=== PATIENT | female | born 1940 | race Caucasian/White ===

== ENCOUNTER 2016-06-16 18:04 | Inpatient (IN) | payer MEDICARE, OTHER ==
[~2016-06-16] VITALS: Ht 157.5 cm; Wt 51.1 kg
[~2016-06-16 18:04] MED LIST: AMLO10 PO; CEFT250T8 PO; GABA100C4 PO; ISOS10TA PO; LACTCHW3 CHEW; METO100T PO; POTA10TA2 PO; PRED5TAB PO; SERT-132 PO
[2016-06-16 18:10] VITALS: BP 166/91; PULSE 99; RESP 24; TEMP 99.2; O2SAT 96
--- NOTE | 2016-06-16 18:37 | PD ---
HPI Chief Complaint: Fever Time Seen by Provider: 18:37 Travel History International Travel<30 days: No Contact w/Intl Traveler<30days: No Traveled to known affect area: No History of Present Illness HPI 76-year-old female with history of renal transplant 2004, CAD, previous PR with stent placement, diabetes, hypertension, presents to the emergency department for evaluation of a fever. Patient began having fever this morning. Male who accompanies her tells me that about 2 weeks ago she sustained a laceration to the left lower extremity. She did not get repaired immediately but rather 2 days later. She was placed on oral antibiotics and took this for about 3 days until she developed diarrhea then stopped. He is concerned that this may be the source of her infection. Patient denies any chest pain or tightness. No cough or chest congestion. No nausea, vomiting, diarrhea. Tells me that her voids and bowel movements are normal. States that she feels weak and tired. She has no other symptoms to report. PFSH Past Medical History Arthritis: Yes Cancer: No Cardiovascular Problems: No Diabetes: Yes Diminished Hearing: No Endocrine: Yes GERD: Yes Genitourinary: Yes Hiatal Hernia: Yes ("double hernia") Hypertension: Yes Immune Disorder: No Insomnia: Yes Musculoskeletal: Yes Neurologic: No Psychiatric: No Reproductive: No Respiratory: No Immunizations Current: Yes Myocardial Infarction: Yes Renal Failure: Yes Thyroid Disease: Yes ?: Not Past Surgical History Body Medical Devices: 2 stents, "screws in toes" Cardiac Surgery: Yes (2 stents) Coronary Stent: Yes Eye Surgery: Yes (eyelid reconstruction) Genitourinary Surgery: Yes (KIDNEY TRANSPLANT) Social History Alcohol Use: Yes (WEEKLY) Tobacco Use: No Substance Use: No Allergies-Medications (Allergen,Severity, Reaction): Coded Allergies: Cipro (Verified Allergy, Severe, Itching, 06/16/16) Reported Meds & Prescriptions Reported Meds & Active Scripts Active Lactinex (Lactobacillus Acidophilus) 1 Chew 1 Tab CHEW DAILY Reported Tacrolimus 0.5 Mg Cap 0.5 Mg PO HS Prograf (Tacrolimus) 1 Mg Cap 1 Mg PO HS Tacrolimus 1 Mg Cap 2 Mg PO DAILY IN THE MORNING Mycophenolate (Mycophenolate Mofetil) 500 Mg Tab 500 Mg PO BID K-Tab (Potassium Chloride) 20 Meq Tab 20 Meq PO DAILY Gabapentin 100 Mg Cap 100 Mg PO TID Metoprolol Tartrate 100 Mg Tab 100 Mg PO BID Prednisone 5 Mg Tab 5 Mg PO DAILY Sertraline (Sertraline HCl) 50 Mg Tab 50 Mg PO DAILY Isosorbide Dinitrate 10 Mg Tab 10 Mg PO DAILY Review of Systems Except as stated in HPI: all other systems reviewed are Neg Physical Exam Narrative GENERAL: Ill-appearing elderly female patient, sitting in her chair, in no acute distress SKIN: Warm and dry. Approximated skin tear/wound to the left distal lower extremity of moderate erythema and edema surrounding it extending to the left distal foot. HEAD: Atraumatic. Normocephalic. EYES: Pupils equal and round. No scleral icterus. No injection or drainage. ENT: No nasal bleeding or discharge. Mucous membranes pink and moist. NECK: Trachea midline. No JVD. CARDIOVASCULAR: Elevated rate and rhythm. No murmur appreciated. RESPIRATORY: No accessory muscle use. Diminished to auscultation. Breath sounds equal bilaterally. GASTROINTESTINAL: Abdomen soft, non-tender, nondistended. Hepatic and splenic margins not palpable. MUSCULOSKELETAL: No obvious deformities. No clubbing. No cyanosis. NEUROLOGICAL: Awake and alert. No obvious cranial nerve deficits. Motor grossly within normal limits. Data Data Last Documented VS Vital Signs Date Time Temp Pulse Resp B/P Pulse Ox O2 Delivery O2 Flow Rate FiO2 06/16/16 18:10 99.2 99 24 166/91 96 Room Air Orders Electrocardiogram (06/16/16 18:33) Complete Blood Count With Diff (06/16/16 18:33) Comprehensive Metabolic Panel (06/16/16 18:33) Prothrombin Time / Inr (Pt) (06/16/16 18:33) Act Partial Throm Time (Ptt) (06/16/16 18:33) Lactic Acid Sepsis Protocol (06/16/16 18:33) Magnesium (Mg) (06/16/16 18:33) Lipase (06/16/16 18:33) Ckmb (Isoenzyme) Profile (06/16/16 18:33) Troponin I (06/16/16 18:33) Urinalysis - C+S If Indicated (06/16/16 18:33) Influenzae A/B Antigen (06/16/16 18:33) Blood Culture (06/16/16 18:33) Chest, Single Ap (06/16/16 18:33) Ct Brain W/O Iv Contrast(Rout) (06/16/16 ) Sodium Chlor 0.9% 1000 Ml Inj (Ns 1000 M (06/16/16 20:00) Cefepime Inj (Maxipime Inj) (06/16/16 20:00) Vancomycin Inj (Vancomycin Inj) (06/16/16 20:00) Labs Laboratory Tests Test 06/16/16 06/16/16 19:32 19:34 White Blood Count 11.3 TH/MM3 Red Blood Count 3.27 MIL/MM3 Hemoglobin 9.9 GM/DL Hematocrit 30.9 % Mean Corpuscular Volume 94.4 FL Mean Corpuscular Hemoglobin 30.2 PG Mean Corpuscular Hemoglobin 32.0 % Concent Red Cell Distribution Width 15.4 % Platelet Count 205 TH/MM3 Mean Platelet Volume 8.1 FL Neutrophils (%) (Auto) 85.9 % Lymphocytes (%) (Auto) 6.3 % Monocytes (%) (Auto) 6.7 % Eosinophils (%) (Auto) 0.6 % Basophils (%) (Auto) 0.5 % Neutrophils # (Auto) 9.7 TH/MM3 Lymphocytes # (Auto) 0.7 TH/MM3 Monocytes # (Auto) 0.8 TH/MM3 Eosinophils # (Auto) 0.1 TH/MM3 Basophils # (Auto) 0.1 TH/MM3 CBC Comment AUTO DIFF Prothrombin Time 12.0 SEC Prothromb Time International 1.1 RATIO Ratio Activated Partial 30.5 SEC Thromboplast Time Sodium Level 133 MEQ/L Potassium Level 4.3 MEQ/L Chloride Level 102 MEQ/L Carbon Dioxide Level 22.0 MEQ/L Anion Gap 9 MEQ/L Blood Urea Nitrogen 41 MG/DL Creatinine 3.94 MG/DL Estimat Glomerular Filtration 11 ML/MIN Rate Random Glucose 94 MG/DL Calcium Level 8.7 MG/DL Magnesium Level 1.6 MG/DL Aspartate Amino Transf 16 U/L (AST/SGOT) Albumin 3.4 GM/DL Lipase 199 U/L Lactic Acid Level 0.9 mmol/L [facility] Medical Decision Making Medical Screen Exam Complete: Yes Emergency Medical Condition: Yes Medical Record Reviewed: Yes Differential Diagnosis Sepsis versus pneumonia versus UTI versus influenza versus cellulitis versus infected wound versus renal failure Narrative Course 76-year-old female [facility]. Workup was initiated in triage. Once a medical bed becomes available, patient will be transferred and care assumed by that provider. Condition: Stable Nuvia Hilliard Jun 16, 2016 18:37
--- NOTE | 2016-06-16 19:22 | RADRPT ---
EXAM DATE/TIME: 06/16/2016 18:52 [facility] COMPARISON: CHEST SINGLE AP, March 20, 2016, 23:04. INDICATIONS : Patient has had a fever this morning. MEDICAL HISTORY : Myocardial infarction. Diabetes mellitus type 2. SURGICAL HISTORY : Renal transplant ENCOUNTER: Initial ACUITY: 1 day PAIN SCORE: 0/10 LOCATION: chest FINDINGS: Slight cardiomegaly seen. There are atherosclerotic calcifications of the aorta due to chronic athero sclerotic disease. Lungs are clear. CONCLUSION: No appreciable change. KByron Matos MD on June 16, 2016 at 19:19 Board Certified Radiologist. This report was verified electronically.
--- NOTE | 2016-06-16 19:24 | RADRPT ---
EXAM DATE/TIME: 06/16/2016 19:08 [facility] COMPARISON: CT BRAIN W/O CONTRAST, March 20, 2016, 23:19. INDICATIONS : Cephalgia, weakness, and loss of appetite RADIATION DOSE: 33.43 CTDIvol (mGy) MEDICAL HISTORY : Cardiovascular disease. Hypertension. SURGICAL HISTORY : None. ENCOUNTER: Initial ACUITY: 1 day PAIN SCALE: 5/10 LOCATION: cranial TECHNIQUE: Multiple contiguous axial images were obtained of the head. Using automated exposure control and adj ustment of the mA and/or kV according to patient size, radiation dose was kept as low as reasonably a chievable to obtain optimal diagnostic quality images. FINDINGS: There is no evidence for intracranial hemorrhage, mass effect, mass lesions, edema, or extra-axial fl uid collections. The visualized bony structures appear intact. The ventricles are normal size for t he patient's age. There are no signs of acute infarction for technique. There is slight mucoperioste al thickening within the left eithmoid air cells. CONCLUSION: Unremarkable study except for left eithmoid air cells mucoperiosteal thickening. Mago Matos MD on June 16, 2016 at 19:21 Board Certified Radiologist. This report was verified electronically.
--- NOTE | 2016-06-16 19:54 | PD ---
Physical Exam Date Seen by Provider: Jun 16, 2016 Time Seen by Provider: 19:45 Narrative GENERAL: Well-developed mildly ill appearing female in no acute distress no respiratory distress; gcs 15 SKIN: Warm and dry. HEAD: Normocephalic. EYES: No scleral icterus. No injection or drainage. ENT: Mucous memory is dry; airway is patent. NECK: Supple, trachea midline. No JVD or lymphadenopathy. No meningismus no nuchal rigidity. CARDIOVASCULAR: Regular rate and rhythm without murmurs, gallops, or rubs. RESPIRATORY: Breath sounds equal bilaterally. No accessory muscle use. GASTROINTESTINAL: Abdomen soft, non-tender, nondistended. MUSCULOSKELETAL: No cyanosis, or edema. Left lower extremity distal lateral last back healing skin tear laceration without redness induration fluctuance or drainage. BACK: Nontender without obvious deformity. No CVA tenderness. Data Data Last Documented VS Vital Signs Date Time Temp Pulse Resp B/P Pulse Ox O2 Delivery O2 Flow Rate FiO2 06/16/16 20:15 102.0 06/16/16 18:10 99 24 166/91 96 Room Air Orders Electrocardiogram (06/16/16 18:33) Complete Blood Count With Diff (06/16/16 18:33) Comprehensive Metabolic Panel (06/16/16 18:33) Prothrombin Time / Inr (Pt) (06/16/16 18:33) Act Partial Throm Time (Ptt) (06/16/16 18:33) Lactic Acid Sepsis Protocol (06/16/16 18:33) Magnesium (Mg) (06/16/16 18:33) Lipase (06/16/16 18:33) Ckmb (Isoenzyme) Profile (06/16/16 18:33) Troponin I (06/16/16 18:33) Urinalysis - C+S If Indicated (06/16/16 18:33) Influenzae A/B Antigen (06/16/16 18:33) Blood Culture (06/16/16 18:33) Chest, Single Ap (06/16/16 18:33) Ct Brain W/O Iv Contrast(Rout) (06/16/16 ) Sodium Chlor 0.9% 1000 Ml Inj (Ns 1000 M (06/16/16 20:00) Cefepime Inj (Maxipime Inj) (06/16/16 20:00) Vancomycin Inj (Vancomycin Inj) (06/16/16 20:00) Acetaminophen (Tylenol) (06/16/16 20:45) Cath For Specimen (06/16/16 21:29) Urine Culture (06/16/16 21:45) Labs Laboratory Tests Test 06/16/16 06/16/16 06/16/16 19:32 19:34 21:45 White Blood Count 11.3 TH/MM3 Red Blood Count 3.27 MIL/MM3 Hemoglobin 9.9 GM/DL Hematocrit 30.9 % Mean Corpuscular Volume 94.4 FL Mean Corpuscular Hemoglobin 30.2 PG Mean Corpuscular Hemoglobin 32.0 % Concent Red Cell Distribution Width 15.4 % Platelet Count 205 TH/MM3 Mean Platelet Volume 8.1 FL Neutrophils (%) (Auto) 85.9 % Lymphocytes (%) (Auto) 6.3 % Monocytes (%) (Auto) 6.7 % Eosinophils (%) (Auto) 0.6 % Basophils (%) (Auto) 0.5 % Neutrophils # (Auto) 9.7 TH/MM3 Lymphocytes # (Auto) 0.7 TH/MM3 Monocytes # (Auto) 0.8 TH/MM3 Eosinophils # (Auto) 0.1 TH/MM3 Basophils # (Auto) 0.1 TH/MM3 CBC Comment AUTO DIFF Differential Total Cells 100 Counted Neutrophils % (Manual) 87 % Band Neutrophils % 2 % Lymphocytes % 6 % Monocytes % 4 % Neutrophils # (Manual) 10.2 TH/MM3 Metamyelocytes 1 % Differential Comment FINAL DIFF MANUAL Platelet Estimate NORMAL Platelet Morphology Comment NORMAL Ovalocytes 2+ Prothrombin Time 12.0 SEC Prothromb Time International 1.1 RATIO Ratio Activated Partial 30.5 SEC Thromboplast Time Sodium Level 133 MEQ/L Potassium Level 4.3 MEQ/L Chloride Level 102 MEQ/L Carbon Dioxide Level 22.0 MEQ/L Anion Gap 9 MEQ/L Blood Urea Nitrogen 41 MG/DL Creatinine 3.94 MG/DL Estimat Glomerular Filtration 11 ML/MIN Rate Random Glucose 94 MG/DL Calcium Level 8.7 MG/DL Magnesium Level 1.6 MG/DL Total Bilirubin 0.4 MG/DL Aspartate Amino Transf 16 U/L (AST/SGOT) Alanine Aminotransferase 10 U/L (ALT/SGPT) Alkaline Phosphatase 63 U/L Total Creatine Kinase 58 U/L Troponin I 0.08 NG/ML Total Protein 7.1 GM/DL Albumin 3.4 GM/DL Lipase 199 U/L Lactic Acid Level 0.9 mmol/L Urine Color YELLOW Urine Turbidity CLEAR Urine pH 6.0 Urine Specific [place] 1.009 Urine Protein 100 mg/dL Urine Glucose (UA) NEG mg/dL Urine Ketones NEG mg/dL Urine Occult Blood TRACE Urine Nitrite NEG Urine Bilirubin NEG Urine Urobilinogen LESS THAN 2.0 MG/DL Urine Leukocyte Esterase LARGE Urine RBC 6 /hpf Urine WBC 48 /hpf Urine WBC Clumps OCC Urine Bacteria FEW /hpf Microscopic Urinalysis Comment CATH-CULTURE IND MDM Medical Record Reviewed: Yes Supervised Visit with MICKIE: Yes (patient evaluated and seen by me and concur with MICKIE assessment and plan.) Interpretation(s) EKG: Sinus rhythm rate 99 left bundle branch block; prior EKG from 04/01 shows evidence of left bundle branch block Last Impressions Chest X-Ray 06/16/16 1833 Signed Impressions: Service Date/Time: June 18:52 - CONCLUSION: No appreciable change. Mago Matos MD Head CT 06/16/16 0000 Signed Impressions: Service Date/Time: , June 16, 2016 19:08 - CONCLUSION: Unremarkable study except for left eithmoid air cells mucoperiosteal thickening. Mago Matos MD Differential Diagnosis Generalized weakness, febrile illness, sepsis, UTI, bacteremia, dehydration, electronic disturbance Narrative Course 76-year-old female with extensive past medical history including renal transplant in 2004 on chronic immunosuppressants anemia of chronic disease and secondary to kidney disease directions 10,000 units weekly last injection was Monday of this week hypothyroidism type 2 diabetes as well as history of CAD with stent placement anxiety depression reflux dyslipidemia hypertension and blood transfusions. Patient reportedly today was noted by significant other to have increasing fatigue and generalized weakness and reportedly had a temperature home of 102F. Medications were not administered as antipyretics prior to patient's arrival. Patient recently arrived here from [place] on 6 days ago on Monday. Patient has recently been on a four-day course of antibiotic for management of a wound infection to the left lower extremity however due to developing diarrhea this was discontinued 1 week ago on Monday. Patient was here in March 2016 and admitted for sepsis UTI. Patient was followed up as an outpatient March 29 by her primary here locally and was stable with plan to return to [place] and has done well following up with her neurologist there and was seen by her emergency room clinician prior to arrival leaving [place] on Monday. Patient's had no further diarrhea and has had continued good urine output. In view of patient's immunosuppression patient here will be started on IV antibiotics presumptively in view of reported temperature of 10 2 F lab values are pending urinalysis is pending. At 9:33 PM patient resting comfortably urinalysis pending troponin I is noted to be elevated at 0.08; worsening renal function creatinine 3.94 with GFR of 11 ; lactic acid is not elevated at 0.6 CBC is automated differential total white cell count is 11,300 with manual differential of 87% neutrophils Patient's case discussed with on-call medicine physician for admission for febrile illness, UTI possible sepsis patient's heart rate temperature meet SIRS criteria and urinalysis meets sepsis criteria; patient otherwise remaining hemodialysis stable has received IV antibiotics and per admitting physician patient will initially be admitted as an observation admission. Sepsis Criteria SIRS Criteria (2 or more): Heart rate over 90, WBC > 90752, < 4000 or > 10% bands Sepsis Criteria (SIRS+source): Infect source susp/known (uti) Physician Communication Physician Communication discussed with Dr aBy--will admit as OBS Diagnosis Primary Impression: Febrile illness Additional Impressions: UTI (urinary tract infection) Renal transplant recipient Admitting Information Admitting Physician Requests: Observation Karen José MD Jun 16, 2016 19:54
[2016-06-16 19:58] LABS: AUTOMATED NEUTROPHIL # 9.7 TH/MM3 (1.8-7.7); BASOPHIL # 0.1 TH/MM3 (0-0.2); BASOPHIL % 0.5 % (0.0-2.0); EOSINOPHIL # 0.1 TH/MM3 (0-0.4); EOSINOPHIL % 0.6 % (0.0-4.0); HEMATOCRIT 30.9 % (35.0-46.0); LYMPH % 6.3 % (9.0-44.0); LYMPHOCYTE # 0.7 TH/MM3 (1.0-4.8); MEAN CELL VOLUME 94.4 FL (80.0-100.0); MEAN CORPUSCULAR HEMOGLOBIN 30.2 PG (27.0-34.0); MONO % 6.7 % (0.0-8.0); NEUT % 85.9 % (16.0-70.0); PLATELET COUNT 205 TH/MM3 (150-450); RED BLOOD COUNT 3.27 MIL/MM3 (4.00-5.30); RED CELL DISTRIBUTION WIDTH 15.4 % (11.6-17.2); WHITE BLOOD COUNT 11.3 TH/MM3 (4.0-11.0)
[2016-06-16] MEDS ORDERED: VANCOMYCIN INJ 1,000 MG in SODIUM CHLOR 0.9% 250 ML INJ 250 ML IV ONE (20:00)
[2016-06-16] MEDS ORDERED: CEFEPIME INJ 2,000 MG in SODIUM CHLORIDE 0.9% INJ 100 ML IV ONE (20:00)
[2016-06-16] MEDS ORDERED: SODIUM CHLOR 0.9% 1000 ML INJ 1,000 ML IV ONE (20:00)
[2016-06-16 20:05] LABS: APTT (PATIENT) 30.5 SEC (24.3-30.1); INTERNATIONAL NORMALIZED RATIO 1.1 RATIO
[2016-06-16 20:08] LABS: HEMO FLAGS AUTO DIFF
[2016-06-16 20:15] VITALS: BP 159/79; PULSE 78; RESP 18; TEMP 102; O2SAT 96
[2016-06-16] MEDS ORDERED: POTA1TAB4 PO (20:18)
[2016-06-16] MEDS ORDERED: TACR1CAP PO (20:24)
[2016-06-16] MEDS ORDERED: TACR1 PO (20:24)
[2016-06-16] MEDS ORDERED: MYCO500T PO (20:24)
[2016-06-16 20:26] LABS: ANION GAP 9 MEQ/L (5-15); AST (GOT) 16 U/L (15-37); BLOOD UREA NITROGEN 41 MG/DL (7-18); CHLORIDE 102 MEQ/L (98-107); GLOMERULAR FILTRATION RATE 11 ML/MIN (>89); MAGNESIUM 1.6 MG/DL (1.5-2.5); POTASSIUM 4.3 MEQ/L (3.5-5.1); SODIUM (NA) 133 MEQ/L (136-145)
[2016-06-16] MEDS ORDERED: TACR0.5C PO (20:26)
[2016-06-16 20:32] LABS: ALKALINE PHOSPHATASE 63 U/L (45-117); ALT (GPT) 10 U/L (10-53); CREATINE KINASE 58 U/L (26-192); TOTAL BILIRUBIN ADULT 0.4 MG/DL (0.2-1.0)
[2016-06-16] MEDS ORDERED: ACETAMINOPHEN 325 MG TAB PO ONE (20:45)
[2016-06-16 20:47] LABS: BANDS 2 % (0-6); METAMYELOCYTES 1 % (0-1); NEUTROPHIL # MANUAL DIFF 10.2 TH/MM3 (1.8-7.7); POLYS (SEG NEUTROPHILS) 87 % (16-70); WBC DIFF SAMPLE 100
[2016-06-16 20:48] LABS: OVALOCYTES 2+ (NORMAL); PLATELET ESTIMATE SMEAR NORMAL (NORMAL); PLATELET MORPHOLOGY NORMAL (NORMAL); SCAN/DIFF FINAL DIFF MANUAL
[2016-06-16 22:45] LABS: BACTERIA, URINE FEW /hpf; BLOOD, URINE TRACE (NEG); GLUCOSE,URINE NEG (NEG); KETONE, URINE NEG (NEG); NITRITE,URINE NEG (NEG); URINE COLOR YELLOW (YELLW/STRAW)
[2016-06-16 22:46] LABS: COMMENT (UR) CATH-CULTURE IND; CULTURE IF INDICATED CATH CULTURE IND
[2016-06-16] MEDS ORDERED: SODIUM CHLORIDE 0.9% FLUSH 5 ML FLUSH IVF PRN (23:15)
[2016-06-17] VITALS (9 sets, daily range): BP systolic 120–185; BP diastolic 66–90; PULSE 72–103; RESP 17–19; TEMP 97.3–102.1; O2SAT 94–99
[2016-06-17] MEDS ORDERED: NALOXONE HCL 0.4 MG/ML AMP IV PRN (00:30)
[2016-06-17] MEDS ORDERED: SODIUM CHLORIDE 0.9% FLUSH 5 ML FLUSH FLUSH PRN (00:30)
[2016-06-17] MEDS ORDERED: GLUCAGON 1 MG/ML VIAL OTHER PRN (00:30)
[2016-06-17] MEDS ORDERED: DEXTROSE 50% IN WATER 50 ML VIAL(D50) IV PUSH PRN (00:30)
--- NOTE | 2016-06-17 04:35 | HHI.HP ---
[facility] Service [facility] Primary Care Physician Non-Staff Admission Diagnosis febrile illness; UTI Diagnoses: Chief Complaint: headaches, chills, fatigue Travel History International Travel<30 Days: No Contact w/Intl Traveler <30 Da: No Traveled to Known Affected Are: No Sepsis Criteria SIRS Criteria (2 or more): Temp > 100.9 or < 96.8, Heart rate over 90, WBC > 86374, < 4000 or > 10% bands Sepsis Criteria (SIRS+source): Infect source susp/known History of Present Illness History taken from patient and ED physician. 76 y/o female with history of DM, HTN, osteoarthritis and renal transplant was brought in by her with complaints of headaches, chills, and fatigue. Patient states she has been fatigued with headaches for about a week. Upon assessment patient is found to be very chilly, and requiring many blankets. Currently afebrile. She denies any cough, sob or chest pain. She was seen in March for UTI/Sepsis and was treated with IV Cefepime, urine culture grew klebsiella. Bottom Precipitator Operator is Dr. Lima in [place], last admission she was seen in 03/[address] Diana Hemotologist is Dr Eduard Lima Review of Systems Constitutional: COMPLAINS OF: Fatigue, Fever, Chills Respiratory: DENIES: Cough, Sputum production, Shortness of breath Cardiovascular: DENIES: Chest pain, Palpitations Gastrointestinal: DENIES: Constipation, Diarrhea, Nausea, Vomiting Genitourinary: DENIES: Hematuria, Dysuria Musculoskeletal: DENIES: Back pain, Neck pain Integumentary: DENIES: Rash Hematologic/lymphatic: DENIES: Lymphadenopathy Immunologic/allergic: DENIES: Urticaria Neurologic: COMPLAINS OF: Headache Past Family Social History Past Medical History HTN, CKD Stage V and h/o Renal Transplant on Immunosuppressant Therapy Past Surgical History Renal Transplant Reported Medications Reported Meds & Active Scripts Active Lactinex (Lactobacillus Acidophilus) 1 Chew 1 Tab CHEW DAILY Reported Tacrolimus 0.5 Mg Cap 0.5 Mg PO HS Prograf (Tacrolimus) 1 Mg Cap 1 Mg PO HS Tacrolimus 1 Mg Cap 2 Mg PO DAILY IN THE MORNING Mycophenolate (Mycophenolate Mofetil) 500 Mg Tab 500 Mg PO BID K-Tab (Potassium Chloride) 20 Meq Tab 20 Meq PO DAILY Gabapentin 100 Mg Cap 100 Mg PO TID Metoprolol Tartrate 100 Mg Tab 100 Mg PO BID Prednisone 5 Mg Tab 5 Mg PO DAILY Sertraline (Sertraline HCl) 50 Mg Tab 50 Mg PO DAILY Isosorbide Dinitrate 10 Mg Tab 10 Mg PO DAILY Allergies: Coded Allergies: Cipro (Verified Allergy, Severe, Itching, 06/16/16) Active Ordered Medications Current Medications Medications (Trade) Dose Ordered Sig/Paige Route Start Time Stop Time Status Last Admin (NS Flush) 2 ml UNSCH PRN FLUSH 06/17/16 00:30 (NS Flush) 2 ml BID FLUSH 06/17/16 09:00 (Narcan Inj) 0.4 mg UNSCH PRN IV 06/17/16 00:30 (D50w (Vial) Inj) 25 ml UNSCH PRN IV PUSH 06/17/16 00:30 (Glucagon Inj) 1 mg UNSCH PRN OTHER 06/17/16 00:30 (Neurontin) 100 mg TID PO 06/17/16 09:00 (Isordil) 10 mg DAILY PO 06/17/16 09:00 (Lopressor) 100 mg BID PO 06/17/16 09:00 (KCl) 20 meq DAILY PO 06/17/16 09:00 (Deltasone) 5 mg DAILY PO 06/17/16 09:00 (Zoloft) 50 mg DAILY PO 06/17/16 09:00 (Prograf) 0.5 mg HS PO 06/17/16 21:00 (Prograf) 2 mg DAILY PO 06/17/16 09:00 (Prograf) 1 mg HS PO 06/17/16 21:00 Lactobacillus Acidophilus 1 tab 1 tab DAILY PO 06/17/16 09:00 (Maxipime Inj/NS Inj) 100 ml @ 200 mls/hr Q24H IV 06/17/16 20:00 (Cellcept) 500 mg Q12H PO 06/17/16 06:00 Family History No h/o DM or CAD Social History Tobacco use: Quit 2009 Alcohol use: one beer a month Patient lives with her and does not drive Physical Exam Vital Signs Vital Signs Date Time Temp Pulse Resp B/P Pulse Ox O2 Delivery O2 Flow Rate FiO2 06/17/16 02:10 98.4 82 19 185/90 99 06/17/16 00:00 98.6 84 18 161/82 95 Room Air 06/16/16 20:15 102.0 78 18 159/79 96 Room Air 06/16/16 18:10 99.2 99 24 166/91 96 Room Air Physical Exam GENERAL: This is a well-nourished, well-developed patient, in no apparent distress. SKIN: No rashes, ecchymoses or lesions. Warm and dry. HEAD: Atraumatic. Normocephalic. EYES: Pupils equal round and reactive. ENT: Nose without bleeding, purulent drainage or septal hematoma. Airway patent. NECK: Trachea midline. No JVD CARDIOVASCULAR: Regular rate and rhythm without murmurs, gallops, or rubs. RESPIRATORY: Clear to auscultation. Breath sounds equal bilaterally; bilateral expiratory wheezing GASTROINTESTINAL: Abdomen soft, non-tender, nondistended. MUSCULOSKELETAL: Extremities without clubbing, cyanosis, or edema.No calf tenderness. NEUROLOGICAL: Awake and alert. Motor and sensory grossly within normal limits. Normal speech. Laboratory Laboratory Tests Test 06/16/16 06/16/16 06/16/16 19:32 19:34 21:45 White Blood Count 11.3 Red Blood Count 3.27 Hemoglobin 9.9 Hematocrit 30.9 Mean Corpuscular Volume 94.4 Mean Corpuscular Hemoglobin 30.2 Mean Corpuscular Hemoglobin 32.0 Concent Red Cell Distribution Width 15.4 Platelet Count 205 Mean Platelet Volume 8.1 Neutrophils (%) (Auto) 85.9 Lymphocytes (%) (Auto) 6.3 Monocytes (%) (Auto) 6.7 Eosinophils (%) (Auto) 0.6 Basophils (%) (Auto) 0.5 Neutrophils # (Auto) 9.7 Lymphocytes # (Auto) 0.7 Monocytes # (Auto) 0.8 Eosinophils # (Auto) 0.1 Basophils # (Auto) 0.1 CBC Comment AUTO DIFF Differential Total Cells 100 Counted Neutrophils % (Manual) 87 Band Neutrophils % 2 Lymphocytes % 6 Monocytes % 4 Neutrophils # (Manual) 10.2 Metamyelocytes 1 Differential Comment FINAL DIFF MANUAL Platelet Estimate NORMAL Platelet Morphology Comment NORMAL Ovalocytes 2+ Prothrombin Time 12.0 Prothromb Time International 1.1 Ratio Activated Partial 30.5 Thromboplast Time Sodium Level 133 Potassium Level 4.3 Chloride Level 102 Carbon Dioxide Level 22.0 Anion Gap 9 Blood Urea Nitrogen 41 Creatinine 3.94 Estimat Glomerular Filtration 11 Rate Random Glucose 94 Calcium Level 8.7 Magnesium Level 1.6 Total Bilirubin 0.4 Aspartate Amino Transf 16 (AST/SGOT) Alanine Aminotransferase 10 (ALT/SGPT) Alkaline Phosphatase 63 Total Creatine Kinase 58 Troponin I 0.08 Total Protein 7.1 Albumin 3.4 Lipase 199 Lactic Acid Level 0.9 Urine Color YELLOW Urine Turbidity CLEAR Urine pH 6.0 Urine Specific [place] 1.009 Urine Protein 100 Urine Glucose (UA) NEG Urine Ketones NEG Urine Occult Blood TRACE Urine Nitrite NEG Urine Bilirubin NEG Urine Urobilinogen LESS THAN 2.0 Urine Leukocyte Esterase LARGE Urine RBC 6 Urine WBC 48 Urine WBC Clumps OCC Urine Bacteria FEW Microscopic Urinalysis Comment CATH-CULTURE IND Date/Time Procedure Status Source Growth 06/16/16 23:00 Aerobic Blood Culture Received Blood Peripheral Pending 06/16/16 23:00 Anaerobic Blood Culture Received Blood Peripheral Pending 06/16/16 21:45 Urine Culture Received Urine Catheterized Urine Pending 06/16/16 21:45 Influenza Types A,B Antigen (SHARON) - Final Complete Nasal Washing NEGATIVE FOR FLU A AND B ANTIGEN.... Result Diagram: 06/16/16 1932 06/16/16 193 Imaging Last Impressions Chest X-Ray 06/16/16 1833 Signed Impressions: Service Date/Time: June 18:52 - CONCLUSION: No appreciable change. Mago Matos MD Head CT 06/16/16 0000 Signed Impressions: Service Date/Time: June 19:08 - CONCLUSION: Unremarkable study except for left eithmoid air cells mucoperiosteal thickening. Mago Matos MD Assessment and Plan Problem List: (1) UTI (urinary tract infection) ICD Code: N39.0 Status: Acute (2) Sepsis ICD Code: A41.9 Status: Acute (3) CKD (chronic kidney disease) stage 5, GFR less than 15 ml/min ICD Code: N18.5 Status: Chronic (4) DM (diabetes mellitus) ICD Code: E11.9 Status: Chronic Assessment and Plan 76-year-old female with a history of diabetes, osteoarthritis, hypertension, dyslipidemia, and kidney transplant on immunosuppressant therapies presented with: UTI/sepsis Labs: WBC 11.3, vitals fever 102, heart rate 99 UA positive -Urine culture pending -Cefepime IV -Trend CBC Acute on Chronic kidney disease stage 5/history of renal transplant Labs: Creatinine 3.9 baseline 2.8 -1 L bolus given in the ED -Consult nephrology -Renal diet -Reorder home medications Prograf Diabetes, chronic -Accu-Cheks AC/hS with SSI DVT prophylaxis: SCDs Written by Tammi BENITEZ, acting as scribe for Dr. Bay on 06/17/16 at 0530. The documentation accurately reflects the work performed [id number] and decisions made by me and the physician Dr Bay on 06/17/16. The documentation accurately reflects the work performed [id number] by me on at 0530 Discussed Condition With Patient and ED physician Tammi Rueda Jun 17, 2016 04:35 Sulaiman Bay MD Jun 17, 2016 09:01
[2016-06-17] MEDS: INSULIN ASPART SUPPLEMENTAL SCALE SQ SCH ×4 (06:04→21:00)
[2016-06-17] MEDS: MYCOPHENOLATE MOFETIL 500 MG TAB PO SCH ×2 (06:10→09:33)
[2016-06-17] MEDS ORDERED: MYCOPHENOLATE MOFETIL 500 MG TAB PO SCH (09:00)
[2016-06-17] MEDS ORDERED: SODIUM CHLORIDE 0.9% FLUSH 5 ML FLUSH IVF SCH (09:00)
[2016-06-17] MEDS: TACROLIMUS 1 MG CAP PO SCH ×2 (09:33→22:10)
[2016-06-17] MEDS: SERTRALINE HCL 50 MG TAB PO SCH (09:33)
[2016-06-17] MEDS: SODIUM CHLORIDE 0.9% FLUSH 5 ML FLUSH FLUSH SCH ×2 (09:33→21:00)
[2016-06-17] MEDS: METOPROLOL TARTRATE 100 MG TAB PO SCH ×2 (09:34→22:10)
[2016-06-17] MEDS: predniSONE 5 MG TAB PO SCH (09:34)
[2016-06-17] MEDS: ISOSORBIDE DINITRATE 10 MG TAB PO SCH (09:34)
[2016-06-17] MEDS: LACTOBACILLUS ACIDOPHILUS TAB PO SCH (09:34)
[2016-06-17] MEDS: POTASSIUM CHLORIDE 20 MEQ CONTROLLED RELEASE TAB PO SCH (09:34)
[2016-06-17] MEDS: GABAPENTIN 100 MG CAP PO SCH ×3 (09:34→17:55)
[2016-06-17] MEDS: ACETAMINOPHEN 325 MG TAB PO PRN (09:34)
[2016-06-17] MEDS ORDERED: SODIUM CHLORID 0.9% 500 ML INJ 500 ML IV SCH (09:45)
--- NOTE | 2016-06-17 09:48 | HHI.PR ---
Subjective Remarks Follow-up for sepsis with UTI. The patient reports feeling a little better this morning. Still febrile, Tmax 102.1 this morning. She reports sweats, chills, and mild headache. She still feels fatigued. She denies dysuria or suprapubic pain but does report increased urinary frequency recently. Denies any chest pain, shortness of breath, nausea or vomiting. Objective Vitals Vital Signs Date Time Temp Pulse Resp B/P Pulse Ox O2 Delivery O2 Flow Rate FiO2 06/17/16 08:41 102.1 99 17 182/87 96 06/17/16 05:36 95 06/17/16 02:10 98.4 82 19 185/90 99 06/17/16 00:00 98.6 84 18 161/82 95 Room Air 06/16/16 20:15 102.0 78 18 159/79 96 Room Air 06/16/16 18:10 99.2 99 24 166/91 96 Room Air Result Diagram: 06/16/16 [id number]/[id number]/161931 Imaging Last Impressions Chest X-Ray 06/16/16 1833 Signed Impressions: Service Date/Time: June 18:52 - CONCLUSION: No appreciable change. Mago Matos MD Head CT 06/16/16 0000 Signed Impressions: Service Date/Time: June 19:08 - CONCLUSION: Unremarkable study except for left eithmoid air cells mucoperiosteal thickening. Mago Matos MD Objective Remarks GENERAL: Well-nourished, well-developed pleasant elderly female patient in [facility]. SKIN: Warm and dry. No rash. HEENT: Normocephalic. Atraumatic. Pupils equal and round. No scleral icterus. No injection or drainage. Mucous membranes pink and moist. NECK: Supple. Trachea midline. CARDIOVASCULAR: Tachycardic, Regular rhythm. S1, S2 noted. No murmur appreciated. RESPIRATORY: No accessory muscle use. Clear to auscultation. Breath sounds equal bilaterally. GASTROINTESTINAL: Abdomen soft, non-tender, nondistended. Normoactive bowel sounds x4. MUSCULOSKELETAL: No obvious deformities. Extremities without clubbing, cyanosis , or edema. NEUROLOGICAL: Awake and alert. No obvious cranial nerve deficits. Motor grossly within normal limits. Moves all extremities spontaneously. Normal speech. PSYCHIATRIC: Appropriate mood and affect; insight and judgment normal. Medications and IVs Current Medications Medications (Trade) Dose Ordered Sig/Paige Route Start Time Stop Time Status Last Admin (NS Flush) 2 ml UNSCH PRN FLUSH 06/17/16 00:30 (NS Flush) 2 ml BID FLUSH 06/17/16 09:00 (Narcan Inj) 0.4 mg UNSCH PRN IV 06/17/16 00:30 (D50w (Vial) Inj) 25 ml UNSCH PRN IV PUSH 06/17/16 00:30 (Glucagon Inj) 1 mg UNSCH PRN OTHER 06/17/16 00:30 (Neurontin) 100 mg TID PO 06/17/16 09:00 (Isordil) 10 mg DAILY PO 06/17/16 09:00 (Lopressor) 100 mg BID PO 06/17/16 09:00 (KCl) 20 meq DAILY PO 06/17/16 09:00 (Deltasone) 5 mg DAILY PO 06/17/16 09:00 (Zoloft) 50 mg DAILY PO 06/17/16 09:00 (Prograf) 0.5 mg HS PO 06/17/16 21:00 (Prograf) 2 mg DAILY PO 06/17/16 09:00 (Prograf) 1 mg HS PO 06/17/16 21:00 Lactobacillus Acidophilus 1 tab 1 tab DAILY PO 06/17/16 09:00 (Maxipime Inj/NS Inj) 100 ml @ 200 mls/hr Q24H IV 06/17/16 20:00 (Cellcept) 500 mg Q12H PO 06/17/16 06:00 06/17/16 06:10 (Tylenol) 650 mg Q6H PRN PO 06/17/16 09:30 Urinary Catheter: No Vascular Central Line Catheter: No A/P Problem List: (1) UTI (urinary tract infection) ICD Code: N39.0 Status: Acute (2) Sepsis ICD Code: A41.9 Status: Acute (3) CKD (chronic kidney disease) stage 5, GFR less than 15 ml/min ICD Code: N18.5 Status: Chronic (4) DM (diabetes mellitus) ICD Code: E11.9 Status: Chronic Assessment and Plan 76-year-old female with a history of diabetes, osteoarthritis, hypertension, dyslipidemia, and kidney transplant on immunosuppressant therapies presented with: Sepsis with Complicated UTI, Failed Outpatient: on immunosuppression. WBC 11.3 , febrile 102.1, HR 99. Lactic acid 0.9. Urinalysis evidence of UTI. Urine culture pending. Continue IV Cefepime. Monitor CBC. Give gentle IVF. Monitor for improvement. Acute on Chronic kidney disease, stage 5, history of renal transplant: Upon arrival, Creatinine 3.9, baseline ~2.8. S/p 1 L IVF bolus given in the ED, give additional 500cc at 50ml/hr. Check renal U/S. Consult nephrology. Continue patient's home meds, Prograf. Avoid further nephrotoxins. Diabetes, chronic: Monitor Accu-Cheks AC/hS and cover with SSI. All other medical conditions stable, continue home meds as appropriate. DVT prophylaxis: SCDs Discussed with Dr. South. Discharge Planning Admit to inpatient with complicated UTI, ALEXIA, Sepsis, Failed Outpatient. Vicky Brown PA-C Jun 17, 2016 9:48 am
[2016-06-17 10:16] LABS: AUTOMATED NEUTROPHIL # 10.8 TH/MM3 (1.8-7.7); BASOPHIL # 0.1 TH/MM3 (0-0.2); BASOPHIL % 0.4 % (0.0-2.0); EOSINOPHIL # 0.1 TH/MM3 (0-0.4); EOSINOPHIL % 0.5 % (0.0-4.0); HEMATOCRIT 26.9 % (35.0-46.0); HEMO FLAGS DIFF FINAL; LYMPH % 5.7 % (9.0-44.0); LYMPHOCYTE # 0.7 TH/MM3 (1.0-4.8); MEAN CELL VOLUME 94.7 FL (80.0-100.0); MEAN CORPUSCULAR HEMOGLOBIN 30.4 PG (27.0-34.0); MEAN CORPUSCULAR HGB CONC 32.1 % (32.0-36.0); MONO % 6.4 % (0.0-8.0); PLATELET COUNT 171 TH/MM3 (150-450); RED BLOOD COUNT 2.84 MIL/MM3 (4.00-5.30); RED CELL DISTRIBUTION WIDTH 15.5 % (11.6-17.2); WHITE BLOOD COUNT 12.5 TH/MM3 (4.0-11.0)
[2016-06-17 10:43] LABS: BICARBONATE 20.9 MEQ/L (21.0-32.0); POTASSIUM 4.2 MEQ/L (3.5-5.1)
--- NOTE | 2016-06-17 12:26 | RADRPT ---
EXAM DATE/TIME: 06/17/2016 09:29 [facility] COMPARISON: US KIDNEY / TRANSPLANT, March 13, 2013, 19:45. INDICATIONS : Increased labs. MEDICAL HISTORY : Hypertension. Myocardial infarction. Hernia. CAD. Diabetic. Renal failure. SURGICAL HISTORY : Renal transplant. Coronary stent. Cardiac stent. ENCOUNTER: Initial ACUITY: 1 day PAIN SCORE: 0/10 LOCATION: Kidneys. MEASUREMENTS: TRANSPLANT KIDNEY: 11.3 x 5.7 x 6.4 cm LOCATION: Right lower quadrant. ARCUATE ARTERIES RESISTIVE INDEX: Upper - 0.73 Mid - 0.72 Lower - 0.77 MAIN RENAL ARTERY VELOCITY: (cm/sec): 30.3 cm/sec MAIN RENAL VEIN: Patent EXTERNAL ILIAC ARTERY VELOCITY (cm/sec): 110 cm/sec * NORMAL DOPPLER FINDINGS Arcuate arteries - RI = 0.6 - 0.8 Renal artery = under 200 cm/sec Renal vein = May be monophasic with continuous flow or demonstrate some pulsatility with cardiac cycl e FINDINGS: TRANSPLANT KIDNEY: The kidney is somewhat echogenic. There is no cortical thinning. Significant hydronephrosis is seen. Small simple cysts are observed. The largest measures 16 mm. URINARY BLADDER: Within normal limits given the degree of distension. CONCLUSION: 1. Hydronephrosis. This is a new finding from the prior study of 2012. 2. Mild increase in echogenicity of the kidney which is a nonspecific finding. Dexter Jane Jr., MD on June 17, 2016 at 12:18 Board Certified Radiologist. This report was verified electronically.
--- NOTE | 2016-06-17 12:29 | PD.CONS ---
HPI Service Nephrology Consult Requested By Reason for Consult ALEXIA on CKD, hx of renal transplant Primary Care Physician Non-Staff History of Present Illness This is a 76 y/o pt known to our service. She is a seasonal [place], stays through [place] each year. 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 Other PMH of HTN , unknown etiology of renal dysfunction. She was on HD for 8 months prior to transplant. She came in for lethargy, fever, and headache, diagnosed with UTI for which she has been admitted for in the past. Urine cx in Mar grew Klebsiella. She was not on Abx prior to this hospitalization. Also hx of anemia for which she is treated in [place] with Aranesp. On exam she is awake, alert and in no distressed. We were consulted for renal management. In looking through her records, it her creatinine was 2.4 at discharge in March, GFR 19. on admission her Cr measured 3.9 which improved to 3.6 with fluids. She is a full code. 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, Immunosuppressant Therapy Creatinine from March 2016 2.4, GFR 19 HTN Anemia Past Surgical History Renal transplant Reported Medications Prograf (Tacrolimus) 1 Mg Cap 1.5 Mg PO HS Tacrolimus 1 Mg Cap 2 Mg PO DAILY IN THE MORNING Mycophenolate (Mycophenolate Mofetil) 500 Mg Tab 500 Mg PO BID K-Tab (Potassium Chloride) 20 Meq Tab 20 Meq PO DAILY Gabapentin 100 Mg Cap 100 Mg PO TID Metoprolol Tartrate 100 Mg Tab 100 Mg PO BID Prednisone 5 Mg Tab 5 Mg PO DAILY Sertraline (Sertraline HCl) 50 Mg Tab 50 Mg PO DAILY Isosorbide Dinitrate 10 Mg Tab 10 Mg PO DAILY Active Ordered Medications Current Medications Medications (Trade) Dose Ordered Sig/Paige Route Start Time Stop Time Status Last Admin (NS Flush) 2 ml UNSCH PRN FLUSH 06/17/16 00:30 (NS Flush) 2 ml BID FLUSH 06/17/16 09:00 06/17/16 09:33 (Narcan Inj) 0.4 mg UNSCH PRN IV 06/17/16 00:30 (D50w (Vial) Inj) 25 ml UNSCH PRN IV PUSH 06/17/16 00:30 (Glucagon Inj) 1 mg UNSCH PRN OTHER 06/17/16 00:30 (Neurontin) 100 mg TID PO 06/17/16 09:00 06/17/16 09:34 (Isordil) 10 mg DAILY PO 06/17/16 09:00 06/17/16 09:34 (Lopressor) 100 mg BID PO 06/17/16 09:00 06/17/16 09:34 (KCl) 20 meq DAILY PO 06/17/16 09:00 06/17/16 09:34 (Deltasone) 5 mg DAILY PO 06/17/16 09:00 06/17/16 09:34 (Zoloft) 50 mg DAILY PO 06/17/16 09:00 06/17/16 09:33 (Prograf) 0.5 mg HS PO 06/17/16 21:00 (Prograf) 2 mg DAILY PO 06/17/16 09:00 06/17/16 09:33 (Prograf) 1 mg HS PO 06/17/16 21:00 Lactobacillus Acidophilus 1 tab 1 tab DAILY PO 06/17/16 09:00 06/17/16 09:34 (Maxipime Inj/NS Inj) 100 ml @ 200 mls/hr Q24H IV 06/17/16 20:00 (Cellcept) 500 mg Q12H PO 06/17/16 06:00 06/17/16 09:33 Acetaminophen 650 mg 650 mg Q6H PRN PO 06/17/16 09:30 06/17/16 09:34 (NS 500 ml Inj) 500 ml @ 50 mls/hr Q10H IV 06/17/16 09:45 06/17/16 19:44 06/17/16 10:25 Family History No hx of renal disorders Social History She and her are from [place], live here seasonally through august former smoker ETOH very rare retired ambulatory full code (Noa Vazquez) Physical Exam Vital Signs Vital Signs Date Time Temp Pulse Resp B/P Pulse Ox O2 Delivery O2 Flow Rate FiO2 06/17/16 08:41 102.1 99 17 182/87 96 06/17/16 07:40 103 06/17/16 05:36 95 06/17/16 02:10 98.4 82 19 185/90 99 06/17/16 00:00 98.6 84 18 161/82 95 Room Air 06/16/16 20:15 102.0 78 18 159/79 96 Room Air 06/16/16 18:10 99.2 99 24 166/91 96 Room Air Physical Exam Elderly female, lying supine, awake/alert Neuro: follows commands CV: S1/S2, Regular no murmurs Lungs: Clear in upper andres, decreased in bases Abd: soft, non tender Ext: no edema, pedal pulses normal Laboratory Laboratory Tests Test 06/16/16 06/16/16 06/16/16 06/17/16 19:32 19:34 21:45 09:58 White Blood Count 11.3 12.5 Red Blood Count 3.27 2.84 Hemoglobin 9.9 8.6 Hematocrit 30.9 26.9 Mean Corpuscular Volume 94.4 94.7 Mean Corpuscular Hemoglobin 30.2 30.4 Mean Corpuscular Hemoglobin 32.0 32.1 Concent Red Cell Distribution Width 15.4 15.5 Platelet Count 205 171 Mean Platelet Volume 8.1 7.8 Neutrophils (%) (Auto) 85.9 87.0 Lymphocytes (%) (Auto) 6.3 5.7 Monocytes (%) (Auto) 6.7 6.4 Eosinophils (%) (Auto) 0.6 0.5 Basophils (%) (Auto) 0.5 0.4 Neutrophils # (Auto) 9.7 10.8 Lymphocytes # (Auto) 0.7 0.7 Monocytes # (Auto) 0.8 0.8 Eosinophils # (Auto) 0.1 0.1 Basophils # (Auto) 0.1 0.1 CBC Comment AUTO DIFF DIFF FINAL Differential Total Cells 100 Counted Neutrophils % (Manual) 87 Band Neutrophils % 2 Lymphocytes % 6 Monocytes % 4 Neutrophils # (Manual) 10.2 Metamyelocytes 1 Differential Comment FINAL DIFF MANUAL Platelet Estimate NORMAL Platelet Morphology Comment NORMAL Ovalocytes 2+ Prothrombin Time 12.0 Prothromb Time International 1.1 Ratio Activated Partial 30.5 Thromboplast Time Sodium Level 133 137 Potassium Level 4.3 4.2 Chloride Level 102 105 Carbon Dioxide Level 22.0 20.9 Anion Gap 9 11 Blood Urea Nitrogen 41 41 Creatinine 3.94 3.64 Estimat Glomerular Filtration 11 12 Rate Random Glucose 94 103 Calcium Level 8.7 8.4 Magnesium Level 1.6 Total Bilirubin 0.4 Aspartate Amino Transf 16 (AST/SGOT) Alanine Aminotransferase 10 (ALT/SGPT) Alkaline Phosphatase 63 Total Creatine Kinase 58 60 Troponin I 0.08 0.11 Total Protein 7.1 Albumin 3.4 Lipase 199 Lactic Acid Level 0.9 Urine Color YELLOW Urine Turbidity CLEAR Urine pH 6.0 Urine Specific [place] 1.009 Urine Protein 100 Urine Glucose (UA) NEG Urine Ketones NEG Urine Occult Blood TRACE Urine Nitrite NEG Urine Bilirubin NEG Urine Urobilinogen LESS THAN 2.0 Urine Leukocyte Esterase LARGE Urine RBC 6 Urine WBC 48 Urine WBC Clumps OCC Urine Bacteria FEW Microscopic Urinalysis Comment CATH-CULTURE IND Date/Time Procedure Status Source Growth 06/16/16 23:00 Aerobic Blood Culture - Preliminary Resulted Blood Peripheral NO GROWTH IN 1 DAY 06/16/16 23:00 Anaerobic Blood Culture - Preliminary Resulted Blood Peripheral NO GROWTH IN 1 DAY 06/16/16 21:45 Urine Culture Received Urine Catheterized Urine Pending 06/16/16 21:45 Influenza Types A,B Antigen (SHARON) - Final Complete Nasal Washing NEGATIVE FOR FLU A AND B ANTIGEN.... (Noa Vazquez) Result Diagram: 06/17/16 0958 06/17/16 0958 Imaging Last 48 hours Impressions Chest X-Ray 06/16/16 1833 Signed Impressions: Service Date/Time: June 18:52 - CONCLUSION: No appreciable change. Mago Matos MD Head CT 06/16/16 0000 Signed Impressions: Service Date/Time: June 19:08 - CONCLUSION: Unremarkable study except for left eithmoid air cells mucoperiosteal thickening. Mago Matos MD (Noa Vazquez) Assessment and Plan Problem List: (1) UTI (urinary tract infection) Plan: WBC elevated, she was placed on cefepime; await culture report blood cx negative to date (2) Acute on chronic kidney failure Plan: She has underlying CKD 4, in March creatinine measured 2.4 at discharge, GFR was 19 creatinine 3.9 on arrival, improving with current treatment on IVF, continue for now, taper off as clinically improved electrolytes are unremarkable; C02 slightly low; monitor for now she is making a good amount of urine quantify proteinuria, had over one gram in March. continue immunosuppression as below, avoid nephrotoxins renal replacement not indicated at this time; she is very adamant that she does not wish to have dialysis if it becomes necessary; will discuss again if it becomes medically necessary (3) Renal transplant recipient Plan: check tacrolimus level resume rejection medications: tacrolimus, 2 mg in am; 1.5 qhs prednisone 5 mg daily cellcept 500 mg BID monitor renal function (4) Anemia in CKD (chronic kidney disease) Plan: check iron profile as she was deficient last hospitalization will give a dose of Epogen (5) HTN (hypertension) Plan: continue medications as ordered (Noa Vazquez) Assessment and Plan patient was seen and examined. Agree with above assessment and plan. Monitor renal function. Cautious IVF. Continue immunosuppressive medications. (Jett Diana MD) Noa Vazquez Jun 17, 2016 12:29 Jett Diana MD Jun 17, 2016 16:29
[2016-06-17] MEDS: SODIUM CHLOR 0.45% 1000 ML INJ 1,000 ML IV SCH (13:10)
[2016-06-17] MEDS ORDERED: EPOETIN ALFA 20,000 UNITS/ML VIAL SQ ONE (13:45)
[2016-06-17] MEDS: CEFEPIME INJ 2,000 MG in SODIUM CHLORIDE 0.9% INJ 100 ML IV SCH (22:09)
[2016-06-17] MEDS: TACROLIMUS 0.5 MG CAP PO SCH (22:09)
--- NOTE | 2016-06-17 23:20 | EKG ---
Date Performed: 06/16/2016 Time Performed: 18:44:35 PTAGE: 76 years EKG: Sinus rhythm LEFT BUNDLE BRANCH BLOCK ABNORMAL ECG INTERPRETATION BASED ON A DEFAULT AGE OF 40 YEARS PREVIOUS TRACING : 03/20/2016 22.54 DOCTOR: Jc Arroyo Interpretating Date/Time 06/17/2016 23:16:30
[2016-06-18] VITALS (7 sets, daily range): BP systolic 133–172; BP diastolic 70–88; PULSE 74–81; RESP 16–19; TEMP 97.5–98.2; O2SAT 96–99
[2016-06-18] MEDS: MYCOPHENOLATE MOFETIL 500 MG TAB PO SCH ×2 (05:52→17:25)
[2016-06-18] MEDS: INSULIN ASPART SUPPLEMENTAL SCALE SQ SCH ×4 (06:31→20:39)
[2016-06-18 07:22] LABS: AUTOMATED NEUTROPHIL # 6.7 TH/MM3 (1.8-7.7); BASOPHIL # 0.1 TH/MM3 (0-0.2); BASOPHIL % 0.6 % (0.0-2.0); EOSINOPHIL # 0.3 TH/MM3 (0-0.4); EOSINOPHIL % 3.7 % (0.0-4.0); HEMATOCRIT 25.9 % (35.0-46.0); HEMO FLAGS DIFF FINAL; LYMPH % 11.6 % (9.0-44.0); MEAN CELL VOLUME 95.2 FL (80.0-100.0); MEAN CORPUSCULAR HEMOGLOBIN 30.9 PG (27.0-34.0); MEAN CORPUSCULAR HGB CONC 32.4 % (32.0-36.0); MONO % 8.6 % (0.0-8.0); NEUT % 75.5 % (16.0-70.0); PLATELET COUNT 169 TH/MM3 (150-450); RED BLOOD COUNT 2.72 MIL/MM3 (4.00-5.30); RED CELL DISTRIBUTION WIDTH 15.8 % (11.6-17.2); WHITE BLOOD COUNT 8.9 TH/MM3 (4.0-11.0)
[2016-06-18 07:31] LABS: ANION GAP 9 MEQ/L (5-15); BICARBONATE 18.9 MEQ/L (21.0-32.0); BLOOD UREA NITROGEN 37 MG/DL (7-18); CHLORIDE 107 MEQ/L (98-107); GLOMERULAR FILTRATION RATE 12 ML/MIN (>89); POTASSIUM 4.1 MEQ/L (3.5-5.1); SODIUM (NA) 135 MEQ/L (136-145); TRANSFERRIN IRON PROFILE 104 MG/DL (200-360)
--- NOTE | 2016-06-18 08:39 | HHI.PR ---
Subjective Remarks Follow up for sepsis with UTI, hydronephrosis. The patient is seen up ambulating at bedside today. She states she feels "pretty good" today. Denies fevers/chills. Denies dysuria, abdominal pain, or increased urinary frequency/ urgency. She is tolerating oral intake. She has no medical complaints. Objective Vitals Vital Signs Date Time Temp Pulse Resp B/P Pulse Ox O2 Delivery O2 Flow Rate FiO2 06/18/16 07:29 97.9 77 18 148/70 96 06/18/16 04:37 98.2 81 16 133/72 97 06/18/16 00:52 97.5 79 18 133/76 96 06/17/16 20:00 78 06/17/16 16:46 97.6 72 18 138/68 97 06/17/16 12:57 97.3 73 18 120/66 94 06/17/16 12:26 99.7 06/17/16 08:41 102.1 99 17 182/87 96 I/O 06/17/16 06/17/16 06/17/16 06/18/16 06/18/16 06/18/16 07:00 15:00 23:00 07:00 15:00 23:00 Intake Total 240 ml 790 ml Balance 240 ml 790 ml Intake Oral 240 ml 240 ml IV Total 550 ml # Voids 1 1 2 1 # Bowel Movements 1 Result Diagram: 06/18/16 0612 06/18/16 0612 Imaging Last Impressions Renal Ultrasound 06/17/16 0000 Signed Impressions: Service Date/Time: Friday, June 17, 2016 09:29 - CONCLUSION: 1. Hydronephrosis. This is a new finding from the prior study of 2012. 2. Mild increase in echogenicity of the kidney which is a nonspecific finding. Dexter Jane Jr., MD Chest X-Ray 06/16/16 1833 Signed Impressions: Service Date/Time: June 18:52 - CONCLUSION: No appreciable change. Mago Matos MD Head CT 06/16/16 0000 Signed Impressions: Service Date/Time: June 19:08 - CONCLUSION: Unremarkable study except for left eithmoid air cells mucoperiosteal thickening. Mago Matos MD Objective Remarks GENERAL: Well-nourished, well-developed pleasant elderly female patient in [place]. SKIN: Warm and dry. No rash. HEENT: Normocephalic. Atraumatic. Pupils equal and round. No scleral icterus. No injection or drainage. Mucous membranes pink and moist. NECK: Supple. Trachea midline. CARDIOVASCULAR: Regular rate and rhythm. S1, S2 noted. No murmur appreciated. RESPIRATORY: No accessory muscle use. Clear to auscultation. Breath sounds equal bilaterally. GASTROINTESTINAL: Abdomen soft, non-tender, nondistended. Normoactive bowel sounds x4. MUSCULOSKELETAL: No obvious deformities. Extremities without clubbing, cyanosis , or edema. No CVA tenderness bilaterally. NEUROLOGICAL: Awake and alert. No obvious cranial nerve deficits. Motor grossly within normal limits. Moves all extremities spontaneously. Normal speech. PSYCHIATRIC: Appropriate mood and affect; insight and judgment normal. Medications and IVs Current Medications Medications (Trade) Dose Ordered Sig/Paige Route Start Time Stop Time Status Last Admin (NS Flush) 2 ml UNSCH PRN FLUSH 06/17/16 00:30 (NS Flush) 2 ml BID FLUSH 06/17/16 09:00 06/17/16 09:33 (Narcan Inj) 0.4 mg UNSCH PRN IV 06/17/16 00:30 (D50w (Vial) Inj) 25 ml UNSCH PRN IV PUSH 06/17/16 00:30 (Glucagon Inj) 1 mg UNSCH PRN OTHER 06/17/16 00:30 (Neurontin) 100 mg TID PO 06/17/16 09:00 06/17/16 17:55 (Isordil) 10 mg DAILY PO 06/17/16 09:00 06/17/16 09:34 (Lopressor) 100 mg BID PO 06/17/16 09:00 06/17/16 22:10 (KCl) 20 meq DAILY PO 06/17/16 09:00 06/17/16 09:34 (Deltasone) 5 mg DAILY PO 06/17/16 09:00 06/17/16 09:34 (Zoloft) 50 mg DAILY PO 06/17/16 09:00 06/17/16 09:33 (Prograf) 0.5 mg HS PO 06/17/16 21:00 06/17/16 22:09 (Prograf) 2 mg DAILY PO 06/17/16 09:00 06/17/16 09:33 (Prograf) 1 mg HS PO 06/17/16 21:00 06/17/16 22:10 Lactobacillus Acidophilus 1 tab 1 tab DAILY PO 06/17/16 09:00 06/17/16 09:34 (Maxipime Inj/NS Inj) 100 ml @ 200 mls/hr Q24H IV 06/17/16 20:00 06/17/16 22:09 (Cellcept) 500 mg Q12H PO 06/17/16 06:00 06/18/16 05:52 Acetaminophen 650 mg 650 mg Q6H PRN PO 06/17/16 09:30 06/17/16 09:34 (1/2 NS 1000 ml Inj) 1,000 ml @ 50 mls/hr Q20H IV 06/17/16 13:00 06/17/16 13:10 Urinary Catheter: No Vascular Central Line Catheter: No A/P Problem List: (1) UTI (urinary tract infection) ICD Code: N39.0 Status: Acute (2) Sepsis ICD Code: A41.9 Status: Acute (3) CKD (chronic kidney disease) stage 5, GFR less than 15 ml/min ICD Code: N18.5 Status: Chronic (4) DM (diabetes mellitus) ICD Code: E11.9 Status: Chronic Assessment and Plan 76-year-old female with a history of diabetes, osteoarthritis, hypertension, dyslipidemia, and kidney transplant on immunosuppressant therapies presented with: Sepsis with Complicated UTI, Failed Outpatient: on immunosuppression with hx of renal transplant. WBC 11.3, febrile 102.1, HR 99. Lactic acid 0.9. Influenza negative. Blood cultures with NGTD. Urinalysis evidence of UTI. Urine culture pending. Continue IV Cefepime. Leukocytosis resolved. Giving gentle IVF. Monitor for improvement. Acute on Chronic kidney disease, stage 5, history of renal transplant: Upon arrival, Creatinine 3.9, baseline ~2.8. S/p 1 L IVF bolus given in the ED, giving additional gentle IVF per nephrology. Renal U/S as below. Consult nephrology, appreciate recommendations. Continue patient's home meds, Prograf. Avoid further nephrotoxins. Hydronephrosis: Renal U/S shows significant hydronephrosis, new finding compared to 2013 U/S. Consult urology. Normocytic Anemia: likely ACD secondary to CKD. Given Epogen by nephrology. Iron studies consistent with chronic anemia. Monitor CBC. Diabetes, chronic: Monitor Accu-Cheks AC/hS and cover with SSI. All other medical conditions stable, continue home meds as appropriate. DVT prophylaxis: SCDs Discussed with Dr. South. Vicky Brown PA-C Jun 18, 2016 8:39 am Vicky Brown PA-C Jun 18, 2016 8:39 am
[2016-06-18] MEDS: SODIUM CHLOR 0.45% 1000 ML INJ 1,000 ML IV SCH (09:00)
[2016-06-18] MEDS: GABAPENTIN 100 MG CAP PO SCH ×3 (09:04→17:25)
[2016-06-18] MEDS: SODIUM CHLORIDE 0.9% FLUSH 5 ML FLUSH FLUSH SCH ×2 (09:04→20:39)
[2016-06-18] MEDS: predniSONE 5 MG TAB PO SCH (09:04)
[2016-06-18] MEDS: METOPROLOL TARTRATE 100 MG TAB PO SCH ×2 (09:04→20:39)
[2016-06-18] MEDS: ISOSORBIDE DINITRATE 10 MG TAB PO SCH (09:04)
[2016-06-18] MEDS: POTASSIUM CHLORIDE 20 MEQ CONTROLLED RELEASE TAB PO SCH (09:04)
[2016-06-18] MEDS: LACTOBACILLUS ACIDOPHILUS TAB PO SCH (09:04)
[2016-06-18] MEDS: SERTRALINE HCL 50 MG TAB PO SCH (09:04)
[2016-06-18] MEDS: TACROLIMUS 1 MG CAP PO SCH ×2 (11:45→20:39)
--- NOTE | 2016-06-18 12:18 | PD.CONS ---
HPI Service Urology Consult Requested By Reason for Consult Hydronephrosis of transplant kidney Primary Care Physician Non-Staff Diagnosis: (1) UTI (urinary tract infection) ICD Code: N39.0 (2) Sepsis ICD Code: A41.9 (3) CKD (chronic kidney disease) stage 5, GFR less than 15 ml/min ICD Code: N18.5 (4) DM (diabetes mellitus) ICD Code: E11.9 History of Present Illness 76-year-old female with history chronic kidney disease who is status post a kidney transplant back in 2004. Patient recently admitted with symptoms of fatigue, headaches and chills. Patient was recently admitted back in March 2016 for UTI/sepsis with Klebsiella growing out in the urine. During present admission a renal ultrasound was ordered that demonstrated hydronephrosis as well as cystic lesions to the transplant kidney does prompting a urology consult. Upon further questioning the patient reports that she has been making excellent urine and has not noted any recent change change in her urine volume production. Serum creatinine levels have remained relatively stable in the 2-3 range. Patient denies hematuria or dysuria. I reviewed the actual ultrasound images and agree with the radiologist that there is some dilation of the collecting system in addition to cystic lesions. Review of Systems Constitutional: COMPLAINS OF: Fatigue, Chills, DENIES: Fever Gastrointestinal: DENIES: Abdominal pain Genitourinary: DENIES: Hematuria, Dysuria Musculoskeletal: DENIES: Back pain Neurologic: COMPLAINS OF: Headache Except as stated in HPI: all other systems reviewed are Neg Past Family Social History Past Medical History Diabetes mellitus Chronic kidney disease Hypertension Osteoarthritis Past Surgical History Renal transplant 2004 Reported Medications Refer to EMR Allergies: Coded Allergies: Cipro (Verified Allergy, Severe, Itching, 06/16/16) Active Ordered Medications Refer to EMR Family History Reviewed and noncontributory Social History Former smoker who quit in 2009 Occasional alcohol use Physical Exam Vital Signs Vital Signs Date Time Temp Pulse Resp B/P Pulse Ox O2 Delivery O2 Flow Rate FiO2 06/18/16 11:56 77 138/74 06/18/16 07:29 97.9 77 18 148/70 96 06/18/16 04:37 98.2 81 16 133/72 97 06/18/16 00:52 97.5 79 18 133/76 96 06/17/16 20:00 78 06/17/16 16:46 97.6 72 18 138/68 97 06/17/16 12:57 97.3 73 18 120/66 94 06/17/16 12:26 99.7 Physical Exam GENERAL: This is a well-nourished, well-developed patient, in no apparent distress. SKIN: No rashes, ecchymoses or lesions. Cool and dry. HEAD: Atraumatic. Normocephalic. No temporal or scalp tenderness. EYES: Pupils equal round and reactive. Extraocular motions intact. No scleral icterus. No injection or drainage. ENT: Nose without bleeding, purulent drainage or septal hematoma. Throat without erythema, tonsillar hypertrophy or exudate. Uvula midline. Airway patent. NECK: Trachea midline. No JVD or lymphadenopathy. Supple, nontender, no meningeal signs. GASTROINTESTINAL: Abdomen soft, non-tender, nondistended. No hepato-splenomegaly , or palpable masses. No guarding. GENITOURINARY: Bladder not distended MUSCULOSKELETAL: Extremities without clubbing, cyanosis, or edema. No joint tenderness, effusion, or edema noted. No calf tenderness. Negative Homans sign bilaterally. NEUROLOGICAL: Awake and alert. Cranial nerves II through XII intact. Motor and sensory grossly within normal limits. Five out of 5 muscle strength in all muscle groups. Normal speech. Laboratory Laboratory Tests Test 06/17/16 06/18/16 13:27 06:12 Tacrolimus (Prograf) Level 5.0 White Blood Count 8.9 Red Blood Count 2.72 Hemoglobin 8.4 Hematocrit 25.9 Mean Corpuscular Volume 95.2 Mean Corpuscular Hemoglobin 30.9 Mean Corpuscular Hemoglobin 32.4 Concent Red Cell Distribution Width 15.8 Platelet Count 169 Mean Platelet Volume 8.5 Neutrophils (%) (Auto) 75.5 Lymphocytes (%) (Auto) 11.6 Monocytes (%) (Auto) 8.6 Eosinophils (%) (Auto) 3.7 Basophils (%) (Auto) 0.6 Neutrophils # (Auto) 6.7 Lymphocytes # (Auto) 1.0 Monocytes # (Auto) 0.8 Eosinophils # (Auto) 0.3 Basophils # (Auto) 0.1 CBC Comment DIFF FINAL Differential Comment Sodium Level 135 Potassium Level 4.1 Chloride Level 107 Carbon Dioxide Level 18.9 Anion Gap 9 Blood Urea Nitrogen 37 Creatinine 3.65 Estimat Glomerular Filtration 12 Rate Random Glucose 85 Calcium Level 8.0 Iron Level 22 Total Iron Binding Capacity 146 Percent Iron Saturation 15.1 Date/Time Procedure Status Source Growth 06/16/16 23:00 Aerobic Blood Culture - Preliminary Resulted Blood Peripheral NO GROWTH IN 2 DAYS 06/16/16 23:00 Anaerobic Blood Culture - Preliminary Resulted Blood Peripheral NO GROWTH IN 2 DAYS 06/16/16 21:45 Urine Culture - Preliminary Resulted Urine Catheterized Urine RESULTS PENDING 06/16/16 21:45 Influenza Types A,B Antigen (SHARON) - Final Complete Nasal Washing NEGATIVE FOR FLU A AND B ANTIGEN.... Result Diagram: 06/18/1661106/18/16611 Imaging Renal ultrasound with findings as outlined above Assessment and Plan Assessment and Plan Urologic impression: Dilation of the renal transplant collecting system which may be physiologic in nature Recommendation: #1 renal scan with Lasix washout #2 may be performed as an outpatient if patient discharged home over the weekend #3 if there is no evidence of obstruction on the renal scan then no further urologic workup is indicated Alhaji Kilpatrick MD Jun 18, 2016 12:18
[2016-06-18] MEDS: ACETAMINOPHEN 325 MG TAB PO PRN (15:25)
--- NOTE | 2016-06-18 18:47 | HHI.NPPN ---
Subjective History of Present Illness 76 Year old female with Kidney Transplant 2005 with CKD/UTI Review of Systems General Constitutional: Fatigue Objective Data Data 06/17/16 06/18/16 19:00 07:00 Intake Total 1030 ml Balance 1030 ml Intake Oral 480 ml IV Total 550 ml # Voids 2 2 Vital Signs Date Time Temp Pulse Resp B/P Pulse Ox O2 Delivery O2 Flow Rate FiO2 06/18/16 17:42 18 06/18/16 15:39 74 170/79 06/18/16 11:56 77 138/74 06/18/16 07:29 97.9 77 18 148/70 96 06/18/16 04:37 98.2 81 16 133/72 97 06/18/16 00:52 97.5 79 18 133/76 96 06/17/16 20:00 78 -: 06/18/16 0612 06/18/16 0612 Physical Exam General Appearance: Well Developed, Well Nourished Neck Neck Exam: Neck Supple Pulmonary Resp Exam: Clear Bilaterally Cardiology CV Exam: Regular, Normal Sinus Rhythm Gastrointestinal/Abdomen GI Exam: Soft, Non-Tender Integumentary Skin Exam: Clear Neurologic Neuro Exam: Alert Assessment/Plan Problem List: (1) Acute on chronic kidney failure Plan: She has underlying CKD 4, in March creatinine measured 2.4 at discharge, GFR was 19 creatinine 3.9 on arrival, improved and stayed at 3.65 US showed possible hydronephrosis, Urology following Renal scan with Lasix (2) UTI (urinary tract infection) Plan: treated with Cefepime blood cx negative to date (3) Renal transplant recipient Plan: check tacrolimus level resume rejection medications: tacrolimus, 2 mg in am; 1.5 qhs prednisone 5 mg daily cellcept 500 mg BID monitor renal function (4) Anemia in CKD (chronic kidney disease) Plan: check iron profile as she was deficient last hospitalization will give a dose of Epogen (5) HTN (hypertension) Plan: continue medications as ordered Kayode Moreira MD Jun 18, 2016 18:47
[2016-06-18] MEDS: CEFEPIME INJ 2,000 MG in SODIUM CHLORIDE 0.9% INJ 100 ML IV SCH (20:37)
[2016-06-18] MEDS: TACROLIMUS 0.5 MG CAP PO SCH (20:39)
[2016-06-19] VITALS: BP 173/85; PULSE 69; RESP 18; TEMP 98.1; O2SAT 97
[2016-06-19 03:32] VITALS: BP 158/77; PULSE 67; RESP 18; TEMP 97.9; O2SAT 96
[2016-06-19 04:43] LABS: AUTOMATED NEUTROPHIL # 5.1 TH/MM3 (1.8-7.7); BASOPHIL % 0.5 % (0.0-2.0); EOSINOPHIL # 0.3 TH/MM3 (0-0.4); EOSINOPHIL % 3.5 % (0.0-4.0); HEMO FLAGS DIFF FINAL; LYMPHOCYTE # 1.5 TH/MM3 (1.0-4.8); MEAN CELL VOLUME 95.7 FL (80.0-100.0); MEAN CORPUSCULAR HEMOGLOBIN 31.1 PG (27.0-34.0); MEAN CORPUSCULAR HGB CONC 32.5 % (32.0-36.0); MONO % 9.9 % (0.0-8.0); NEUT % 67.1 % (16.0-70.0); PLATELET COUNT 175 TH/MM3 (150-450); RED BLOOD COUNT 2.82 MIL/MM3 (4.00-5.30); RED CELL DISTRIBUTION WIDTH 15.7 % (11.6-17.2); WHITE BLOOD COUNT 7.6 TH/MM3 (4.0-11.0)
[2016-06-19 05:11] LABS: BICARBONATE 18.4 MEQ/L (21.0-32.0); POTASSIUM 4.2 MEQ/L (3.5-5.1)
[2016-06-19] MEDS: MYCOPHENOLATE MOFETIL 500 MG TAB PO SCH ×2 (06:29→17:35)
[2016-06-19] MEDS: INSULIN ASPART SUPPLEMENTAL SCALE SQ SCH ×4 (06:30→21:00)
[2016-06-19] MEDS: SODIUM CHLOR 0.45% 1000 ML INJ 1,000 ML IV SCH (06:30)
[2016-06-19 08:00] VITALS: BP 178/100; PULSE 72; RESP 18; TEMP 97.2; O2SAT 98
[2016-06-19] MEDS: SERTRALINE HCL 50 MG TAB PO SCH (08:40)
[2016-06-19] MEDS: METOPROLOL TARTRATE 100 MG TAB PO SCH ×2 (08:40→21:26)
[2016-06-19] MEDS: POTASSIUM CHLORIDE 20 MEQ CONTROLLED RELEASE TAB PO SCH (08:40)
[2016-06-19] MEDS: LACTOBACILLUS ACIDOPHILUS TAB PO SCH (08:40)
[2016-06-19] MEDS: predniSONE 5 MG TAB PO SCH (08:40)
[2016-06-19] MEDS: GABAPENTIN 100 MG CAP PO SCH ×3 (08:40→17:35)
[2016-06-19] MEDS: SODIUM CHLORIDE 0.9% FLUSH 5 ML FLUSH FLUSH SCH ×2 (08:40→21:00)
[2016-06-19] MEDS: ISOSORBIDE DINITRATE 10 MG TAB PO SCH (08:49)
[2016-06-19] MEDS: TACROLIMUS 1 MG CAP PO SCH ×2 (08:49→21:26)
[2016-06-19 12:00] VITALS: BP 165/83; PULSE 72; RESP 18; TEMP 97.4; O2SAT 99
[2016-06-19] MEDS ORDERED: TEMAZEPAM 7.5 MG CAP PO PRN (13:30)
--- NOTE | 2016-06-19 13:33 | HHI.PR ---
Subjective Remarks Follow-up for urosepsis, insomnia. SO at bedside. The patient has no acute complaints today. She denies any abdomen, suprapubic, back pain. She denies any dysuria or burning with urination. She reports normal urine output. She denies any fevers. She didn't sleep well last night, has taken Ambien home for sleep in the past. Objective Vitals Vital Signs Date Time Temp Pulse Resp B/P Pulse Ox O2 Delivery O2 Flow Rate FiO2 06/19/16 08:00 97.2 72 18 178/100 98 06/19/16 03:32 97.9 67 18 158/77 96 06/19/16 00:00 98.1 69 18 173/85 97 06/18/16 20:00 75 06/18/16 19:29 98.1 76 19 172/88 99 06/18/16 17:42 18 06/18/16 15:39 74 170/79 I/O 06/18/16 06/18/16 06/18/16 06/19/16 06/19/16 06/19/16 07:00 15:00 23:00 07:00 15:00 23:00 Intake Total 790 ml 770 ml Balance 790 ml 770 ml Intake Oral 240 ml 240 ml IV Total 550 ml 530 ml # Voids 1 Result Diagram: 06/19/16 0432 06/19/16 0432 Imaging Last Impressions Renal Ultrasound 06/17/16 0000 Signed Impressions: Service Date/Time: Friday, June 17, 2016 09:29 - CONCLUSION: 1. Hydronephrosis. This is a new finding from the prior study of 2012. 2. Mild increase in echogenicity of the kidney which is a nonspecific finding. Dexter Jane Jr., MD Chest X-Ray 06/16/16 1833 Signed Impressions: Service Date/Time: June 18:52 - CONCLUSION: No appreciable change. Mago Matos MD Head CT 06/16/16 0000 Signed Impressions: Service Date/Time: June 19:08 - CONCLUSION: Unremarkable study except for left eithmoid air cells mucoperiosteal thickening. Mago Matos MD Objective Remarks GENERAL: Well-developed well-nourished. In no acute distress. SKIN: Warm and dry. No lesions noted. HEENT: Normocephalic. Pupils equal and round. Mucous membranes pink and moist. CARDIOVASCULAR: Regular rate and rhythm. No murmur appreciated. RESPIRATORY: No accessory muscle use. Clear to auscultation. Breath sounds equal bilaterally. GASTROINTESTINAL: Abdomen soft, non-tender, nondistended. Bowel sounds x4. MUSCULOSKELETAL: No obvious deformities. No clubbing or cyanosis. No edema. NEUROLOGICAL: Awake and alert. No focal neurological deficits. Moves upper and lower extremities spontaneously. Normal speech. PSYCHIATRIC: Appropriate mood and affect; insight and judgment normal. A/P Problem List: (1) UTI (urinary tract infection) ICD Code: N39.0 Status: Acute (2) Sepsis ICD Code: A41.9 Status: Acute (3) CKD (chronic kidney disease) stage 5, GFR less than 15 ml/min ICD Code: N18.5 Status: Chronic (4) DM (diabetes mellitus) ICD Code: E11.9 Status: Chronic Assessment and Plan 76-year-old female with a history of diabetes, osteoarthritis, hypertension, dyslipidemia, and kidney transplant on immunosuppressant therapies presented with: Sepsis with Complicated UTI, Failed Outpatient: on immunosuppression with hx of renal transplant. WBC 11.3, febrile 102.1, HR 99. Lactic acid 0.9. Influenza negative. Blood cultures with NGTD. Urinalysis evidence of UTI. Urine culture is growing gram-negative rods. Continue IV Cefepime. Leukocytosis resolved. Giving gentle IVF. Consult ID. Acute on Chronic kidney disease, stage 5, history of renal transplant: Upon arrival, Creatinine 3.9, baseline ~2.8. Giving gentle IVF per nephrology. Renal U/S as below. Consulted nephrology, appreciate recommendations. Continue patient 's home meds, Prograf. Avoid further nephrotoxins. Creatinine is slowly improving. Hydronephrosis: Renal U/S shows significant hydronephrosis, new finding compared to 2013 U/S. Consulted urology, ordered renogram with Lasix. Normocytic Anemia: likely ACD secondary to CKD. Given Epogen by nephrology. Iron studies consistent with iron deficiency, start on supplementation. Monitor CBC. Diabetes, chronic: Monitor Accu-Cheks AC/hS and cover with SSI. Insomnia: Restoril as needed. All other medical conditions stable, continue home meds as appropriate. DVT prophylaxis: SCDs Written by Jeffy Cruz, acting as scribe for Dr. South on 06/19/16 at 13:30. Jeffy Cruz Jun 19, 2016 13:33
[2016-06-19] MEDS: ACETAMINOPHEN 325 MG TAB PO PRN (15:29)
[2016-06-19 16:00] VITALS: BP 169/94; PULSE 71; RESP 18; TEMP 97.7; O2SAT 99
--- NOTE | 2016-06-19 17:00 | HHI.NPPN ---
Subjective History of Present Illness 76 Year old female with Kidney Transplant 2005 with CKD/UTI Review of Systems General Constitutional: Fatigue Objective Data Data 06/18/16 06/19/16 19:00 07:00 Intake Total 770 ml Balance 770 ml Intake Oral 240 ml IV Total 530 ml Vital Signs Date Time Temp Pulse Resp B/P Pulse Ox O2 Delivery O2 Flow Rate FiO2 06/19/16 16:00 97.7 71 18 169/94 99 06/19/16 12:00 97.4 72 18 165/83 99 06/19/16 08:00 97.2 72 18 178/100 98 06/19/16 03:32 97.9 67 18 158/77 96 06/19/16 00:00 98.1 69 18 173/85 97 06/18/16 20:00 75 06/18/16 19:29 98.1 76 19 172/88 99 06/18/16 17:42 18 -: 06/19/16 0432 06/19/16 0432 Physical Exam General Appearance: Well Developed, Well Nourished Neck Neck Exam: Neck Supple Pulmonary Resp Exam: Clear Bilaterally Cardiology CV Exam: Regular, Normal Sinus Rhythm Gastrointestinal/Abdomen GI Exam: Soft, Non-Tender Integumentary Skin Exam: Clear Neurologic Neuro Exam: Alert Assessment/Plan Problem List: (1) Acute on chronic kidney failure Plan: She has underlying CKD 4, in March creatinine measured 2.4 at discharge, GFR was 19 creatinine 3.9 on arrival, improved at 3.3 US showed possible hydronephrosis, Urology following Renal scan with Ashleigh Diana to follow (2) UTI (urinary tract infection) Plan: treated with Cefepime blood cx negative to date (3) Renal transplant recipient Plan: check tacrolimus level resume rejection medications: tacrolimus, 2 mg in am; 1.5 qhs prednisone 5 mg daily cellcept 500 mg BID monitor renal function (4) Anemia in CKD (chronic kidney disease) Plan: check iron profile as she was deficient last hospitalization will give a dose of Epogen (5) HTN (hypertension) Plan: continue medications as ordered Kayode Moreira MD Jun 19, 2016 17:00
[2016-06-19 20:00] VITALS: BP 182/97; PULSE 73; PULSE 75; RESP 16; TEMP 97.4; O2SAT 99
[2016-06-19] MEDS: CEFEPIME INJ 2,000 MG in SODIUM CHLORIDE 0.9% INJ 100 ML IV SCH (21:35)
[2016-06-19] MEDS: TACROLIMUS 0.5 MG CAP PO SCH (22:04)
--- NOTE | 2016-06-19 23:14 | PD.ID.CON ---
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) presented with fever, chills , ARF/CKD Afebrile, borderline leukocytosis on presentation Deneis any abdominal pain or disuria Pt has abnormal UA and her urine clx are positive for a GNB and staph spp She is started on cefepime Renal ultrasound showed new hydronephrosis in her allograft She was seen by urologist who suggested that dilation of the renal transplant collecting system which may be physiologic in nature and recommended renal scan with Lasix washout; incase it shows no evidence of obstruction then no further urologic workup is indicated Review of Systems Except as stated in HPI: all other systems reviewed are Neg Past Family Social History Allergies: Coded Allergies: Cipro (Verified Allergy, Severe, Itching, 06/16/16) Past Medical History HTN, CKD Stage V and h/o Renal Transplant on Immunosuppressant Therapy Past Surgical History Renal Transplant Active Ordered Medications Medications where reviewed in EMR Antibiotics Include: cefepime Family History Non-Contributory. Social History No Tobacco. No ETOH. No Illicit Drugs. Physical Exam Vital Signs Vital Signs Date Time Temp Pulse Resp B/P Pulse Ox O2 Delivery O2 Flow Rate FiO2 06/19/16 20:00 97.4 75 16 182/97 99 06/19/16 16:00 97.7 71 18 169/94 99 06/19/16 12:00 97.4 72 18 165/83 99 06/19/16 08:00 97.2 72 18 178/100 98 06/19/16 03:32 97.9 67 18 158/77 96 06/19/16 00:00 98.1 69 18 173/85 97 Physical Exam CONSTITUTIONAL/GENERAL: This is an adequately nourished patient, in no apparent distress. TUBES/LINES/DRAINS: SKIN: No jaundice, rashes, or lesions. Ecchymoses on upper extremities. No wounds seen anteriorly. Skin temperature appropriate. Not diaphoretic. HEAD: Atraumatic. Normocephalic. EYES: Pupils equal and round and reactive. Extraocular motions intact. No scleral icterus. No injection or drainage. Fundi not examined. ENT: Hearing grossly normal. Nose without bleeding or purulent drainage. Throat without visible erythema, exudates, masses, or lesions. NECK: Trachea midline. Supple, nontender. CARDIOVASCULAR: Regular rate and rhythm without murmurs, gallops, or rubs. No JVD. Peripheral pulses symmetric. RESPIRATORY/CHEST: Symmetric, unlabored respirations. Clear to auscultation. Breath sounds equal bilaterally. No wheezes, rales, or rhonchi. GASTROINTESTINAL: Abdomen soft, non-tender, nondistended. No hepato-splenomegaly , or palpable masses. No guarding. Bowel sounds present. GENITOURINARY: Without palpable bladder distension. Urine allograft in R iliac fossa, not tender palpation MUSCULOSKELETAL: Extremities without clubbing, cyanosis, or edema. No joint tenderness or effusion noted. No calf tenderness. No mottling or clubbing. LYMPHATICS: No palpable cervical or supraclavicular adenopathy. NEUROLOGICAL: Awake and alert. Motor and sensory grossly within normal limits. Follows commands. Normal speech Moves all extremities. PSYCHIATRIC: No obvious anxiety/depression. no apparent hallucinations or other psychotic thought process. Laboratory Laboratory Tests Test 06/19/16 04:32 White Blood Count 7.6 Red Blood Count 2.82 Hemoglobin 8.8 Hematocrit 27.0 Mean Corpuscular Volume 95.7 Mean Corpuscular Hemoglobin 31.1 Mean Corpuscular Hemoglobin 32.5 Concent Red Cell Distribution Width 15.7 Platelet Count 175 Mean Platelet Volume 8.3 Neutrophils (%) (Auto) 67.1 Lymphocytes (%) (Auto) 19.0 Monocytes (%) (Auto) 9.9 Eosinophils (%) (Auto) 3.5 Basophils (%) (Auto) 0.5 Neutrophils # (Auto) 5.1 Lymphocytes # (Auto) 1.5 Monocytes # (Auto) 0.8 Eosinophils # (Auto) 0.3 Basophils # (Auto) 0.0 CBC Comment DIFF FINAL Differential Comment Sodium Level 135 Potassium Level 4.2 Chloride Level 103 Carbon Dioxide Level 18.4 Anion Gap 14 Blood Urea Nitrogen 35 Creatinine 3.36 Estimat Glomerular Filtration 13 Rate Random Glucose 94 Calcium Level 8.5 Date/Time Procedure Status Source Growth 06/16/16 23:00 Aerobic Blood Culture - Preliminary Resulted Blood Peripheral NO GROWTH IN 3 DAYS 06/16/16 23:00 Anaerobic Blood Culture - Preliminary Resulted Blood Peripheral NO GROWTH IN 3 DAYS 06/16/16 21:45 Urine Culture - Preliminary Resulted Urine Catheterized Urine Gram Negative Tad Staphylococcus Species 06/16/16 21:45 Influenza Types A,B Antigen (SHARON) - Final Complete Nasal Washing NEGATIVE FOR FLU A AND B ANTIGEN.... Result Diagram: 06/19/16 0432 06/19/16 0432 Course Last Impressions Renal Ultrasound 06/17/16 0000 Signed Impressions: Service Date/Time: Friday, June 17, 2016 09:29 - CONCLUSION: 1. Hydronephrosis. This is a new finding from the prior study of 2012. 2. Mild increase in echogenicity of the kidney which is a nonspecific finding. Dexter Jane Jr., MD Chest X-Ray 06/16/16 1833 Signed Impressions: Service Date/Time: June 18:52 - CONCLUSION: No appreciable change. Mago Matos MD Head CT 06/16/16 0000 Signed Impressions: Service Date/Time: June 19:08 - CONCLUSION: Unremarkable study except for left eithmoid air cells mucoperiosteal thickening. Mago Matos MD Assessment and Plan Assessment and Plan UTI in transplanted kidney - GNB staph ? skin contaminannts Immunosuppresed - cont cefepime - repeat UA, C+S Esthela Ramirez MD Jun 19, 2016 23:14
[2016-06-20] VITALS (9 sets, daily range): BP systolic 133–178; BP diastolic 76–98; PULSE 66–100; RESP 16–20; TEMP 96.2–98; O2SAT 94–99
[2016-06-20] MEDS: SODIUM CHLOR 0.45% 1000 ML INJ 1,000 ML IV SCH (01:00)
[2016-06-20 02:35] LABS: BLOOD, URINE NEG (NEG); COMMENT (UR) CULT NOT INDICATED; CULTURE IF INDICATED CULT NOT INDICATED; GLUCOSE,URINE NEG (NEG); KETONE, URINE NEG (NEG); MUCUS URINE FEW /lpf (OCC); NITRITE,URINE NEG (NEG); PH, URINE 5.5 (5.0-8.5); SQUAMOUS EPITHELIAL CELL URINE <1 /hpf (0-5); URINE COLOR LIGHT-YELLOW (YELLW/STRAW)
[2016-06-20] MEDS: MYCOPHENOLATE MOFETIL 500 MG TAB PO SCH ×2 (06:02→17:31)
[2016-06-20] MEDS: INSULIN ASPART SUPPLEMENTAL SCALE SQ SCH ×4 (06:13→21:00)
[2016-06-20] MEDS: SODIUM CHLORIDE 0.9% FLUSH 5 ML FLUSH FLUSH SCH ×2 (09:00→21:50)
[2016-06-20] MEDS: FERROUS SULFATE 325 MG (65 MG ELEMENTAL IRON) TAB PO SCH (09:00)
[2016-06-20] MEDS: SERTRALINE HCL 50 MG TAB PO SCH (09:00)
[2016-06-20] MEDS: POTASSIUM CHLORIDE 20 MEQ CONTROLLED RELEASE TAB PO SCH (09:01)
[2016-06-20] MEDS: LACTOBACILLUS ACIDOPHILUS TAB PO SCH (09:01)
[2016-06-20] MEDS: ISOSORBIDE DINITRATE 10 MG TAB PO SCH (09:01)
[2016-06-20] MEDS: GABAPENTIN 100 MG CAP PO SCH ×3 (09:01→17:31)
[2016-06-20] MEDS: METOPROLOL TARTRATE 100 MG TAB PO SCH ×2 (09:01→21:52)
[2016-06-20] MEDS: predniSONE 5 MG TAB PO SCH (09:02)
[2016-06-20] MEDS: TACROLIMUS 1 MG CAP PO SCH ×2 (09:02→21:51)
[2016-06-20] MEDS ORDERED: SODIUM BICARBONATE 8.4% INJ 50 MEQ in SODIUM CHLOR 0.45% 1000 ML INJ 1,000 ML IV SCH (10:00)
[2016-06-20] MEDS ORDERED: FUROSEMIDE 40 MG/4 ML VIAL ONE (11:43)
--- NOTE | 2016-06-20 12:15 | HHI.NPPN ---
Subjective History of Present Illness 76 Year old female with Kidney Transplant 2005 with CKD/UTI Interval History Sitting up, looks better. Eating well. (Noa Vazquez) Review of Systems General Constitutional: Fatigue (Noa Vazquez) Objective Data Data 06/19/16 06/20/16 19:00 07:00 Intake Total 1170 ml 540 ml Balance 1170 ml 540 ml Intake Oral 1170 ml 540 ml # Voids 4 3 # Bowel Movements 2 1 Vital Signs Date Time Temp Pulse Resp B/P Pulse Ox O2 Delivery O2 Flow Rate FiO2 06/20/16 09:41 66 06/20/16 08:00 97.3 68 16 171/88 97 06/20/16 04:00 97.8 70 20 172/90 99 06/20/16 00:00 97.5 71 20 175/92 94 06/19/16 20:00 97.4 75 16 182/97 99 06/19/16 20:00 73 06/19/16 16:00 97.7 71 18 169/94 99 (Noa Vazquez) -: 06/19/16 0432 06/19/16 0432 Physical Exam General Appearance: Well Developed, Well Nourished, No Acute Distress, Comfortable ( Noa Vazquez) Neck Neck Exam: Neck Supple (Noa Vazquez) Pulmonary Resp Exam: Clear Bilaterally, Breath Sounds Equal (Noa Vazquez) Cardiology CV Exam: Regular, Normal Sinus Rhythm (Noa Vazquez) Gastrointestinal/Abdomen GI Exam: Soft, Non-Tender, Bowel Sounds Present (Noa Vazquez) Musculoskeletal MS Exam: Joints Intact, Normal Tone (Noa Vazquez) Integumentary Skin Exam: Clear, Warm, Dry (Noa Vazquez) Extremeties Extremities Exam: Pedal Pulses Palpable (Noa Vazquez) Neurologic Neuro Exam: Alert (Noa Vazquez) Assessment/Plan Problem List: (1) Acute on chronic kidney failure Plan: She has underlying CKD 4, in March creatinine measured 2.4 at discharge, GFR was 19 renal function improved slightly since admission repeat labs ordered US showed possible hydronephrosis, Urology had planned on Renal scan with Lasix ; it may be done outpatient she may have progressively worsening renal function, her transplant is nearly 15 years old. dialysis is not needed at this time, although she does not wish to start dialysis at any point follows with nephrology in [place] renal panel in am stop IVF, give oral bicarb labs in am if still admitted she can be discharged if all consultants are in agreement (2) UTI (urinary tract infection) Plan: treated with Cefepime blood cx negative to date (3) Renal transplant recipient Plan: tacrolimus level acceptable resume rejection medications: tacrolimus, 2 mg in am; 1.5 qhs prednisone 5 mg daily cellcept 500 mg BID monitor renal function (4) Anemia in CKD (chronic kidney disease) Plan: given epogen on oral iron (5) HTN (hypertension) Plan: continue medications as ordered (Noa Vazquez) Plan patient was seen and examined. Agree with above assessment and plan. (Jett Diana MD) Noa Vazquez Jun 20, 2016 12:15 Jett Diana MD Jun 20, 2016 16:10
--- NOTE | 2016-06-20 13:09 | HHI.PR ---
Subjective Remarks Follow-up for UTI, ALEXIA, leg laceration. The patient is doing well today. No fever or chills. She has a left lower extremity laceration that was repaired with sutures in ED 2 weeks ago, and are due to be removed. She also says that she is due for her weekly labs at the infusion center tomorrow. She is asking about going home. Objective Vitals Vital Signs Date Time Temp Pulse Resp B/P Pulse Ox O2 Delivery O2 Flow Rate FiO2 06/20/16 12:00 96.2 74 16 150/76 99 06/20/16 09:41 66 06/20/16 08:00 97.3 68 16 171/88 97 06/20/16 04:00 97.8 70 20 172/90 99 06/20/16 00:00 97.5 71 20 175/92 94 06/19/16 20:00 97.4 75 16 182/97 99 06/19/16 20:00 73 06/19/16 16:00 97.7 71 18 169/94 99 I/O 06/19/16 06/19/16 06/19/16 06/20/16 06/20/16 06/20/16 07:00 15:00 23:00 07:00 15:00 23:00 Intake Total 770 ml 1170 ml 480 ml 60 ml Balance 770 ml 1170 ml 480 ml 60 ml Intake Oral 240 ml 1170 ml 480 ml 60 ml IV Total 530 ml # Voids 4 2 1 # Bowel Movements 2 0 1 Result Diagram: 06/19/16 0432 06/19/16 0432 Objective Remarks GENERAL: Well-developed well-nourished. In no acute distress. SKIN: Warm and dry. Left arias with ~4cm healing laceration with scabbing; sutures and Steri-Strips in place. HEENT: Normocephalic. Pupils equal and round. Mucous membranes pink and moist. CARDIOVASCULAR: Regular rate and rhythm. No murmur appreciated. RESPIRATORY: No accessory muscle use. Clear to auscultation. Breath sounds equal bilaterally. GASTROINTESTINAL: Abdomen soft, non-tender, nondistended. Bowel sounds x4. MUSCULOSKELETAL: No obvious deformities. No clubbing or cyanosis. No edema. NEUROLOGICAL: Awake and alert. No focal neurological deficits. Moves upper and lower extremities spontaneously. Normal speech. PSYCHIATRIC: Appropriate mood and affect; insight and judgment normal. A/P Problem List: (1) UTI (urinary tract infection) ICD Code: N39.0 Status: Acute (2) Sepsis ICD Code: A41.9 Status: Acute (3) CKD (chronic kidney disease) stage 5, GFR less than 15 ml/min ICD Code: N18.5 Status: Chronic (4) DM (diabetes mellitus) ICD Code: E11.9 Status: Chronic Assessment and Plan 76-year-old female with a history of diabetes, osteoarthritis, hypertension, dyslipidemia, and kidney transplant on immunosuppressant therapies presented with: Sepsis with Complicated UTI, Failed Outpatient: on immunosuppression with hx of renal transplant. WBC 11.3, febrile 102.1, HR 99. Lactic acid 0.9. Influenza negative. Blood cultures with NGTD. Urinalysis evidence of UTI. Urine culture is growing Achromobacter and enterococcus. Received IV Cefepime, change to oral Bactrim based on sensitivities. Leukocytosis resolved. ID on board, follow -up recommendations. Acute on Chronic kidney disease, stage 5, history of renal transplant: Upon arrival, Creatinine 3.9, baseline ~2.8. Giving gentle IVF per nephrology. Renal U/S as below. Consulted nephrology, appreciate recommendations. Tacrolimus within normal limits. Continue patient's home meds, Prograf. Avoid further nephrotoxins. Creatinine is slowly improving. Hydronephrosis: Renal U/S shows significant hydronephrosis, new finding compared to 2013 U/S. Consulted urology, renogram with Lasix pending. Normocytic Anemia: likely ACD secondary to CKD. Given Epogen by nephrology. Iron studies consistent with iron deficiency, started on supplementation. Monitor CBC. Diabetes, chronic: Monitor Accu-Cheks AC/hS and cover with SSI. Insomnia: Restoril as needed. LLE laceration: S/P sutures and Steri-Strips 2 weeks ago at an outside ED. Personally removed 6 sutures today. Continue local wound care and clean dressing. Follow up in ED for wound recheck. All other medical conditions stable, continue home meds as appropriate. DVT prophylaxis: SCDs Discharge Planning Follow-up results of renogram and follow-up with urology if needed. Follow up final ID recommendations. Jeffy Cruz Jun 20, 2016 13:09
[2016-06-20] MEDS: SODIUM BICARBONATE 650 MG TAB PO SCH ×2 (13:37→21:52)
--- NOTE | 2016-06-20 13:50 | RADRPT ---
EXAM DATE/TIME: 06/20/2016 11:49 [facility] COMPARISON: No previous studies available for comparison. INDICATIONS : Hydronephrosis and cystic lesions on transplanted kidney. DOSE: 18.8 mCi Tc99m DTPA IV 3.2 mCi Sulfur Colloid IV MEDICATION: 40 mg Lasix IV MEDICAL HISTORY : Hypertension. Diabetes mellitus type 2. Gastroesophageal reflux disease. Myocardial infarction and ch ronic kidney disease. SURGICAL HISTORY : Coronary artery stent. Kidney transplant. ENCOUNTER: Initial ACUITY: 1 day PAIN SCALE: 0/10 LOCATION: Abdomen. TECHNIQUE: A static anterior image of the pelvis and renal transplant was performed after intravenous administra tion of sulfur colloid. Following the intravenous administration of DTPA, dynamic imaging of flow an d excretory phases was performed. IV Lasix was given at 13 minutes. FINDINGS: FLOW: There is good perfusion to the transplant EXCRETION: There is poor renal cortical transit time and poor rate rate of washout from the parenchyma. PORT-DIURETIC: There is no change in the rate of excretion post Lasix. There is Grade I sulfur colloid uptake less than marrow.. CONCLUSION: There is no obstruction. Delayed cortical transit. There is minimal sulfur colloid uptake, this can be seen with rejection. Equal to or greater than bone marrow is suspicious for acute rejection. Co rrelation is suggested. Lamin Brandon MD FACR on June 20, 2016 at 13:35 Board Certified Radiologist. This report was verified electronically.
--- NOTE | 2016-06-20 16:14 | HHI.PR ---
Subjective Remarks Denies complaints. Anxious to go home. Objective Vital Signs Vital Signs Date Time Temp Pulse Resp B/P Pulse Ox O2 Delivery O2 Flow Rate FiO2 06/20/16 12:00 96.2 74 16 150/76 99 06/20/16 09:41 66 06/20/16 08:00 97.3 68 16 171/88 97 06/20/16 04:00 97.8 70 20 172/90 99 06/20/16 00:00 97.5 71 20 175/92 94 06/19/16 20:00 97.4 75 16 182/97 99 06/19/16 20:00 73 I/O 06/19/16 06/19/16 06/19/16 06/20/16 06/20/16 06/20/16 07:00 15:00 23:00 07:00 15:00 23:00 Intake Total 770 ml 1170 ml 480 ml 60 ml Balance 770 ml 1170 ml 480 ml 60 ml Intake Oral 240 ml 1170 ml 480 ml 60 ml IV Total 530 ml # Voids 4 2 1 # Bowel Movements 2 0 1 Result Diagram: 06/19/16 0432 06/19/16 0432 Imaging Renal scan with Lasix washout did not demonstrate any evidence of obstructive uropathy involving the transplant kidney. Assessment and Plan Assessment and Plan Urologic impression: Physiologic dilation of the renal transplant collecting system without evidence of obstruction. Recommendation: #1 no further recommendations #2 will be available as needed Alhaji Kilpatrick MD Jun 20, 2016 16:14
[2016-06-20] MEDS: ENALAPRILAT 1.25 MG/ML VIAL IV PUSH PRN (17:31)
[2016-06-20] MEDS ORDERED: Custom Consult Pharmacy 1 EA OTHER SCH (17:45)
--- NOTE | 2016-06-20 18:10 | HHI.IDPN ---
Subjective Subjective Remarks pt is doing good afebrile Renal Scan negative Clx results noted Antibiotics fortaz Allergies: Coded Allergies: Cipro (Verified Allergy, Severe, Itching, 06/16/16) Objective . Vital Signs Date Time Temp Pulse Resp B/P Pulse Ox O2 Delivery O2 Flow Rate FiO2 06/20/16 16:00 96.2 73 17 178/98 99 06/20/16 12:00 96.2 74 16 150/76 99 06/20/16 09:41 66 06/20/16 08:00 97.3 68 16 171/88 97 06/20/16 04:00 97.8 70 20 172/90 99 06/20/16 00:00 97.5 71 20 175/92 94 06/19/16 20:00 97.4 75 16 182/97 99 06/19/16 20:00 73 06/19/16 06/19/16 06/20/16 15:00 23:00 07:00 Intake Total 1170 ml 480 ml 60 ml Balance 1170 ml 480 ml 60 ml Intake Oral 1170 ml 480 ml 60 ml # Voids 4 2 1 # Bowel Movements 2 0 1 . URINE CULTURE Preliminary 06/20/16-1118 1.>100,000 CFU/ML ACHROMOBACTER XYLOSOXIDANS 2. >100,000 CFU/ML GROUP D ENTEROCOCCUS (PRESUMPTIVE ID) ID AND SHARON TO FOLLOW Results called with read-back confirmation to OLLIE SILVA by ASA REHMAN at [phone] ORIGINALLY REPORTED : >100,000 CFU/ML STAPHYLOCOCCUS SPECIES - ID AND SHARON TO FOLLOW [facility] M.I.C. RX --------- --- PIPERCILLIN/TAZOBACTAM <16 S CEFTRIAXONE >32 R CEFTAZIDIME 4 S CEFEPIME >16 R AZTREONAM >16 R IMIPENEM <1 S GENTAMICIN >8 R TOBRAMYCIN >8 R TETRACYCLINE >8 R TRIMETH/SULFA <2/38 S CIPROFLOXACIN >2 R LEVOFLOXACIN <2 S Laboratory Tests Test 06/19/16 04:32 White Blood Count 7.6 TH/MM3 Red Blood Count 2.82 MIL/MM3 Hemoglobin 8.8 GM/DL Hematocrit 27.0 % Mean Corpuscular Volume 95.7 FL Mean Corpuscular Hemoglobin 31.1 PG Mean Corpuscular Hemoglobin 32.5 % Concent Red Cell Distribution Width 15.7 % Platelet Count 175 TH/MM3 Mean Platelet Volume 8.3 FL Neutrophils (%) (Auto) 67.1 % Lymphocytes (%) (Auto) 19.0 % Monocytes (%) (Auto) 9.9 % Eosinophils (%) (Auto) 3.5 % Basophils (%) (Auto) 0.5 % Neutrophils # (Auto) 5.1 TH/MM3 Lymphocytes # (Auto) 1.5 TH/MM3 Monocytes # (Auto) 0.8 TH/MM3 Eosinophils # (Auto) 0.3 TH/MM3 Basophils # (Auto) 0.0 TH/MM3 CBC Comment DIFF FINAL Differential Comment Laboratory Tests Test 06/19/16 04:32 Sodium Level 135 MEQ/L Potassium Level 4.2 MEQ/L Chloride Level 103 MEQ/L Carbon Dioxide Level 18.4 MEQ/L Anion Gap 14 MEQ/L Blood Urea Nitrogen 35 MG/DL Creatinine 3.36 MG/DL Estimat Glomerular Filtration 13 ML/MIN Rate Random Glucose 94 MG/DL Calcium Level 8.5 MG/DL Imaging Last Impressions Renal Scan Nuclear Medicine 06/20/16 0000 Signed Impressions: Service Date/Time: Monday, June 20, 2016 11:49 - CONCLUSION: There is no obstruction. Delayed cortical transit. There is minimal sulfur colloid uptake , this can be seen with rejection. Equal to or greater than bone marrow is suspicious for acute rejection. Correlation is suggested. Lamin Brandon MD FACR Renal Ultrasound 06/17/16 0000 Signed Impressions: Service Date/Time: Friday, June 17, 2016 09:29 - CONCLUSION: 1. Hydronephrosis. This is a new finding from the prior study of 2012. 2. Mild increase in echogenicity of the kidney which is a nonspecific finding. Dexter Jane Jr., MD Chest X-Ray 06/16/16 1833 Signed Impressions: Service Date/Time: June 18:52 - CONCLUSION: No appreciable change. Mago Matos MD Head CT 06/16/16 0000 Signed Impressions: Service Date/Time: June 19:08 - CONCLUSION: Unremarkable study except for left eithmoid air cells mucoperiosteal thickening. Mago Matos MD Physical Exam CONSTITUTIONAL/GENERAL: This is an adequately nourished patient, in no apparent distress. TUBES/LINES/DRAINS: SKIN: No jaundice, rashes, or lesions. Ecchymoses on upper extremities. No wounds seen anteriorly. Skin temperature appropriate. Not diaphoretic. HEAD: Atraumatic. Normocephalic. EYES: Pupils equal and round and reactive. Extraocular motions intact. No scleral icterus. No injection or drainage. Fundi not examined. CARDIOVASCULAR: Regular rate and rhythm without murmurs, gallops, or rubs. No JVD. Peripheral pulses symmetric. RESPIRATORY/CHEST: Symmetric, unlabored respirations. Clear to auscultation. Breath sounds equal bilaterally. No wheezes, rales, or rhonchi. GASTROINTESTINAL: Abdomen soft, non-tender, nondistended. No hepato-splenomegaly , or palpable masses. No guarding. Bowel sounds present. MUSCULOSKELETAL: Extremities without clubbing, cyanosis, or edema. No joint tenderness or effusion noted. No calf tenderness. No mottling or clubbing. NEUROLOGICAL: Awake and alert. Motor and sensory grossly within normal limits. Follows commands. Normal speech Moves all extremities. Assessment & Plan Remarks UTI in transplanted kidney - ACHROMOBACTER XYLOSOXIDANS MDRO, S ceftaz 2. >100,000 CFU/ML GROUP D ENTEROCOCCUS - repeat UA, C+S is much better - no e/o obstruction on renal scan Immunosuppresed - cont fortaz - add ampicillin 500 po q 8 hrs - fu Enterococcus S report to decide on final rec's dw Dr Rosi Ramirez,Esthela Chapa MD Jun 20, 2016 18:09
[2016-06-20] MEDS: TACROLIMUS 0.5 MG CAP PO SCH (21:00)
[2016-06-20] MEDS ORDERED: SULFAMETHOXAZOLE-TRIMETHOPRIM 400-80 MG TAB PO SCH (21:00)
[2016-06-20] MEDS: cefTAZidime INJ 1,000 MG in SODIUM CHLORIDE 0.9% INJ 100 ML IV SCH (21:50)
[2016-06-20] MEDS: AMOXICILLIN (TRIHYDRATE) 500 MG CAP PO SCH (21:52)
[2016-06-21] VITALS (7 sets, daily range): BP systolic 124–167; BP diastolic 67–89; PULSE 66–95; RESP 16–19; TEMP 97.2–98; O2SAT 95–99
[2016-06-21] MEDS: MYCOPHENOLATE MOFETIL 500 MG TAB PO SCH ×2 (05:32→17:13)
[2016-06-21] MEDS: AMOXICILLIN (TRIHYDRATE) 500 MG CAP PO SCH ×3 (05:32→22:20)
[2016-06-21] MEDS: INSULIN ASPART SUPPLEMENTAL SCALE SQ SCH ×4 (06:19→21:00)
[2016-06-21] MEDS: POTASSIUM CHLORIDE 20 MEQ CONTROLLED RELEASE TAB PO SCH (08:21)
[2016-06-21] MEDS: TACROLIMUS 1 MG CAP PO SCH ×2 (08:21→22:20)
[2016-06-21] MEDS: SERTRALINE HCL 50 MG TAB PO SCH (08:21)
[2016-06-21] MEDS: ISOSORBIDE DINITRATE 10 MG TAB PO SCH (08:21)
[2016-06-21] MEDS: predniSONE 5 MG TAB PO SCH (08:22)
[2016-06-21] MEDS: GABAPENTIN 100 MG CAP PO SCH ×3 (08:22→17:13)
[2016-06-21] MEDS: LACTOBACILLUS ACIDOPHILUS TAB PO SCH (08:22)
[2016-06-21] MEDS: METOPROLOL TARTRATE 100 MG TAB PO SCH ×2 (08:22→22:19)
[2016-06-21] MEDS: FERROUS SULFATE 325 MG (65 MG ELEMENTAL IRON) TAB PO SCH (08:22)
[2016-06-21] MEDS: SODIUM BICARBONATE 650 MG TAB PO SCH ×2 (08:24→22:20)
[2016-06-21] MEDS: SODIUM CHLORIDE 0.9% FLUSH 5 ML FLUSH FLUSH SCH ×2 (08:29→22:19)
[2016-06-21 11:06] LABS: BICARBONATE 17.8 MEQ/L (21.0-32.0)
--- NOTE | 2016-06-21 12:15 | HHI.NPPN ---
Subjective History of Present Illness 76 Year old female with Kidney Transplant 2004 with CKD/UTI Interval History GFR is stable. She feels well. (Noa Vazquez) Review of Systems General Constitutional: Fatigue (Noa Vazquez) Objective Data Data 06/20/16 06/21/16 19:00 07:00 Intake Total 360 ml Balance 360 ml Intake Oral 360 ml # Voids 5 # Bowel Movements 2 Vital Signs Date Time Temp Pulse Resp B/P Pulse Ox O2 Delivery O2 Flow Rate FiO2 06/21/16 12:03 97.7 68 19 124/67 96 06/21/16 11:47 66 06/21/16 08:27 98.0 70 18 155/78 96 06/21/16 04:00 97.2 95 18 167/89 95 06/20/16 22:00 98.0 100 18 133/78 95 06/20/16 20:34 96.2 71 18 145/85 99 06/20/16 20:00 68 06/20/16 16:00 96.2 73 17 178/98 99 (Noa Vazquez) -: 06/19/16 0432 06/21/16 1006 Physical Exam General Appearance: Well Developed, Well Nourished, No Acute Distress, Comfortable ( Noa Vazquez) Neck Neck Exam: Neck Supple (Noa Vazquez) Pulmonary Resp Exam: Clear Bilaterally, Breath Sounds Equal (Noa Vazquez) Cardiology CV Exam: Regular, Normal Sinus Rhythm (Noa Vazquez) Gastrointestinal/Abdomen GI Exam: Soft, Non-Tender, Bowel Sounds Present (Noa Vazquez) Musculoskeletal MS Exam: Joints Intact, Normal Tone (Noa Vazquez) Integumentary Skin Exam: Clear, Warm, Dry (Noa Vazquez) Extremeties Extremities Exam: Pedal Pulses Palpable (Noa Vazquez) Neurologic Neuro Exam: Alert (Noa Vazquez) Assessment/Plan Problem List: (1) Acute on chronic kidney failure Plan: She has underlying CKD 4, in March creatinine measured 2.4 at discharge, GFR was 19 may have had a decline since then, her transplant is nearly 15 years old. 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 Agree with above assessment and plan. (Jett Diana MD) Noa Vazquez Jun 21, 2016 12:15 Jett Diana MD Jun 21, 2016 16:45
--- NOTE | 2016-06-21 15:36 | EKG ---
Date Performed: 06/20/2016 Time Performed: 15:18:41 PTAGE: 76 years EKG: Sinus rhythm LEFT BUNDLE BRANCH BLOCK ABNORMAL ECG PREVIOUS TRACING : 06/16/2016 18.44 No significant change from previous tracing noted. DOCTOR: Osei Ocampo Interpretating Date/Time 06/21/2016 15:34:48
--- NOTE | 2016-06-21 16:39 | HHI.IDPN ---
Subjective Subjective Remarks pt is doing good afebrile Clx results noted Antibiotics fortaz ampicillin Allergies: Coded Allergies: Cipro (Verified Allergy, Severe, Itching, 06/16/16) Objective . Vital Signs Date Time Temp Pulse Resp B/P Pulse Ox O2 Delivery O2 Flow Rate FiO2 06/21/16 14:00 97.4 69 16 156/71 99 06/21/16 12:03 97.7 68 19 124/67 96 06/21/16 11:47 66 06/21/16 08:27 98.0 70 18 155/78 96 06/21/16 04:00 97.2 95 18 167/89 95 06/20/16 22:00 98.0 100 18 133/78 95 06/20/16 20:34 96.2 71 18 145/85 99 06/20/16 20:00 68 06/20/16 06/20/16 06/21/16 15:00 23:00 07:00 Intake Total 360 ml Balance 360 ml Intake Oral 360 ml # Voids 5 # Bowel Movements 2 . Laboratory Tests Test 06/21/16 10:06 Sodium Level 133 MEQ/L Potassium Level 4.0 MEQ/L Chloride Level 103 MEQ/L Carbon Dioxide Level 17.8 MEQ/L Anion Gap 12 MEQ/L Blood Urea Nitrogen 32 MG/DL Creatinine 3.54 MG/DL Estimat Glomerular Filtration 13 ML/MIN Rate Random Glucose 87 MG/DL Calcium Level 8.6 MG/DL Phosphorus Level 3.2 MG/DL Albumin 2.6 GM/DL Imaging Last Impressions Renal Scan Nuclear Medicine 06/20/16 0000 Signed Impressions: Service Date/Time: Monday, June 20, 2016 11:49 - CONCLUSION: There is no obstruction. Delayed cortical transit. There is minimal sulfur colloid uptake , this can be seen with rejection. Equal to or greater than bone marrow is suspicious for acute rejection. Correlation is suggested. Lamin Brandon MD FACR Renal Ultrasound 06/17/16 0000 Signed Impressions: Service Date/Time: Friday, June 17, 2016 09:29 - CONCLUSION: 1. Hydronephrosis. This is a new finding from the prior study of 2012. 2. Mild increase in echogenicity of the kidney which is a nonspecific finding. Dexter Jane Jr., MD Chest X-Ray 06/16/16 1833 Signed Impressions: Service Date/Time: June 18:52 - CONCLUSION: No appreciable change. Mago Matos MD Head CT 06/16/16 0000 Signed Impressions: Service Date/Time: June 19:08 - CONCLUSION: Unremarkable study except for left eithmoid air cells mucoperiosteal thickening. Mago Matos MD Physical Exam CONSTITUTIONAL/GENERAL: This is an adequately nourished patient, in no apparent distress. Assessment & Plan Remarks UTI in transplanted kidney - ACHROMOBACTER XYLOSOXIDANS MDRO, S ceftaz 2. >100,000 CFU/ML GROUP D ENTEROCOCCUS - repeat UA, C+S is much better - no e/o obstruction on renal scan -Allergic to cipro Immunosuppresed - cont fortaz x 14 days - cont ampicillin 500 po q 8 hrs - rechk urine clx alone; if still has Enterococci will need to use daptomycin PICC if OK with science liaison Esthela Hansen Dr, MD Jun 21, 2016 16:39
--- NOTE | 2016-06-21 16:44 | HHI.FF ---
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 [] May leave port accessed during therapy. [] May leave peripheral site accessed for duration of therapy. [x] If patient has SOB or respiratory distress, check oxygen saturation. If less than 90% or clinical signs of respiratory distress, administer oxygen at 2 L/min. via nasal cannula and notify physician. [x] Anaphylaxis/Reaction orders: * Stop infusion. * Keep IV line open with saline flush. * Notify physician. * Monitor vital signs every 15 minutes until symptoms resolve. * Check Oxygen saturation; Oxygen at 2 L/min. via nasal cannula if less than 90% or clinical signs of respiratory distress. * Administer diphenhydramine (Benadryl) 25 mg IV STAT, (unless patient has received as pre-med). May repeat once, if necessary. * Solu-Cortef 250 mg IVP over 30-60 seconds, use 100 mg vials for each dissolution. * Epinephrine (1mg/1 ml) 0.3 mg subcutaneously or IVP now with any signs of respiratory distress. * Check with physician for new additional pre-med orders if patient is re- challenged or re-treated. [x] May remove PICC line when treatment complete, after confirming with Physician. [x] If the patient is admitted to the hospital, the ED, or transferred via [facility] , complete transfer form including medication reconciliation order sheet. Laboratory Tests Weekly Labs: CBC w/diff, Creatinine (every Mon and Thur) Esthela Ramirez MD Jun 21, 2016 16:44
--- NOTE | 2016-06-21 17:32 | HHI.PR ---
Subjective Remarks Follow up for UTI, ALEXIA on CKD. The patient is seen ambulating her room. She complains of just some mild lightheadedness and very mild headache. Still able to ambulate without difficulty. She otherwise denies any other medical complaints including no fevers/chills, dysuria, abdominal pain, nausea/ vomiting. She is tolerating oral intake. Objective Vitals Vital Signs Date Time Temp Pulse Resp B/P Pulse Ox O2 Delivery O2 Flow Rate FiO2 06/21/16 14:00 97.4 69 16 156/71 99 06/21/16 12:03 97.7 68 19 124/67 96 06/21/16 11:47 66 06/21/16 08:27 98.0 70 18 155/78 96 06/21/16 04:00 97.2 95 18 167/89 95 06/20/16 22:00 98.0 100 18 133/78 95 06/20/16 20:34 96.2 71 18 145/85 99 06/20/16 20:00 68 I/O 06/20/16 06/20/16 06/20/16 06/21/16 06/21/16 06/21/16 07:00 15:00 23:00 07:00 15:00 23:00 Intake Total 60 ml 360 ml 500 ml Balance 60 ml 360 ml 500 ml Intake Oral 60 ml 360 ml 500 ml # Voids 1 5 3 # Bowel Movements 1 2 1 Result Diagram: 06/19/16 0432 06/21/16 1006 Imaging Last Impressions Renal Scan Nuclear Medicine 06/20/16 0000 Signed Impressions: Service Date/Time: Monday, June 20, 2016 11:49 - CONCLUSION: There is no obstruction. Delayed cortical transit. There is minimal sulfur colloid uptake , this can be seen with rejection. Equal to or greater than bone marrow is suspicious for acute rejection. Correlation is suggested. Lamin Brandon MD FACR Renal Ultrasound 06/17/16 0000 Signed Impressions: Service Date/Time: Friday, June 17, 2016 09:29 - CONCLUSION: 1. Hydronephrosis. This is a new finding from the prior study of 2012. 2. Mild increase in echogenicity of the kidney which is a nonspecific finding. Dexter Jane Jr., MD Chest X-Ray 06/16/16 1833 Signed Impressions: Service Date/Time: June 18:52 - CONCLUSION: No appreciable change. Mago Matos MD Head CT 06/16/16 0000 Signed Impressions: Service Date/Time: June 19:08 - CONCLUSION: Unremarkable study except for left eithmoid air cells mucoperiosteal thickening. Mago Matos MD Objective Remarks GENERAL: Well-nourished, well-developed pleasant elderly female patient in [facility]. SKIN: Warm and dry. No rash. HEENT: Normocephalic. Atraumatic. Pupils equal and round. NECK: Supple. Trachea midline. CARDIOVASCULAR: Regular rate and rhythm. S1, S2 noted. No murmur appreciated. RESPIRATORY: No accessory muscle use. Clear to auscultation. Breath sounds equal bilaterally. GASTROINTESTINAL: Abdomen soft, non-tender, nondistended. Normoactive bowel sounds x4. MUSCULOSKELETAL: No obvious deformities. Extremities without clubbing, cyanosis , or edema. NEUROLOGICAL: Awake and alert. No obvious cranial nerve deficits. Motor grossly within normal limits. Moves all extremities spontaneously. Normal speech. PSYCHIATRIC: Appropriate mood and affect; insight and judgment normal. Medications and IVs Current Medications Medications (Trade) Dose Ordered Sig/Paige Route Start Time Stop Time Status Last Admin (NS Flush) 2 ml UNSCH PRN FLUSH 06/17/16 00:30 (NS Flush) 2 ml BID FLUSH 06/17/16 09:00 06/21/16 08:29 (Narcan Inj) 0.4 mg UNSCH PRN IV 06/17/16 00:30 (D50w (Vial) Inj) 25 ml UNSCH PRN IV PUSH 06/17/16 00:30 (Glucagon Inj) 1 mg UNSCH PRN OTHER 06/17/16 00:30 (Neurontin) 100 mg TID PO 06/17/16 09:00 06/21/16 17:13 (Isordil) 10 mg DAILY PO 06/17/16 09:00 06/21/16 08:21 (Lopressor) 100 mg BID PO 06/17/16 09:00 06/21/16 08:22 (KCl) 20 meq DAILY PO 06/17/16 09:00 06/21/16 08:21 (Deltasone) 5 mg DAILY PO 06/17/16 09:00 06/21/16 08:22 (Zoloft) 50 mg DAILY PO 06/17/16 09:00 06/21/16 08:21 (Prograf) 0.5 mg HS PO 06/17/16 21:00 06/20/16 21:00 (Prograf) 2 mg DAILY PO 06/17/16 09:00 06/21/16 08:21 (Prograf) 1 mg HS PO 06/17/16 21:00 06/20/16 21:51 (Lactinex) 1 tab DAILY PO 06/17/16 09:00 06/21/16 08:22 (Cellcept) 500 mg Q12H PO 06/17/16 06:00 06/21/16 17:13 (Tylenol) 650 mg Q6H PRN PO 06/17/16 09:30 06/19/16 15:29 (Restoril) 7.5 mg HS PRN PO 06/19/16 13:30 06/19/16 22:05 (Ferrous Sulfate) 325 mg DAILY PO 06/20/16 09:00 06/21/16 08:22 (Sodium Bicarbonate) 650 mg Q12HR PO 06/20/16 12:30 06/21/16 08:24 Enalaprilat 1.25 mg 1.25 mg Q6H PRN IV PUSH 06/20/16 18:00 06/20/16 17:31 Ceftazidime 1000 mg/Sodium Chloride 100 ml @ 200 mls/hr Q24H IV 06/20/16 20:00 06/20/16 21:50 ([facility]) 0 ml @ 0 mls/hr UNSCH OTHER 06/20/16 17:45 (Trimox) 500 mg Q8HR PO 06/20/16 22:00 06/21/16 13:06 Urinary Catheter: No A/P Problem List: (1) UTI (urinary tract infection) ICD Code: N39.0 Status: Acute (2) Sepsis ICD Code: A41.9 Status: Acute (3) CKD (chronic kidney disease) stage 5, GFR less than 15 ml/min ICD Code: N18.5 Status: Chronic (4) DM (diabetes mellitus) ICD Code: E11.9 Status: Chronic Assessment and Plan 76-year-old female with a history of diabetes, osteoarthritis, hypertension, dyslipidemia, and kidney transplant on immunosuppressant therapies presented with: Sepsis with Complicated UTI, Failed Outpatient: on immunosuppression with hx of renal transplant. WBC 11.3, febrile 102.1, HR 99. Lactic acid 0.9. Influenza negative. Blood cultures with NGTD. Urinalysis evidence of UTI. Leukocytosis now resolved. Urine culture with Achromobacter and Enterococcus. ID Consulted, patient now on IV Ceftazadime and po Ampicillin. ID requested repeat urine culture today. Patient will need outpatient infusion arranged, consult case management. Acute on Chronic kidney disease, stage 5, history of renal transplant: Upon arrival, Creatinine 3.9, baseline ~2.8. Giving gentle IVF per nephrology. Renal U/S as below. Consulted nephrology, appreciate recommendations. Tacrolimus within normal limits. Continue patient's home meds, Prograf. Avoid further nephrotoxins. Cleared for discharge by nephrology. Hydronephrosis: Renal U/S shows significant hydronephrosis, new finding compared to 2013 U/S. Consulted urology, renogram with Lasix showed no obstruction. Cleared for discharge by urology. Normocytic Anemia: likely ACD secondary to CKD. Given Epogen by nephrology. Iron studies consistent with iron deficiency, started on supplementation. Monitor CBC. Patient received Epogen injections every Monday as outpatient. Diabetes, chronic: Monitor Accu-Cheks AC/hS and cover with SSI. Insomnia: Restoril as needed. LLE laceration: S/P sutures and Steri-Strips 2 weeks ago at an outside ED. Removed 6 sutures 06/20. Continue local wound care and clean dressing. 06/21 Lightheadedness: unclear etiology. Will recheck CBC/BMP/Mag tomorrow. Check orthostatics. Monitor BP, currently stable. All other medical conditions stable, continue home meds as appropriate. DVT prophylaxis: SCDs Discussed with RN and Dr. Medina. Discharge Planning Discharge when cleared by ID and when outpatient antibiotic infusion arrangements made. Vicky Brown PA-C Jun 21, 2016 17:32 Wm Medina MD Jun 21, 2016 21:19
[2016-06-21] MEDS: cefTAZidime INJ 1,000 MG in SODIUM CHLORIDE 0.9% INJ 100 ML IV SCH (22:19)
[2016-06-21] MEDS: TACROLIMUS 0.5 MG CAP PO SCH (22:20)
[2016-06-21] MEDS: ENALAPRILAT 1.25 MG/ML VIAL IV PUSH PRN (23:47)
[2016-06-22] VITALS (9 sets, daily range): BP systolic 117–182; BP diastolic 65–86; PULSE 61–72; RESP 16–20; TEMP 95.9–98; O2SAT 96–100
[2016-06-22] MEDS: ENALAPRILAT 1.25 MG/ML VIAL IV PUSH PRN (05:32)
[2016-06-22] MEDS: MYCOPHENOLATE MOFETIL 500 MG TAB PO SCH ×2 (05:34→17:10)
[2016-06-22] MEDS: AMOXICILLIN (TRIHYDRATE) 500 MG CAP PO SCH ×3 (05:34→21:16)
[2016-06-22] MEDS: INSULIN ASPART SUPPLEMENTAL SCALE SQ SCH ×4 (05:35→21:18)
[2016-06-22 08:11] LABS: AUTOMATED NEUTROPHIL # 3.6 TH/MM3 (1.8-7.7); BASOPHIL # 0.1 TH/MM3 (0-0.2); EOSINOPHIL # 0.2 TH/MM3 (0-0.4); EOSINOPHIL % 3.2 % (0.0-4.0); HEMATOCRIT 26.9 % (35.0-46.0); LYMPH % 25.7 % (9.0-44.0); LYMPHOCYTE # 1.6 TH/MM3 (1.0-4.8); MEAN CELL VOLUME 96.2 FL (80.0-100.0); MEAN CORPUSCULAR HEMOGLOBIN 30.7 PG (27.0-34.0); MEAN CORPUSCULAR HGB CONC 31.9 % (32.0-36.0); MONO % 11.8 % (0.0-8.0); NEUT % 58.3 % (16.0-70.0); PLATELET COUNT 187 TH/MM3 (150-450); RED BLOOD COUNT 2.79 MIL/MM3 (4.00-5.30); RED CELL DISTRIBUTION WIDTH 15.4 % (11.6-17.2); WHITE BLOOD COUNT 6.2 TH/MM3 (4.0-11.0)
[2016-06-22 08:14] LABS: HEMO FLAGS AUTO DIFF
[2016-06-22 08:37] LABS: BICARBONATE 15.6 MEQ/L (21.0-32.0); MAGNESIUM 1.5 MG/DL (1.5-2.5); POTASSIUM 4.4 MEQ/L (3.5-5.1)
[2016-06-22] MEDS: ISOSORBIDE DINITRATE 10 MG TAB PO SCH (08:45)
[2016-06-22] MEDS: SODIUM CHLORIDE 0.9% FLUSH 5 ML FLUSH FLUSH SCH ×2 (08:45→21:17)
[2016-06-22] MEDS: predniSONE 5 MG TAB PO SCH (08:45)
[2016-06-22] MEDS: FERROUS SULFATE 325 MG (65 MG ELEMENTAL IRON) TAB PO SCH (08:45)
[2016-06-22] MEDS: GABAPENTIN 100 MG CAP PO SCH ×3 (08:46→17:10)
[2016-06-22] MEDS: SODIUM BICARBONATE 650 MG TAB PO SCH ×2 (08:46→21:33)
[2016-06-22] MEDS: POTASSIUM CHLORIDE 20 MEQ CONTROLLED RELEASE TAB PO SCH (08:46)
[2016-06-22] MEDS: LACTOBACILLUS ACIDOPHILUS TAB PO SCH (08:46)
[2016-06-22] MEDS: TACROLIMUS 1 MG CAP PO SCH ×2 (08:46→21:16)
[2016-06-22] MEDS: SERTRALINE HCL 50 MG TAB PO SCH (08:46)
[2016-06-22] MEDS: METOPROLOL TARTRATE 100 MG TAB PO SCH ×2 (08:46→21:16)
[2016-06-22 09:00] LABS: OVALOCYTES 1+ (NORMAL); SCAN/DIFF AUTO DIFF CONFIRMED
[2016-06-22] MEDS: amLODIPine BESYLATE 5 MG TAB PO SCH (11:12)
--- NOTE | 2016-06-22 11:47 | HHI.NPPN ---
Subjective History of Present Illness 76 Year old female with Kidney Transplant 2004 with CKD/UTI Interval History Renal function improved. Discharge plans in process. (Noa Vazquez) Review of Systems General Constitutional: Fatigue (Noa Vazquez) Objective Data Data 06/21/16 06/22/16 19:00 07:00 Intake Total 500 ml 720 ml Balance 500 ml 720 ml Intake Oral 500 ml 720 ml # Voids 3 1 # Bowel Movements 1 Vital Signs Date Time Temp Pulse Resp B/P Pulse Ox O2 Delivery O2 Flow Rate FiO2 06/22/16 10:37 97.7 72 17 117/78 96 06/22/16 08:26 98.0 72 18 163/68 97 06/22/16 04:26 96.9 63 20 178/86 97 06/22/16 00:30 162/78 06/22/16 00:10 97.2 66 18 173/83 98 06/21/16 20:11 97.3 72 18 165/85 99 06/21/16 20:00 68 06/21/16 14:00 97.4 69 16 156/71 99 06/21/16 12:03 97.7 68 19 124/67 96 06/21/16 11:47 66 (Noa Vazquez) -: 06/22/16 0701 06/22/16 0701 Microbiology 06/21/16 Urine Culture, Received Pending (Noa Vazquez) Physical Exam General Appearance: Well Developed, Well Nourished, No Acute Distress, Comfortable ( Noa Vazquez) Neck Neck Exam: Neck Supple (Noa Vazquez) Pulmonary Resp Exam: Clear Bilaterally, Breath Sounds Equal (Noa Vazquez) Cardiology CV Exam: Regular, Normal Sinus Rhythm (Noa Vazquez) Gastrointestinal/Abdomen GI Exam: Soft, Non-Tender, Bowel Sounds Present (Noa Vazquez) Musculoskeletal MS Exam: Joints Intact, Normal Tone (Noa Vazquez) Integumentary Skin Exam: Clear, Warm, Dry (Noa Vazquez) Extremeties Extremities Exam: Pedal Pulses Palpable (Noa Vazquez) Neurologic Neuro Exam: Alert (Noa Vazquez) Assessment/Plan Problem List: (1) Acute on chronic kidney failure Plan: She has underlying CKD 4, in March creatinine measured 2.4 at discharge, GFR was 19 may have had a decline since then, her transplant is nearly 15 years old. 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 [place] continue oral bicarb at discharge oral intake adequate, no IVF required cleared for discharge once Abx therapy is established (2) UTI (urinary tract infection) Plan: ID to determine discharge Abx therapy blood cx negative to date (3) Renal transplant recipient Plan: tacrolimus level acceptable continue rejection medications: tacrolimus, 2 mg in am; 1.5 qhs prednisone 5 mg daily cellcept 500 mg BID monitor renal function (4) Anemia in CKD (chronic kidney disease) Plan: given epogen on oral iron; she is iron deficient but avoid Venofer in light of infection (5) HTN (hypertension) Plan: continue medications as ordered Amlodipine has been added (Noa Vazquez) Plan patient was seen and examined. Renal function is stable. She can be discharged from renal standpoint. (Jett Diana MD) Noa Vazquez Jun 22, 2016 11:47 Jett Diana MD Jun 23, 2016 10:01
--- NOTE | 2016-06-22 16:43 | HHI.PR ---
Subjective Remarks Follow up for UTI, ALEXIA on CKD. The patient reports her lightheadedness she was experiencing yesterday has resolved. Denies any further headache. Denies any fevers/chills. Asking when she can go home. Objective Vitals Vital Signs Date Time Temp Pulse Resp B/P Pulse Ox O2 Delivery O2 Flow Rate FiO2 06/22/16 14:45 61 06/22/16 14:00 95.9 70 19 167/83 100 06/22/16 11:53 96.8 67 16 137/65 98 06/22/16 10:37 97.7 72 17 117/78 96 06/22/16 08:26 98.0 72 18 163/68 97 06/22/16 04:26 96.9 63 20 178/86 97 06/22/16 00:30 162/78 06/22/16 00:10 97.2 66 18 173/83 98 06/21/16 20:11 97.3 72 18 165/85 99 06/21/16 20:00 68 I/O 06/21/16 06/21/16 06/21/16 06/22/16 06/22/16 06/22/16 07:00 15:00 23:00 07:00 15:00 23:00 Intake Total 500 ml 480 ml 240 ml 550 ml Balance 500 ml 480 ml 240 ml 550 ml Intake Oral 500 ml 480 ml 240 ml 550 ml # Voids 3 1 3 # Bowel Movements 1 1 Result Diagram: 06/22/16 0701 06/22/16 0701 Imaging Last Impressions Renal Scan Nuclear Medicine 06/20/16 0000 Signed Impressions: Service Date/Time: Monday, June 20, 2016 11:49 - CONCLUSION: There is no obstruction. Delayed cortical transit. There is minimal sulfur colloid uptake , this can be seen with rejection. Equal to or greater than bone marrow is suspicious for acute rejection. Correlation is suggested. Lamin Brandon MD FACR Renal Ultrasound 06/17/16 0000 Signed Impressions: Service Date/Time: Friday, June 17, 2016 09:29 - CONCLUSION: 1. Hydronephrosis. This is a new finding from the prior study of 2012. 2. Mild increase in echogenicity of the kidney which is a nonspecific finding. Dexter Jane Jr., MD Chest X-Ray 06/16/16 7083 Signed Impressions: Service Date/Time: June 18:52 - CONCLUSION: No appreciable change. Mago Matos MD Head CT 06/16/16 0000 Signed Impressions: Service Date/Time: June 19:08 - CONCLUSION: Unremarkable study except for left eithmoid air cells mucoperiosteal thickening. Mago Matos MD Objective Remarks GENERAL: Well-nourished, well-developed pleasant elderly female patient in [place]. SKIN: Warm and dry. No rash. HEENT: Normocephalic. Atraumatic. Pupils equal and round. NECK: Supple. Trachea midline. CARDIOVASCULAR: Regular rate and rhythm. S1, S2 noted. No murmur appreciated. RESPIRATORY: No accessory muscle use. Clear to auscultation. Breath sounds equal bilaterally. GASTROINTESTINAL: Abdomen soft, non-tender, nondistended. Normoactive bowel sounds x4. MUSCULOSKELETAL: No obvious deformities. Extremities without clubbing, cyanosis , or edema. NEUROLOGICAL: Awake and alert. No obvious cranial nerve deficits. Motor grossly within normal limits. Moves all extremities spontaneously. Normal speech. PSYCHIATRIC: Appropriate mood and affect; insight and judgment normal. Medications and IVs Current Medications Medications (Trade) Dose Ordered Sig/Paige Route Start Time Stop Time Status Last Admin (NS Flush) 2 ml UNSCH PRN FLUSH 06/17/16 00:30 (NS Flush) 2 ml BID FLUSH 06/17/16 09:00 06/22/16 08:45 (Narcan Inj) 0.4 mg UNSCH PRN IV 06/17/16 00:30 (D50w (Vial) Inj) 25 ml UNSCH PRN IV PUSH 06/17/16 00:30 (Glucagon Inj) 1 mg UNSCH PRN OTHER 06/17/16 00:30 (Neurontin) 100 mg TID PO 06/17/16 09:00 06/22/16 14:12 (Isordil) 10 mg DAILY PO 06/17/16 09:00 06/22/16 08:45 (Lopressor) 100 mg BID PO 06/17/16 09:00 06/22/16 08:46 (KCl) 20 meq DAILY PO 06/17/16 09:00 06/22/16 08:46 (Deltasone) 5 mg DAILY PO 06/17/16 09:00 06/22/16 08:45 (Zoloft) 50 mg DAILY PO 06/17/16 09:00 06/22/16 08:46 (Prograf) 0.5 mg HS PO 06/17/16 21:00 06/21/16 22:20 (Prograf) 2 mg DAILY PO 06/17/16 09:00 06/22/16 08:46 (Prograf) 1 mg HS PO 06/17/16 21:00 06/21/16 22:20 (Lactinex) 1 tab DAILY PO 06/17/16 09:00 06/22/16 08:46 (Cellcept) 500 mg Q12H PO 06/17/16 06:00 06/22/16 05:34 (Tylenol) 650 mg Q6H PRN PO 06/17/16 09:30 06/19/16 15:29 (Restoril) 7.5 mg HS PRN PO 06/19/16 13:30 06/19/16 22:05 (Ferrous Sulfate) 325 mg DAILY PO 06/20/16 09:00 06/22/16 08:45 (Sodium Bicarbonate) 650 mg Q12HR PO 06/20/16 12:30 06/22/16 08:46 Enalaprilat 1.25 mg 1.25 mg Q6H PRN IV PUSH 06/20/16 18:00 06/22/16 05:32 Ceftazidime 1000 mg/Sodium Chloride 100 ml @ 200 mls/hr Q24H IV 06/20/16 20:00 06/21/16 22:19 ([facility]) 0 ml @ 0 mls/hr UNSCH OTHER 06/20/16 17:45 (Trimox) 500 mg Q8HR PO 06/20/16 22:00 06/22/16 14:12 (Norvasc) 5 mg DAILY PO 06/22/16 09:45 06/22/16 11:12 A/P Problem List: (1) UTI (urinary tract infection) ICD Code: N39.0 Status: Acute (2) Sepsis ICD Code: A41.9 Status: Acute (3) CKD (chronic kidney disease) stage 5, GFR less than 15 ml/min ICD Code: N18.5 Status: Chronic (4) DM (diabetes mellitus) ICD Code: E11.9 Status: Chronic Assessment and Plan 76-year-old female with a history of diabetes, osteoarthritis, hypertension, dyslipidemia, and kidney transplant on immunosuppressant therapies presented with: Sepsis with Complicated UTI, Failed Outpatient: on immunosuppression with hx of renal transplant. WBC 11.3, febrile 102.1, HR 99. Lactic acid 0.9. Influenza negative. Blood cultures with NGTD. Urinalysis evidence of UTI. Leukocytosis now resolved. Urine culture with Achromobacter and Enterococcus. ID Consulted, patient now on IV Ceftazidime and po Ampicillin. ID requested repeat urine culture and will d/c on abx based on culture. Will need outpatient infusion arranged, consult case management. Also need PICC placed prior to discharge. Acute on Chronic kidney disease, stage 5, history of renal transplant: Upon arrival, Creatinine 3.9, baseline ~2.8. Giving gentle IVF per nephrology. Renal U/S as below. Consulted nephrology, appreciate recommendations. Tacrolimus wnl. Continue patient's home meds, Prograf. Avoid further nephrotoxins. Cleared for discharge by nephrology. Hydronephrosis: Renal U/S shows significant hydronephrosis, new finding compared to 2013 U/S. Consulted urology, renogram with Lasix showed no obstruction. Cleared for discharge by urology. Normocytic Anemia: likely ACD secondary to CKD. Given Epogen by nephrology. Iron studies consistent with iron deficiency, started on supplementation. Monitor CBC. Patient received Epogen injections every Monday as outpatient. Diabetes, chronic: Monitor Accu-Cheks AC/hS and cover with SSI. Insomnia: Restoril as needed. LLE laceration: S/P sutures and Steri-Strips 2 weeks ago at an outside ED. Removed 6 sutures 06/20. Continue local wound care and clean dressing. 06/21 Lightheadedness: unclear etiology. CBC/BMP unremarkable, Mag 1.5, will give IV Mag Sulfate 1G now. Check orthostatics. Monitor BP, currently stable. All other medical conditions stable, continue home meds as appropriate. DVT prophylaxis: SCDs Discussed with RN and Show Card Letterer. Written by Vicky Brown, acting as scribe for Dr. Medina on 06/22/16 at 16:42. All or portions of this note were transcribed by scribe []. I, Dr. Wm Medina personally performed the history, physical exam, and medical decision making; and confirmed the accuracy of the information in the transcribed note. Authenticated by Dr. Wm Medina on 06/22/16 at 17:06. Discharge Planning Discharge when cleared by ID and when outpatient antibiotic infusion arrangements made. Vicky Brown PA-C Jun 22, 2016 16:42 Wm Medina MD Jun 22, 2016 17:06
[2016-06-22] MEDS ORDERED: MAGNESIUM SULFATE 1 GM PREMIX 100 ML IV ONE (16:45)
[2016-06-22] MEDS: TACROLIMUS 0.5 MG CAP PO SCH (21:15)
[2016-06-22] MEDS: cefTAZidime INJ 1,000 MG in SODIUM CHLORIDE 0.9% INJ 100 ML IV SCH (21:19)
[2016-06-23] VITALS (7 sets, daily range): BP systolic 144–178; BP diastolic 72–92; PULSE 62–80; RESP 16–20; TEMP 95.9–98.6; O2SAT 94–99
[2016-06-23] MEDS: AMOXICILLIN (TRIHYDRATE) 500 MG CAP PO SCH ×3 (06:12→20:53)
[2016-06-23] MEDS: INSULIN ASPART SUPPLEMENTAL SCALE SQ SCH ×4 (06:13→21:00)
[2016-06-23] MEDS: MYCOPHENOLATE MOFETIL 500 MG TAB PO SCH ×2 (06:13→18:09)
[2016-06-23] MEDS: SODIUM CHLORIDE 0.9% FLUSH 5 ML FLUSH FLUSH SCH ×2 (09:01→20:54)
[2016-06-23] MEDS: amLODIPine BESYLATE 5 MG TAB PO SCH (09:02)
[2016-06-23] MEDS: FERROUS SULFATE 325 MG (65 MG ELEMENTAL IRON) TAB PO SCH (09:02)
[2016-06-23] MEDS: METOPROLOL TARTRATE 100 MG TAB PO SCH ×2 (09:02→20:53)
[2016-06-23] MEDS: SODIUM BICARBONATE 650 MG TAB PO SCH ×3 (09:02→18:09)
[2016-06-23] MEDS: LACTOBACILLUS ACIDOPHILUS TAB PO SCH (09:02)
[2016-06-23] MEDS: SERTRALINE HCL 50 MG TAB PO SCH (09:02)
[2016-06-23] MEDS: ISOSORBIDE DINITRATE 10 MG TAB PO SCH (09:03)
[2016-06-23] MEDS: POTASSIUM CHLORIDE 20 MEQ CONTROLLED RELEASE TAB PO SCH (09:03)
[2016-06-23] MEDS: TACROLIMUS 1 MG CAP PO SCH ×2 (09:03→20:54)
[2016-06-23] MEDS: predniSONE 5 MG TAB PO SCH (09:03)
[2016-06-23] MEDS: GABAPENTIN 100 MG CAP PO SCH ×3 (09:03→18:09)
--- NOTE | 2016-06-23 09:24 | HHI.PR ---
Subjective Remarks Follow up for UTI, ALEXIA on CKD. The patient denies any fevers/chills, dysuria, or abdominal pain. Urinating well. She complains of noticing a twitch of her left hand over the past few days. Denies any other medical complaints. She wants to go home. Objective Vitals Vital Signs Date Time Temp Pulse Resp B/P Pulse Ox O2 Delivery O2 Flow Rate FiO2 06/23/16 08:45 95.9 70 20 151/79 98 06/23/16 04:00 97.7 66 18 178/92 97 06/23/16 00:00 96.0 63 20 144/72 96 06/22/16 20:00 97.9 68 18 182/85 98 06/22/16 14:45 61 06/22/16 14:00 95.9 70 19 167/83 100 06/22/16 11:53 96.8 67 16 137/65 98 06/22/16 10:37 97.7 72 17 117/78 96 I/O 06/22/16 06/22/16 06/22/16 06/23/16 06/23/16 06/23/16 07:00 15:00 23:00 07:00 15:00 23:00 Intake Total 240 ml 550 ml 240 ml Balance 240 ml 550 ml 240 ml Intake Oral 240 ml 550 ml 240 ml # Voids 1 3 2 # Bowel Movements 1 Result Diagram: 06/22/16 0701 06/22/16 0701 Imaging Last Impressions Renal Scan Nuclear Medicine 06/20/16 0000 Signed Impressions: Service Date/Time: Monday, June 20, 2016 11:49 - CONCLUSION: There is no obstruction. Delayed cortical transit. There is minimal sulfur colloid uptake , this can be seen with rejection. Equal to or greater than bone marrow is suspicious for acute rejection. Correlation is suggested. Lamin Brandon MD FACR Renal Ultrasound 06/17/16 0000 Signed Impressions: Service Date/Time: Friday, June 17, 2016 09:29 - CONCLUSION: 1. Hydronephrosis. This is a new finding from the prior study of 2012. 2. Mild increase in echogenicity of the kidney which is a nonspecific finding. Dexter Jane Jr., MD Chest X-Ray 06/16/16 7833 Signed Impressions: Service Date/Time: June 18:52 - CONCLUSION: No appreciable change. Mago Matos MD Head CT 06/16/16 0000 Signed Impressions: Service Date/Time: June 19:08 - CONCLUSION: Unremarkable study except for left eithmoid air cells mucoperiosteal thickening. Mago Matos MD Objective Remarks GENERAL: Well-nourished, well-developed pleasant elderly female patient in [facility]. SKIN: Warm and dry. No rash. HEENT: Normocephalic. Atraumatic. Pupils equal and round. NECK: Supple. Trachea midline. CARDIOVASCULAR: Regular rate and rhythm. S1, S2 noted. No murmur appreciated. RESPIRATORY: No accessory muscle use. Clear to auscultation. Breath sounds equal bilaterally. GASTROINTESTINAL: Abdomen soft, non-tender, nondistended. Normoactive bowel sounds x4. MUSCULOSKELETAL: No obvious deformities. Extremities without clubbing, cyanosis , or edema. Mild tremor of left hand. NEUROLOGICAL: Awake and alert. No obvious cranial nerve deficits. Motor grossly within normal limits. Moves all extremities spontaneously. Normal speech. PSYCHIATRIC: Appropriate mood and affect; insight and judgment normal. Medications and IVs Current Medications Medications (Trade) Dose Ordered Sig/Paige Route Start Time Stop Time Status Last Admin (NS Flush) 2 ml UNSCH PRN FLUSH 06/17/16 00:30 (NS Flush) 2 ml BID FLUSH 06/17/16 09:00 06/23/16 09:01 (Narcan Inj) 0.4 mg UNSCH PRN IV 06/17/16 00:30 (D50w (Vial) Inj) 25 ml UNSCH PRN IV PUSH 06/17/16 00:30 (Glucagon Inj) 1 mg UNSCH PRN OTHER 06/17/16 00:30 (Neurontin) 100 mg TID PO 06/17/16 09:00 06/23/16 09:03 (Isordil) 10 mg DAILY PO 06/17/16 09:00 06/23/16 09:03 (Lopressor) 100 mg BID PO 06/17/16 09:00 06/23/16 09:02 (KCl) 20 meq DAILY PO 06/17/16 09:00 06/23/16 09:03 (Deltasone) 5 mg DAILY PO 06/17/16 09:00 06/23/16 09:03 (Zoloft) 50 mg DAILY PO 06/17/16 09:00 06/23/16 09:02 (Prograf) 0.5 mg HS PO 06/17/16 21:00 06/22/16 21:15 (Prograf) 2 mg DAILY PO 06/17/16 09:00 06/23/16 09:03 (Prograf) 1 mg HS PO 06/17/16 21:00 06/22/16 21:16 (Lactinex) 1 tab DAILY PO 06/17/16 09:00 06/23/16 09:02 (Cellcept) 500 mg Q12H PO 06/17/16 06:00 06/23/16 06:13 (Tylenol) 650 mg Q6H PRN PO 06/17/16 09:30 06/19/16 15:29 (Restoril) 7.5 mg HS PRN PO 06/19/16 13:30 06/19/16 22:05 (Ferrous Sulfate) 325 mg DAILY PO 06/20/16 09:00 06/23/16 09:02 (Sodium Bicarbonate) 650 mg Q12HR PO 06/20/16 12:30 06/23/16 09:02 Enalaprilat 1.25 mg 1.25 mg Q6H PRN IV PUSH 06/20/16 18:00 06/22/16 05:32 Ceftazidime 1000 mg/Sodium Chloride 100 ml @ 200 mls/hr Q24H IV 06/20/16 20:00 06/22/16 21:19 ([facility]) 0 ml @ 0 mls/hr UNSCH OTHER 06/20/16 17:45 (Trimox) 500 mg Q8HR PO 06/20/16 22:00 06/23/16 06:12 (Norvasc) 5 mg DAILY PO 06/22/16 09:45 06/23/16 09:02 Urinary Catheter: No A/P Problem List: (1) UTI (urinary tract infection) ICD Code: N39.0 Status: Acute (2) Sepsis ICD Code: A41.9 Status: Acute (3) CKD (chronic kidney disease) stage 5, GFR less than 15 ml/min ICD Code: N18.5 Status: Chronic (4) DM (diabetes mellitus) ICD Code: E11.9 Status: Chronic Assessment and Plan 76-year-old female with a history of diabetes, osteoarthritis, hypertension, dyslipidemia, and kidney transplant on immunosuppressant therapies presented with: Sepsis with Complicated UTI, Failed Outpatient: on immunosuppression with hx of renal transplant. WBC 11.3, febrile 102.1, HR 99. Lactic acid 0.9. Influenza negative. Blood cultures with NGTD. Urinalysis evidence of UTI. Leukocytosis now resolved. Urine culture with Achromobacter and Enterococcus. ID Consulted, patient now on IV Ceftazidime and po Ampicillin. ID requested repeat urine culture and will d/c on abx based on culture. Repeat culture with NGTD. Will need outpatient IV abx arranged, consult case management. No PICC per nephrology but ok with midline. Acute on Chronic kidney disease, stage 5, history of renal transplant: Upon arrival, Creatinine 3.9, baseline ~2.8. Giving gentle IVF per nephrology. Renal U/S as below. Consulted nephrology, appreciate recommendations. Tacrolimus wnl. Continue patient's home meds, Prograf. Avoid further nephrotoxins. Cleared for discharge by nephrology. Hydronephrosis: Renal U/S shows significant hydronephrosis, new finding compared to 2013 U/S. Consulted urology, renogram with Lasix showed no obstruction. Cleared for discharge by urology. Normocytic Anemia: likely ACD secondary to CKD. Given Epogen by nephrology. Iron studies consistent with iron deficiency, started on supplementation. Monitor CBC. Patient receives Epogen injections every Monday as outpatient. Diabetes, chronic: Monitor Accu-Cheks AC/hS and cover with SSI. Insomnia: Restoril as needed. LLE laceration: S/P sutures and Steri-Strips 2 weeks ago at an outside ED. Removed 6 sutures 06/20. Continue local wound care and clean dressing. Lightheadedness: unclear etiology. CBC/BMP unremarkable, Mag 1.5, given IV Mag Sulfate 1G. Monitor BP, currently stable. Lightheadedness resolved. Essential Tremor: patient with twitching of LUE, appears to be essential tremor , continue to monitor. All other medical conditions stable, continue home meds as appropriate. DVT prophylaxis: SCDs Discussed with RN and Flying Squad Worker. Written by Vicky Brown, acting as scribe for Dr. Medina on 06/23/16 at 08:53. All or portions of this note were transcribed by scribe []. I, Dr. Wm Medina personally performed the history, physical exam, and medical decision making; and confirmed the accuracy of the information in the transcribed note. Authenticated by Dr. Wm Medina on 06/23/16 at 13:57. Discharge Planning Discharge when outpatient antibiotic infusion arrangements made. Vicky Brown PA-C Jun 23, 2016 09:24 Wm Medina MD Jun 23, 2016 13:58
--- NOTE | 2016-06-23 11:27 | HHI.NPPN ---
Subjective Renal Failure: Chronic History of Present Illness 76 Year old female with Kidney Transplant 2004 with CKD/UTI Interval History Doing well. No new concerns. (Noa aVzquez) Review of Systems General Constitutional: Fatigue (Noa Vazquez) Objective Data Data 06/22/16 06/23/16 19:00 07:00 Intake Total 550 ml 240 ml Balance 550 ml 240 ml Intake Oral 550 ml 240 ml # Voids 3 2 # Bowel Movements 1 Vital Signs Date Time Temp Pulse Resp B/P Pulse Ox O2 Delivery O2 Flow Rate FiO2 06/23/16 09:10 62 06/23/16 08:45 95.9 70 20 151/79 98 06/23/16 04:00 97.7 66 18 178/92 97 06/23/16 00:00 96.0 63 20 144/72 96 06/22/16 20:00 97.9 68 18 182/85 98 06/22/16 14:45 61 06/22/16 14:00 95.9 70 19 167/83 100 06/22/16 11:53 96.8 67 16 137/65 98 (Noa Vazquez) -: 06/22/16 0701 06/22/16 0701 Physical Exam General Appearance: Well Developed, Well Nourished, No Acute Distress, Comfortable ( Noa Vazquez) Neck Neck Exam: Neck Supple (Noa Vazquez) Pulmonary Resp Exam: Clear Bilaterally, Breath Sounds Equal (Noa Vazquez) Cardiology CV Exam: Regular, Normal Sinus Rhythm (Noa Vazquez) Gastrointestinal/Abdomen GI Exam: Soft, Non-Tender, Bowel Sounds Present (Noa Vazquez) Musculoskeletal MS Exam: Joints Intact, Normal Tone (Noa Vazquez) Integumentary Skin Exam: Clear, Warm, Dry (Noa Vazquez) Extremeties Extremities Exam: Pedal Pulses Palpable (Noa Vazquez) Neurologic Neuro Exam: Alert (Noa Vazquez) Assessment/Plan Problem List: (1) Acute on chronic kidney failure Plan: She has underlying CKD 4, in March creatinine measured 2.4 at discharge, GFR was 19 may have had a decline since then, her transplant is nearly 15 years old. renal function improving good urine output a this time her GFR is low but stable, we will follow her in 4-6 wks in outpatient setting, she has a geriatric assistant in [place] continue oral bicarb, increased to TID dosage oral intake adequate, no IVF required cleared for discharge once Abx therapy is established avoid a PICC line in this pt; if needed tunneled nichols (IJ) or Midline can be used (2) UTI (urinary tract infection) Plan: ID to determine discharge Abx therapy blood cx negative to date needs IV placement (3) Renal transplant recipient Plan: tacrolimus level acceptable continue rejection medications: tacrolimus, 2 mg in am; 1.5 qhs prednisone 5 mg daily cellcept 500 mg BID monitor renal function (4) Anemia in CKD (chronic kidney disease) Plan: given epogen on oral iron; she is iron deficient but avoid Venofer in light of infection (5) HTN (hypertension) Plan: continue medications as ordered Amlodipine has been added (Noa Vazquez) Plan patient was seen and examined. Avoid Piccline. Can be discharged from renal standpoint. (Jett Diana MD) Noa Vazquez Jun 23, 2016 11:27 Jett Diana MD Jun 24, 2016 15:08
--- NOTE | 2016-06-23 14:19 | HHI.PR ---
Addendum to Inpatient Note Additional Information repeat urine clx noted - negative final complete 2 weeks of iv fortaz and po ampicillin thru 07/03 Esthela Ramirez MD Jun 23, 2016 14:19
--- NOTE | 2016-06-23 14:54 | HHI.FF ---
Face to Face Verification Diagnosis: (1) Urinary tract infection (2) CKD (chronic kidney disease) stage 5, GFR less than 15 ml/min (3) Acute on chronic kidney failure (4) Renal transplant recipient (5) HTN (hypertension) (6) Anemia in CKD (chronic kidney disease) Physical Therapy Order: Evaluate and Treat, Improve ambulation, Strength and gait training Home Health Nursing Order: Medical education Signs/symptoms of disease process Nursing assessment with vital signs IV medication administration I have seen patient Cecile Macias on 06/23/16. My clinical findings support the need for the requested home health care services because: Deconditioned w/ increased weakness Limited ability to care for self Infection w/ risk of complications I certify that my clinical findings support that this patient is homebound because: Unsafe to leave home unassisted Unable to use public transportation Vicky Brown PA-C Jun 23, 2016 14:54
[2016-06-23] MEDS ORDERED: FERR325T PO (14:59)
[2016-06-23] MEDS ORDERED: SODI650T PO (14:59)
[2016-06-23] MEDS ORDERED: AMPI500C8 PO (14:59)
--- NOTE | 2016-06-23 15:06 | HHI.DS ---
cc: Jett Diana MD Discharge Summary Admission Date Jun 17, 2016 at 09:02 Discharge Date: Jun 24, 2016 Admitting Diagnosis febrile illness; UTI (1) UTI (urinary tract infection) ICD Code: N39.0 Diagnosis: Principal (2) Sepsis ICD Code: A41.9 Diagnosis: Principal (3) CKD (chronic kidney disease) stage 5, GFR less than 15 ml/min ICD Code: N18.5 Diagnosis: Secondary (4) DM (diabetes mellitus) ICD Code: E11.9 Diagnosis: Secondary (5) Anemia in CKD (chronic kidney disease) ICD Code: N18.9 Diagnosis: Secondary (6) Renal transplant recipient ICD Code: Z94.0 Diagnosis: Secondary (7) Hydronephrosis ICD Code: N13.30 Diagnosis: Secondary Procedures None. Brief History - From Admission History taken from patient and ED physician. 76 y/o female with history of DM, HTN, osteoarthritis and renal transplant was brought in by her with complaints of headaches, chills, and fatigue. Patient states she has been fatigued with headaches for about a week. Upon assessment patient is found to be very chilly, and requiring many blankets. Currently afebrile. She denies any cough, sob or chest pain. She was seen in March for UTI/Sepsis and was treated with IV Cefepime, urine culture grew klebsiella. [employer] Instructor is Dr. Lima in [place], last admission she was seen in 03/[address] Diana Hemotologist is Dr Eduard Lima CBC/BMP: 06/22/16 0701 06/22/16 0701 Significant Findings Laboratory Tests Test 06/21/16 06/22/16 10:06 07:01 Sodium Level 133 MEQ/L 134 MEQ/L (136-145) (136-145) Carbon Dioxide Level 17.8 MEQ/L 15.6 MEQ/L (21.0-32.0) (21.0-32.0) Blood Urea Nitrogen 32 MG/DL (7-18) 33 MG/DL (7-18) Creatinine 3.54 MG/DL 3.40 MG/DL (0.50-1.00) (0.50-1.00) Estimat Glomerular Filtration 13 ML/MIN (>89) 13 ML/MIN (>89) Rate Albumin 2.6 GM/DL (3.4-5.0) Red Blood Count 2.79 MIL/MM3 (4.00-5.30) Hemoglobin 8.6 GM/DL (11.6-15.3) Hematocrit 26.9 % (35.0-46.0) Mean Corpuscular Hemoglobin 31.9 % Concent (32.0-36.0) Monocytes (%) (Auto) 11.8 % (0.0-8.0) Ovalocytes 1+ (NORMAL) Random Glucose 71 MG/DL (74-106) Calcium Level 8.4 MG/DL (8.5-10.1) Imaging Last Impressions Renal Scan Nuclear Medicine 06/20/16 0000 Signed Impressions: Service Date/Time: Monday, June 20, 2016 11:49 - CONCLUSION: There is no obstruction. Delayed cortical transit. There is minimal sulfur colloid uptake , this can be seen with rejection. Equal to or greater than bone marrow is suspicious for acute rejection. Correlation is suggested. Lamin Brandon MD FACR Renal Ultrasound 06/17/16 0000 Signed Impressions: Service Date/Time: Friday, June 17, 2016 09:29 - CONCLUSION: 1. Hydronephrosis. This is a new finding from the prior study of 2012. 2. Mild increase in echogenicity of the kidney which is a nonspecific finding. Dexter Jane Jr., MD Chest X-Ray 06/16/16 1833 Signed Impressions: Service Date/Time: June 18:52 - CONCLUSION: No appreciable change. Mago Matos MD Head CT 06/16/16 0000 Signed Impressions: Service Date/Time: June 19:08 - CONCLUSION: Unremarkable study except for left eithmoid air cells mucoperiosteal thickening. Mago Matos MD PE at Discharge GENERAL: Well-nourished, well-developed pleasant elderly female patient in NAD. SKIN: Warm and dry. No rash. HEENT: Normocephalic. Atraumatic. Pupils equal and round. NECK: Supple. Trachea midline. CARDIOVASCULAR: Regular rate and rhythm. S1, S2 noted. No murmur appreciated. RESPIRATORY: No accessory muscle use. Clear to auscultation. Breath sounds equal bilaterally. GASTROINTESTINAL: Abdomen soft, non-tender, nondistended. Normoactive bowel sounds x4. MUSCULOSKELETAL: No obvious deformities. Extremities without clubbing, cyanosis , or edema. Mild tremor of left hand. NEUROLOGICAL: Awake and alert. No obvious cranial nerve deficits. Motor grossly within normal limits. Moves all extremities spontaneously. Normal speech. PSYCHIATRIC: Appropriate mood and affect; insight and judgment normal. Hospital Course 76-year-old female with a history of diabetes, osteoarthritis, hypertension, dyslipidemia, and kidney transplant on immunosuppressant therapies presented with: Sepsis with Complicated UTI, Failed Outpatient: on immunosuppression with hx of renal transplant. WBC 11.3, febrile 102.1, HR 99. Lactic acid 0.9. Influenza negative. Blood cultures with NGTD. Urinalysis evidence of UTI. Leukocytosis now resolved. Urine culture with Achromobacter and Enterococcus. ID Consulted, patient on IV Ceftazidime and po Ampicillin til 07/03. Repeat cultures with NGTD. Will need outpatient IV abx arranged, consulted case management. No PICC per nephrology but ok with midline or IJ access. Awaiting vascular access for outpatient IV antibiotics. Acute on Chronic kidney disease, stage 5, history of renal transplant: Upon arrival, Creatinine 3.9, baseline ~2.8. Given gentle IVF per nephrology. Renal U /S as below. Consulted nephrology, appreciate recommendations. Tacrolimus wnl. Continue patient's home meds, Prograf. Avoid further nephrotoxins. Cleared for discharge by nephrology. Hydronephrosis: Renal U/S shows significant hydronephrosis, new finding compared to 2013 U/S. Consulted urology, renogram with Lasix showed no obstruction. Cleared for discharge by urology. Normocytic Anemia: likely ACD secondary to CKD. Given Epogen by nephrology. Iron studies consistent with iron deficiency, started on oral supplementation. Monitor CBC. Patient receives Epogen injections every Monday as outpatient. Diabetes, chronic: Monitor Accu-Cheks AC/hS and cover with SSI. Insomnia: Restoril as needed. LLE laceration: S/P sutures and Steri-Strips 2 weeks ago at an outside ED. Removed 6 sutures 06/20. Continue local wound care and clean dressing. Lightheadedness: unclear etiology. CBC/BMP unremarkable, Mag 1.5, given IV Mag Sulfate 1G. Monitor BP, currently stable. Lightheadedness resolved. Essential Tremor: patient with twitching of LUE, appears to be essential tremor , continue to monitor. All other medical conditions stable, continue home meds as appropriate. DVT prophylaxis: SCDs Pt Condition on Discharge: Stable Discharge Disposition: Disch w/ Home Health Serv Discharge Time: > 30 minutes Discharge Instructions DIET: Follow Instructions for: Heart Healthy Diet Activities you can perform: Regular-No Restrictions Follow up Referrals: Nephrology - 1 Week with Jett Diana MD PCP Follow-up - 1 Week New Medications: Ampicillin (Ampicillin) 500 Mg Cap 500 MG PO BID To complete treatment on 07/03/16 Infection #20 Ref 0 CAP Amlodipine (Norvasc) 5 Mg Tab 5 MG PO DAILY Blood Pressure Management #30 TAB Ferrous Sulfate (Ferrous Sulfate) 325 Mg Tab 325 MG PO DAILY Build Red Blood Cells #30 TAB Sodium Bicarbonate (Sodium Bicarbonate) 650 Mg Tab 650 MG PO TID Electrolyte Replacement #90 TAB Continued Medications: Gabapentin (Gabapentin) 100 Mg Cap 100 MG PO TID #90 Ref 0 CAP Isosorbide Dinitrate (Isosorbide Dinitrate) 10 Mg Tab 10 MG PO DAILY #60 Ref 0 TAB Lactobacillus Acidophilus (Lactinex) 1 Chew 1 TAB CHEW DAILY Nutritional Supplement #30 Ref 0 TAB Metoprolol Tartrate (Metoprolol Tartrate) 100 Mg Tab 100 MG PO BID #60 Ref 0 TAB Mycophenolate (Mycophenolate) 500 Mg Tab 500 MG PO BID Immunosuppression #120 Ref 0 TAB Potassium Chloride ER (K-Tab) 20 Meq Tab 20 MEQ PO DAILY Electrolyte Replacement #30 Ref 0 TAB Prednisone (Prednisone) 5 Mg Tab 5 MG PO DAILY Ref 0 TAB Sertraline (Sertraline) 50 Mg Tab 50 MG PO DAILY #30 Ref 0 TAB Tacrolimus (Tacrolimus) 1 Mg Cap 2 MG PO DAILY IN THE MORNING Prevent Transplant Reject #120 Ref 0 CAP Tacrolimus (Prograf) 1 Mg Cap 1 MG PO HS Prevent Transplant Reject #30 Ref 0 CAP Tacrolimus (Tacrolimus) 0.5 Mg Cap 0.5 MG PO HS Prevent Transplant Reject #60 Ref 0 CAP Vicky Brown PA-C Jun 23, 2016 15:06 Wm Medina MD Jun 24, 2016 15:20 Tacrolimus (Tacrolimus) 0.5 Mg Cap 0.5 MG PO HS Prevent Transplant Reject #60 Ref 0 Vicky Bang PA-C Jun 23, 2016 15:06
[2016-06-23] MEDS: cefTAZidime INJ 1,000 MG in SODIUM CHLORIDE 0.9% INJ 100 ML IV SCH (20:51)
[2016-06-23] MEDS: TACROLIMUS 0.5 MG CAP PO SCH (20:53)
[2016-06-23] MEDS ORDERED: AMPICILLIN 500 MG CAP PO SCH (21:00)
[2016-06-24] VITALS (9 sets, daily range): BP systolic 132–178; BP diastolic 76–86; PULSE 62–68; RESP 16–20; TEMP 96.6–97.7; O2SAT 92–99
[2016-06-24] MEDS: ENALAPRILAT 1.25 MG/ML VIAL IV PUSH PRN (00:51)
[2016-06-24] MEDS ORDERED: AMLO5 PO (05:13)
[2016-06-24] MEDS: MYCOPHENOLATE MOFETIL 500 MG TAB PO SCH ×2 (06:22→16:46)
[2016-06-24] MEDS: INSULIN ASPART SUPPLEMENTAL SCALE SQ SCH ×3 (06:22→16:00)
[2016-06-24] MEDS: ISOSORBIDE DINITRATE 10 MG TAB PO SCH (10:04)
[2016-06-24] MEDS: LACTOBACILLUS ACIDOPHILUS TAB PO SCH (10:04)
[2016-06-24] MEDS: GABAPENTIN 100 MG CAP PO SCH ×3 (10:04→16:46)
[2016-06-24] MEDS: SERTRALINE HCL 50 MG TAB PO SCH (10:04)
[2016-06-24] MEDS: AMOXICILLIN (TRIHYDRATE) 500 MG CAP PO SCH (10:04)
[2016-06-24] MEDS: predniSONE 5 MG TAB PO SCH (10:04)
[2016-06-24] MEDS: METOPROLOL TARTRATE 100 MG TAB PO SCH (10:04)
[2016-06-24] MEDS: SODIUM BICARBONATE 650 MG TAB PO SCH ×3 (10:05→16:46)
[2016-06-24] MEDS: FERROUS SULFATE 325 MG (65 MG ELEMENTAL IRON) TAB PO SCH (10:05)
[2016-06-24] MEDS: POTASSIUM CHLORIDE 20 MEQ CONTROLLED RELEASE TAB PO SCH (10:06)
[2016-06-24] MEDS: SODIUM CHLORIDE 0.9% FLUSH 5 ML FLUSH FLUSH SCH (10:06)
[2016-06-24] MEDS: TACROLIMUS 1 MG CAP PO SCH (10:12)
[2016-06-24 11:50] LABS: PROTHROMBIN TIME - PATIENT 11.6 SEC (9.8-11.6)
--- NOTE | 2016-06-24 13:05 | HHI.PR ---
Subjective Remarks Follow-up for complex UTI. The patient feels tired today. She has no acute complaints. She is going for vascular access today for home IV antibiotics. She wants to go home as soon as possible. Objective Vitals Vital Signs Date Time Temp Pulse Resp B/P Pulse Ox O2 Delivery O2 Flow Rate FiO2 06/24/16 12:26 96.6 67 16 165/80 97 06/24/16 11:51 66 06/24/16 08:32 97.5 67 20 132/76 99 06/24/16 04:58 97.2 65 16 176/85 95 06/24/16 00:27 97.6 62 16 178/83 99 06/23/16 21:03 97.6 80 16 170/78 99 06/23/16 16:24 98.6 74 20 159/74 98 06/23/16 13:25 97.2 69 20 151/79 94 I/O 06/23/16 06/23/16 06/23/16 06/24/16 06/24/16 06/24/16 06:59 14:59 22:59 06:59 14:59 22:59 Intake Total 480 ml 360 ml Balance 480 ml 360 ml Intake Oral 480 ml 360 ml # Voids 3 4 # Bowel Movements 2 Result Diagram: 06/22/16 0701 06/22/16 0701 Imaging Last Impressions Renal Scan Nuclear Medicine 06/20/16 0000 Signed Impressions: Service Date/Time: Monday, June 20, 2016 11:49 - CONCLUSION: There is no obstruction. Delayed cortical transit. There is minimal sulfur colloid uptake , this can be seen with rejection. Equal to or greater than bone marrow is suspicious for acute rejection. Correlation is suggested. Lamin Brandon MD FACR Renal Ultrasound 06/17/16 0000 Signed Impressions: Service Date/Time: Friday, June 17, 2016 09:29 - CONCLUSION: 1. Hydronephrosis. This is a new finding from the prior study of 2012. 2. Mild increase in echogenicity of the kidney which is a nonspecific finding. Dexter Jane Jr., MD Chest X-Ray 06/16/16 5923 Signed Impressions: Service Date/Time: June 18:52 - CONCLUSION: No appreciable change. KByron Matos MD Head CT 06/16/16 0000 Signed Impressions: Service Date/Time: June 19:08 - CONCLUSION: Unremarkable study except for left eithmoid air cells mucoperiosteal thickening. Mago Matos MD Objective Remarks GENERAL: Well-developed well-nourished. In no acute distress. SKIN: Warm and dry. Left arias with clean dressing. HEENT: Normocephalic. Pupils equal and round. Mucous membranes pink and moist. CARDIOVASCULAR: Regular rate and rhythm. No murmur appreciated. RESPIRATORY: No accessory muscle use. Clear to auscultation. Breath sounds equal bilaterally. GASTROINTESTINAL: Abdomen soft, non-tender, nondistended. Bowel sounds x4. MUSCULOSKELETAL: No obvious deformities. No clubbing or cyanosis. No edema. NEUROLOGICAL: Awake and alert. No focal neurological deficits. Moves upper and lower extremities spontaneously. Normal speech. PSYCHIATRIC: Appropriate mood and affect; insight and judgment normal. Procedures None. A/P Problem List: (1) UTI (urinary tract infection) ICD Code: N39.0 Status: Acute (2) Sepsis ICD Code: A41.9 Status: Acute (3) CKD (chronic kidney disease) stage 5, GFR less than 15 ml/min ICD Code: N18.5 Status: Chronic (4) DM (diabetes mellitus) ICD Code: E11.9 Status: Chronic (5) Anemia in CKD (chronic kidney disease) ICD Code: N18.9 Status: Acute (6) Renal transplant recipient ICD Code: Z94.0 Status: Acute (7) Hydronephrosis ICD Code: N13.30 Status: Acute Assessment and Plan 76-year-old female with a history of diabetes, osteoarthritis, hypertension, dyslipidemia, and kidney transplant on immunosuppressant therapies presented with: Sepsis with Complicated UTI, Failed Outpatient: on immunosuppression with hx of renal transplant. WBC 11.3, febrile 102.1, HR 99. Lactic acid 0.9. Influenza negative. Blood cultures with NGTD. Urinalysis evidence of UTI. Leukocytosis now resolved. Urine culture with Achromobacter and Enterococcus. ID Consulted, patient on IV Ceftazidime and po Ampicillin. Repeat cultures with NGTD. Will need outpatient IV abx arranged, consulted case management. No PICC per nephrology but ok with midline or IJ access. Awaiting vascular access for outpatient IV antibiotics. Acute on Chronic kidney disease, stage 5, history of renal transplant: Upon arrival, Creatinine 3.9, baseline ~2.8. Given gentle IVF per nephrology. Renal U /S as below. Consulted nephrology, appreciate recommendations. Tacrolimus wnl. Continue patient's home meds, Prograf. Avoid further nephrotoxins. Cleared for discharge by nephrology. Hydronephrosis: Renal U/S shows significant hydronephrosis, new finding compared to 2013 U/S. Consulted urology, renogram with Lasix showed no obstruction. Cleared for discharge by urology. Normocytic Anemia: likely ACD secondary to CKD. Given Epogen by nephrology. Iron studies consistent with iron deficiency, started on oral supplementation. Monitor CBC. Patient receives Epogen injections every Monday as outpatient. Diabetes, chronic: Monitor Accu-Cheks AC/hS and cover with SSI. Insomnia: Restoril as needed. LLE laceration: S/P sutures and Steri-Strips 2 weeks ago at an outside ED. Removed 6 sutures 06/20. Continue local wound care and clean dressing. Lightheadedness: unclear etiology. CBC/BMP unremarkable, Mag 1.5, given IV Mag Sulfate 1G. Monitor BP, currently stable. Lightheadedness resolved. Essential Tremor: patient with twitching of LUE, appears to be essential tremor , continue to monitor. All other medical conditions stable, continue home meds as appropriate. DVT prophylaxis: SCDs Written by Jeffy Cruz, acting as scribe for Dr. Medina on 06/24/16 at 13:05. All or portions of this note were transcribed by scribe []. I, Dr. Wm Medina personally performed the history, physical exam, and medical decision making; and confirmed the accuracy of the information in the transcribed note. Authenticated by Dr. Wm Medina on 06/24/16 at 15:17. Discharge Planning Discharge with home health IV antibiotic administration after vascular access is placed. Discussed with DAHLIA. Jeffy Cruz Jun 24, 2016 13:05 Wm Medina MD Jun 24, 2016 15:18
[2016-06-24] MEDS ORDERED: fentaNYL CITRATE 250 MCG/5 ML AMP ONE (13:57)
[2016-06-24] MEDS ORDERED: MIDAZOLAM HCL 5 MG/5 ML VIAL ONE (13:57)
[2016-06-24] MEDS ORDERED: LIDOCAINE 1%/EPINEPHrine 1:100,000 SOLN 20 ML VIAL ONE (13:58)
--- NOTE | 2016-06-24 14:38 | PD.RAD ---
Post Procedure Progress Note Pre Procedure Diagnosis: (1) UTI (urinary tract infection) Post Procedure Diagnosis: (1) UTI (urinary tract infection) Procedure Date: Jun 24, 2016 Supervising Radiologist: Scot Stanford Proceduralist/Assist: Kerry Rosales, RT(R)(), Barry Santana RT(R)() Anesthesia: Conscious Sedation Plan of Activity Patient to Unit: Nursing Unit Patient Condition: Fair See PACS Report for procedural detail/treatment Central Venous Access Device Procedure 1 Right Internal Jugular Tunneled Central Line Placement single lumen Scot Stanford MD Jun 24, 2016 14:38
[2016-06-24] MEDS ORDERED: SODIUM CHLORIDE 0.9% FLUSH 5 ML FLUSH IVF PRN (14:45)
--- NOTE | 2016-06-24 17:08 | RADRPT ---
EXAM DATE/TIME: 06/24/2016 13:57 [facility] COMPARISON: No previous studies available for comparison. INDICATIONS : Patient with recent UTI and history of renal disease in need of gilliland catheter placement. MEDICAL HISTORY : HTN, CKD Stage V and h/o Renal Transplant on Immunosuppressant Therapy SURGICAL HISTORY : Renal Transplant ENCOUNTER: Initial ACUITY: >1 year PAIN SCORE: 0/10 FLUORO TIME: 0.4 minutes IMAGE SERIES: SEDATION TIME: 30 minutes ACCESS: Right internal jugular vein SEDATION: 1.) 0.5 mg midazolam (Versed) IV 2.) 25 mcg fentanyl (Sublimaze) IV Prophylactic antibiotics were administered with appropriate pre-procedure timing. Vancomycin within 2 hours of procedure, Ancef (or alternative) within 1 hour of procedure. DEVICE: 1. single lumen 6.6F Gilliland catheter PROCEDURE : 1. Ultrasound-guided puncture of the prescribed vein. 2. Fluoroscopic guidance. 3. Gilliland catheter placement 4. Conscious sedation with continuous EKG and oximetry monitoring. The risks, benefits and alternatives to the procedure were explained and verbal and written consent w as obtained. The site was prepped in sterile fashion. Full sterile technique was used, including ca p, mask, sterile gloves and gown and a large sterile sheet. Hand hygiene and 2% chlorhexidine Betadi ne was utilized per protocol for cutaneous antisepsis with appropriate dry time for site. The skin a nd subcutaneous tissues were infiltrated with local anesthetic solution. With ultrasound and fluoroscopic guidance a dermatotomy was created in the supraclavicular region. A micropuncture set was used to access to the prescribed vein and serial dilatation was performed to a ccept a Gilliland catheter. A subcutaneous tunnel was created and in antegrade fashion the catheter wa s pulled through the tunnel, cut to the appropriate length and place through the sheath. The cathete r was locked with heparin and sutured in place. Conscious sedation was performed with the prescribed dosages and duration as above in the presence of an independent trained radiology nurse to assist in the monitoring of the patient. EKG and oximetry remained stable throughout the procedure. The patient tolerated the procedure well and there were no complications. The patient was sent to post anesthesia recovery in stable condition. CONCLUSION: Uncomplicated Gilliland catheter placement as above. Scot Stanford MD on June 24, 2016 at 17:06 Board Certified Radiologist. This report was verified electronically.
== END 2016-06-24 18:11 | disposition home or self-care (01) | DRG 871 ==
LOC: NEPC 18:04 → NEDA 23:07 → NEPGCP 06-17 02:04 → OBSVTOIN 06-17 09:02 → N05A 06-19 04:59
PROVIDERS: ADMIT Internal Medicine; ATTEND Internal Medicine
PROC: 05H533Z Insertion of Infusion Device into Right Subclavian Vein, Percutaneous Approach (ICD-10-PCS; principal; 2016-06-24)
PROC: B5161ZA Fluoroscopy of Right Subclavian Vein using Low Osmolar Contrast, Guidance (ICD-10-PCS; 2016-06-24)
PROC: 05HM33Z Insertion of Infusion Device into Right Internal Jugular Vein, Percutaneous Approach (ICD-10-PCS; 2016-06-24)
DX: A41.9 Sepsis, unspecified organism (principal); N18.6 End stage renal disease; N17.9 Acute kidney failure, unspecified; E11.22 Type 2 diabetes mellitus with diabetic chronic kidney disease; N13.30 Unspecified hydronephrosis; N39.0 Urinary tract infection, site not specified; I12.0 Hypertensive chronic kidney disease with stage 5 chronic kidney disease or end stage renal disease; Z94.0 Kidney transplant status; E78.5 Hyperlipidemia, unspecified; D63.1 Anemia in chronic kidney disease; E61.1 Iron deficiency; G47.00 Insomnia, unspecified; G25.0 Essential tremor; E03.9 Hypothyroidism, unspecified; I25.10 Atherosclerotic heart disease of native coronary artery without angina pectoris; I25.2 Old myocardial infarction; K21.9 Gastro-esophageal reflux disease without esophagitis; Z87.891 Personal history of nicotine dependence; Z95.5 Presence of coronary angioplasty implant and graft
CPT/HCPCS: 36415; 36558; 70450; 71010; 76776; 76937; 77001; 78708; 80048; 80053; 80069; 80197; 81001; 82550; 82948; 83540; 83550; 83605; 83690; 83735; 84484; 85007; 85025; 85027; 85610; 85730; 87040; 87077; 87086; 87186; 87804; 93005; 96365; 96372; 96375; A9539; A9541; C1751; G0378; G0463; G8987-GP; G8988-GP; J0692; J0713; J0885; J1642; J1815; J1940; J2250; J3010; J3370; J3475; J7030; J7040; J7050; J7507; J7512; J7517; P9612; Q4081

== ENCOUNTER 2016-07-29 11:18 | Inpatient (IN) | payer MEDICARE, OTHER ==
[~2016-07-29] VITALS: Ht 154.9 cm; Wt 52.8 kg
[~2016-07-29 11:18] MED LIST changes: -AMLO10 PO; +AMLO5 PO; +AMPI500C8 PO; -CEFT250T8 PO; +FERR325T PO; +MYCO500T PO; -POTA10TA2 PO; +POTA1TAB4 PO; +SODI650T PO; +TACR0.5C PO; +TACR1 PO; +TACR1CAP PO
[2016-07-29 11:58] VITALS: BP 138/64; PULSE 77; RESP 16; TEMP 100; O2SAT 96
--- NOTE | 2016-07-29 12:13 | PD ---
HPI Chief Complaint: Fall Time Seen by Provider: 12:13 Travel History International Travel<30 days: No Contact w/Intl Traveler<30days: No Traveled to known affect area: No History of Present Illness HPI 76-year-old female with a history of CAD with stents, hyperlipidemia, anemia, diabetes, chronic kidney disease, renal transplant, recurrent urinary tract infections is brought to the emergency department by EMS for evaluation of weakness and fall. The patient states that she fell 2 days ago walking into her bathroom in the dark. States that she could not see and tripped over her own feet landing on her right elbow and right side. Denies head trauma or loss of consciousness. She states that initially her did want to call EMS when she fell but she refused to let him call. States that she's had worsening weakness over the past several days so he called today. States that she's also had a low-grade fever for 2 days. She denies any burning with urination, painful urination, chest pain, shortness of breath, abdominal pain, cough or cold symptoms, nausea, vomiting, diarrhea, constipation. She does have some pain in her right elbow with a hematoma and some pain in her right ribs from the fall on Monday. No other complaints. PFSH Past Medical History Arthritis: Yes Blood Disorders: No Heart Rhythm Problems: No Cancer: No Cardiovascular Problems: Yes High Cholesterol: Yes Chest Pain: No Congestive Heart Failure: No Diabetes: Yes Patient Takes Glucophage: No Diminished Hearing: No Endocrine: Yes Gastrointestinal Disorders: Yes GERD: Yes Genitourinary: Yes Hiatal Hernia: Yes ("double hernia") Hypertension: Yes Immune Disorder: No Insomnia: Yes Musculoskeletal: Yes Neurologic: No Psychiatric: No Reproductive: No Respiratory: No Immunizations Current: Yes Myocardial Infarction: Yes Renal Failure: Yes Thyroid Disease: Yes Menopausal: Yes Past Surgical History Body Medical Devices: 2 stents, "screws in toes" Cardiac Surgery: Yes (2 stents) Coronary Stent: Yes Eye Surgery: Yes (eyelid reconstruction) Genitourinary Surgery: Yes (KIDNEY TRANSPLANT) Other Surgery: Yes Social History Alcohol Use: Yes (WEEKLY) Tobacco Use: No (quit 30 yrs ago) Substance Use: No Allergies-Medications (Allergen,Severity, Reaction): Coded Allergies: Cipro (Verified Allergy, Severe, Itching, 07/29/16) Reported Meds & Prescriptions Reported Meds & Active Scripts Active Norvasc (Amlodipine Besylate) 5 Mg Tab 10 Mg PO DAILY Ampicillin 500 Mg Cap 500 Mg PO BID To complete treatment on 07/03/16 Sodium Bicarbonate 650 Mg Tab 650 Mg PO TID Ferrous Sulfate 325 Mg Tab 325 Mg PO DAILY Lactinex (Lactobacillus Acidophilus) 1 Chew 1 Tab CHEW DAILY Reported Tacrolimus 0.5 Mg Cap 0.5 Mg PO HS Prograf (Tacrolimus) 1 Mg Cap 1 Mg PO HS Tacrolimus 1 Mg Cap 2 Mg PO DAILY IN THE MORNING Mycophenolate (Mycophenolate Mofetil) 500 Mg Tab 500 Mg PO BID K-Tab (Potassium Chloride) 20 Meq Tab 20 Meq PO DAILY Gabapentin 100 Mg Cap 100 Mg PO TID Metoprolol Tartrate 100 Mg Tab 100 Mg PO BID Prednisone 5 Mg Tab 5 Mg PO DAILY Sertraline (Sertraline HCl) 50 Mg Tab 50 Mg PO DAILY Isosorbide Dinitrate 10 Mg Tab 10 Mg PO DAILY Review of Systems Except as stated in HPI: all other systems reviewed are Neg Physical Exam Narrative GENERAL: Well-nourished and well-developed pleasant elderly female patient in no acute distress. SKIN: Warm and dry. HEAD: Normocephalic and atraumatic. EYES: No injection, drainage, or hyphema noted. PERRLA. EOMI. ENT: No nasal drainage noted. Oropharynx is clear. NECK: Supple and the trachea is midline. Patient does have cervical spine tenderness to palpation, full range of motion. CARDIOVASCULAR: Regular rate and rhythm. RESPIRATORY: Breath sounds are equal bilaterally with no accessory muscle use, wheezing, rhonchi, or crackles. Tenderness to palpation of right lower anterior ribs, no obvious deformities or step-offs noted. GASTROINTESTINAL: Abdomen is soft, non-tender, and nondistended. MUSCULOSKELETAL: Hematoma to right elbow with tenderness to palpation, full range of motion in the right elbow. Radial pulses are 2+ bilaterally. No obvious deformities, swelling, cyanosis, or ecchymosis is present throughout all other upper and lower extremities. Patient has full range of motion without any signs of neurovascular compromise. NEUROLOGICAL: Awake, alert, and oriented. Normal speech and gait. Cranial nerves are grossly intact. Data Data Last Documented VS Vital Signs Date Time Temp Pulse Resp B/P Pulse Ox O2 Delivery O2 Flow Rate FiO2 07/29/16 12:21 18 96 Nasal Cannula 2 07/29/16 11:58 100.0 77 138/64 Orders Complete Blood Count With Diff (07/29/16 12:09) Comprehensive Metabolic Panel (07/29/16 12:09) Prothrombin Time / Inr (Pt) (07/29/16 12:09) Act Partial Throm Time (Ptt) (07/29/16 12:09) Lactic Acid Sepsis Protocol (07/29/16 12:09) Urinalysis - C+S If Indicated (07/29/16 12:09) Blood Culture (07/29/16 12:09) Chest, Single Ap (07/29/16 12:09) Blood Glucose (07/29/16 12:09) Ecg Monitoring (07/29/16 12:09) Iv Access Insert/Monitor (07/29/16 12:09) Oximetry (07/29/16 12:09) Cath For Specimen (07/29/16 12:09) Sodium Chlorid 0.9% 500 Ml Inj (Ns 500 M (07/29/16 12:15) Ct Brain W/O Iv Contrast(Rout) (07/29/16 12:09) Ct Cerv Spine W/O Contrast (07/29/16 12:09) Elbow, Complete (4 Vws) (07/29/16 12:09) Urine Culture (07/29/16 12:40) Us Kidney / Transplant (07/29/16 ) Vancomycin Inj (Vancomycin Inj) (07/29/16 14:00) Piperacil-Tazo 2.25 Gm Premix (Zosyn 2.2 (07/29/16 14:00) Sodium Chlor 0.9% 1000 Ml Inj (Ns 1000 M (07/29/16 13:48) Admit Order (Ed Use Only) (07/29/16 13:54) Labs Laboratory Tests Test 07/29/16 12:40 White Blood Count 15.2 TH/MM3 Red Blood Count 2.91 MIL/MM3 Hemoglobin 8.8 GM/DL Hematocrit 28.1 % Mean Corpuscular Volume 96.6 FL Mean Corpuscular Hemoglobin 30.3 PG Mean Corpuscular Hemoglobin 31.4 % Concent Red Cell Distribution Width 16.1 % Platelet Count 168 TH/MM3 Mean Platelet Volume 8.3 FL Neutrophils (%) (Auto) 87.6 % Lymphocytes (%) (Auto) 5.7 % Monocytes (%) (Auto) 6.2 % Eosinophils (%) (Auto) 0.1 % Basophils (%) (Auto) 0.4 % Neutrophils # (Auto) 13.3 TH/MM3 Lymphocytes # (Auto) 0.9 TH/MM3 Monocytes # (Auto) 0.9 TH/MM3 Eosinophils # (Auto) 0.0 TH/MM3 Basophils # (Auto) 0.1 TH/MM3 CBC Comment AUTO DIFF Differential Total Cells 100 Counted Neutrophils % (Manual) 71 % Band Neutrophils % 18 % Lymphocytes % 6 % Monocytes % 4 % Basophils % 1 % Neutrophils # (Manual) 13.5 TH/MM3 Differential Comment FINAL DIFF MANUAL Platelet Estimate NORMAL Platelet Morphology Comment NORMAL Prothrombin Time 10.9 SEC Prothromb Time International 1.0 RATIO Ratio Activated Partial 28.6 SEC Thromboplast Time Urine Color LIGHT-YELLOW Urine Turbidity HAZY Urine pH 6.5 Urine Specific [place] 1.011 Urine Protein 100 mg/dL Urine Glucose (UA) NEG mg/dL Urine Ketones NEG mg/dL Urine Occult Blood TRACE Urine Nitrite POS Urine Bilirubin NEG Urine Urobilinogen LESS THAN 2.0 MG/DL Urine Leukocyte Esterase LARGE Urine RBC 9 /hpf Urine WBC /hpf Urine WBC Clumps MANY Urine Bacteria MANY /hpf Microscopic Urinalysis Comment CATH-CULTURE IND Sodium Level 138 MEQ/L Potassium Level 3.7 MEQ/L Chloride Level 103 MEQ/L Carbon Dioxide Level 23.2 MEQ/L Anion Gap 12 MEQ/L Blood Urea Nitrogen 77 MG/DL Creatinine 4.22 MG/DL Estimat Glomerular Filtration 10 ML/MIN Rate Random Glucose 112 MG/DL Lactic Acid Level 0.6 mmol/L Calcium Level 8.4 MG/DL Total Bilirubin 0.5 MG/DL Aspartate Amino Transf 16 U/L (AST/SGOT) Alanine Aminotransferase 16 U/L (ALT/SGPT) Alkaline Phosphatase 62 U/L Total Protein 6.6 GM/DL Albumin 3.1 GM/DL [facility] Medical Decision Making Medical Screen Exam Complete: Yes Emergency Medical Condition: Yes Differential Diagnosis Sepsis versus urinary tract infection versus dehydration versus electrolyte abnormality versus fracture versus contusion Narrative Course 76-year-old female presents to the emergency department and EMS for evaluation of weakness and fall that occurred 2 days ago. Patient has a fever of 100.0F. Otherwise vital signs are within normal limits. She sustained a mechanical fall 2 days ago injuring her right elbow and right ribs. Her called EMS today for increased weakness. She has a history of complex recurrent urinary tract infections likely secondary to her chronic immunosuppression. She was discharged 06/24/16 from our facility home with IV antibiotics for complex UTI. IV access is obtained, labs been drawn and sent. Patient is placed on cardiac telemetry and pulse oximetry monitoring. She is given IV fluids. CBC shows an elevated white blood cell count of 15.2, anemia with hemoglobin of 8.8, hematocrit 28.1. Band neutrophils 80%. CMP shows elevated creatinine 4.22, GFR 10, BUN 77. This does appear to be elevated from the patient's previous lab values. Lactic acid is within normal limits. Urinalysis shows 100 protein, trace occult blood, positive nitrites, large leukocyte esterase, 9 red blood cells, innumerable white blood cells, many white blood cell clumps, many bacteria. Consistent with a urinary tract infection. X-ray of the right elbow shows soft tissue swelling, no acute bony abnormality. Chest x-ray is negative for any acute abnormalities. Head CT is negative for any acute abnormalities. CT of the cervical spine is negative for any acute abnormalities. The patient is administered renally adjusted doses of vancomycin and Zosyn. She 'll be admitted to medicine service for sepsis, urinary tract infection and acute on chronic renal failure. I discussed the case with my attending physician Dr. Avilez who is aware of the patients history, physical examination findings, and treatment plan. Physician Communication Physician Communication I spoke with the medical insurance coder who agrees to accept the patient under Dr. Cm 's service. I spoke with Dr. Diana colorist photography who agrees to consult on the patient. Diagnosis Primary Impression: Sepsis Qualified Code: A41.9 - Sepsis, due to unspecified organism Additional Impressions: UTI (urinary tract infection) Qualified Code: N39.0 - Urinary tract infection with hematuria, site unspecified Acute on chronic kidney failure Renal transplant recipient Admitting Information Admitting Physician Requests: Admit Priscila Rader Jul 29, 2016 12:13
[2016-07-29] MEDS ORDERED: SODIUM CHLORID 0.9% 500 ML INJ 500 ML IV ONE (12:15)
[2016-07-29 12:21] VITALS: RESP 18; O2SAT 96
[2016-07-29 13:02] LABS: AUTOMATED NEUTROPHIL # 13.3 TH/MM3 (1.8-7.7); BASOPHIL # 0.1 TH/MM3 (0-0.2); BASOPHIL % 0.4 % (0.0-2.0); EOSINOPHIL % 0.1 % (0.0-4.0); HEMATOCRIT 28.1 % (35.0-46.0); LYMPH % 5.7 % (9.0-44.0); LYMPHOCYTE # 0.9 TH/MM3 (1.0-4.8); MEAN CELL VOLUME 96.6 FL (80.0-100.0); MEAN CORPUSCULAR HEMOGLOBIN 30.3 PG (27.0-34.0); MEAN CORPUSCULAR HGB CONC 31.4 % (32.0-36.0); MONO % 6.2 % (0.0-8.0); NEUT % 87.6 % (16.0-70.0); PLATELET COUNT 168 TH/MM3 (150-450); RED BLOOD COUNT 2.91 MIL/MM3 (4.00-5.30); RED CELL DISTRIBUTION WIDTH 16.1 % (11.6-17.2); WHITE BLOOD COUNT 15.2 TH/MM3 (4.0-11.0)
[2016-07-29 13:10] LABS: BACTERIA, URINE MANY /hpf; BLOOD, URINE TRACE (NEG); GLUCOSE,URINE NEG (NEG); HEMO FLAGS AUTO DIFF; KETONE, URINE NEG (NEG); PH, URINE 6.5 (5.0-8.5); URINE COLOR LIGHT-YELLOW (YELLW/STRAW)
[2016-07-29 13:11] LABS: COMMENT (UR) CATH-CULTURE IND; CULTURE IF INDICATED CATH CULTURE IND; NITRITE,URINE POS (NEG)
[2016-07-29 13:15] LABS: APTT (PATIENT) 28.6 SEC (24.3-30.1); PROTHROMBIN TIME - PATIENT 10.9 SEC (9.8-11.6)
--- NOTE | 2016-07-29 13:16 | RADRPT ---
EXAM DATE/TIME: 07/29/2016 13:03 [facility] COMPARISON: CHEST SINGLE AP, June 16, 2016, 18:52. INDICATIONS : Fell 2 days ago. MEDICAL HISTORY : None. SURGICAL HISTORY : None. ENCOUNTER: Initial ACUITY: 2 days PAIN SCORE: 0/10 LOCATION: Bilateral chest FINDINGS: AP view of the chest demonstrates cardiac silhouette size at the upper limits for normal calcificatio n of the aorta. No effusion, consolidation, or pneumothorax is visualized. There is stable calcificat ion overlying the right mid and lower lung zone. Bones and soft tissues demonstrate no acute finding. Coronary stents overlie the heart. CONCLUSION: Stable chest x-ray without an acute finding identified. Jeffrey De Jesus MD on July 29, 2016 at 13:14 Board Certified Radiologist. This report was verified electronically.
--- NOTE | 2016-07-29 13:20 | RADRPT ---
EXAM DATE/TIME: 07/29/2016 12:58 [facility] COMPARISON: No previous studies available for comparison. INDICATIONS : Fell 2 days ago ,right elbow pain. MEDICAL HISTORY : None. SURGICAL HISTORY : None. ENCOUNTER: Initial ACUITY: 2 days PAIN SCORE: Non-responsive. LOCATION: Right elbow FINDINGS: Decreased bone density. No fractures are seen. No effusion. Soft tissue swelling posterior to the elb ow identified. CONCLUSION: Soft tissue swelling. Dmitry Hanna MD on July 29, 2016 at 13:18 Board Certified Radiologist. This report was verified electronically.
[2016-07-29 13:23] LABS: ANION GAP 12 MEQ/L (5-15); AST (GOT) 16 U/L (15-37); BICARBONATE 23.2 MEQ/L (21.0-32.0); BLOOD UREA NITROGEN 77 MG/DL (7-18); CHLORIDE 103 MEQ/L (98-107); GLOMERULAR FILTRATION RATE 10 ML/MIN (>89); POTASSIUM 3.7 MEQ/L (3.5-5.1); SODIUM (NA) 138 MEQ/L (136-145)
[2016-07-29 13:26] LABS: ALKALINE PHOSPHATASE 62 U/L (45-117); ALT (GPT) 16 U/L (10-53); TOTAL BILIRUBIN ADULT 0.5 MG/DL (0.2-1.0)
--- NOTE | 2016-07-29 13:34 | RADRPT ---
EXAM DATE/TIME: 07/29/2016 13:06 [facility] COMPARISON: CT BRAIN W/O CONTRAST, June 16, 2016, 19:08. INDICATIONS : Trauma, fell 2 days ago, feeling lightheaded today. RADIATION DOSE: 56.35 CTDIvol (mGy) MEDICAL HISTORY : Cardiovascular disease. Hypertension. Diabetes mellitus type 2. SURGICAL HISTORY : Kidney transplant. ENCOUNTER: Initial ACUITY: 2 days PAIN SCALE: 0/10 LOCATION: cranial TECHNIQUE: Multiple contiguous axial images were obtained of the head. Using automated exposure control and adj ustment of the mA and/or kV according to patient size, radiation dose was kept as low as reasonably a chievable to obtain optimal diagnostic quality images. FINDINGS: There is mild volume loss and patchy white matter disease characteristic of chronic microvascular isc hemic disease. This is stable. No signs of acute infarct, hemorrhage or mass. Vertebral artery and ca rotid artery calcifications are noted. No fractures. CONCLUSION: No acute disease. Dmitry Hanna MD on July 29, 2016 at 13:32 Board Certified Radiologist. This report was verified electronically.
[2016-07-29] MEDS ORDERED: SODIUM CHLOR 0.9% 1000 ML INJ 1,000 ML IV SCH (13:48)
[2016-07-29 13:49] LABS: BANDS 18 % (0-6); BASOPHILS 1 % (0-2); NEUTROPHIL # MANUAL DIFF 13.5 TH/MM3 (1.8-7.7); POLYS (SEG NEUTROPHILS) 71 % (16-70); WBC DIFF SAMPLE 100
[2016-07-29 13:50] LABS: PLATELET ESTIMATE SMEAR NORMAL (NORMAL); PLATELET MORPHOLOGY NORMAL (NORMAL); SCAN/DIFF FINAL DIFF MANUAL
[2016-07-29] MEDS ORDERED: PIPERACIL-TAZO 2.25 GM PREMIX 50 ML IV ONE (14:00)
[2016-07-29] MEDS ORDERED: VANCOMYCIN INJ 700 MG in SODIUM CHLOR 0.9% 250 ML INJ 250 ML IV ONE (14:00)
--- NOTE | 2016-07-29 14:18 | RADRPT ---
EXAM DATE/TIME: 07/29/2016 13:09 [facility] COMPARISON: No previous studies available for comparison. INDICATIONS : Trauma, fell 2 days ago, feeling lightheaded today. RADIATION DOSE: 33.75 CTDIvol (mGy) MEDICAL HISTORY : Cardiovascular disease. Hypertension. Diabetes mellitus type 2. SURGICAL HISTORY : Kidney transplant. ENCOUNTER: Initial ACUITY: 2 days PAIN SCALE: 0/10 LOCATION: neck TECHNIQUE: Volumetric scanning of the cervical spine was performed. Multiplanar reconstructions in the sagittal, coronal and oblique axial planes were performed. Using automated exposure control and adjustment o f the mA and/or kV according to patient size, radiation dose was kept as low as reasonably achievable to obtain optimal diagnostic quality images. FINDINGS: There is no prevertebral soft tissue swelling or compression deformity. There is severe multilevel de generative disc disease. Grade 1 anterolisthesis of C3 on C4 and grade one retrolisthesis of C5 on C6 noted. There is intervertebral fusion at C67, grade 1 anterolisthesis of C7 on T1. Severe disc space narrowing at C4-5, C5-6, C7-T1 through T2-3. Moderate multilevel facet hypertrophic changes are note d. Multilevel uncovertebral hypertrophy is present. There is mild foraminal narrowing at C2-3 right g reater than left. Moderate to severe foraminal narrowing at C3-4 bilaterally, moderate bilateral fora heather narrowing at C4-5, severe foraminal stenosis at C5-6 through C7-T1. CONCLUSION: Severe degenerative changes without evidence for acute fracture. Dmitry Hanna MD on July 29, 2016 at 14:13 Board Certified Radiologist. This report was verified electronically.
[2016-07-29] MEDS ORDERED: NALOXONE HCL 0.4 MG/ML AMP IV PRN (15:00)
[2016-07-29] MEDS ORDERED: SODIUM CHLORIDE 0.9% FLUSH 10 ML FLUSH IV FLUSH PRN (15:00)
[2016-07-29] MEDS ORDERED: SENNOSIDES 8.6 MG TAB PO PRN (15:00)
--- NOTE | 2016-07-29 15:16 | RADRPT ---
EXAM DATE/TIME: 07/29/2016 14:10 [facility] COMPARISON: US KIDNEY / TRANSPLANT, June 17, 2016, 9:29. INDICATIONS : Rejection. MEDICAL HISTORY : Myocardial infarction. Hypercholesterolemia. Hernia, hiatal. Thyroid disease. HTN. GERD. Renal diseas e and failure. Arthritis. Diabetes. SURGICAL HISTORY : Coronary artery stent. Eyelid reconstruction. Blood transfusions. Pins in toes. Kidney transplant . ENCOUNTER: Subsequent ACUITY: 1 day PAIN SCORE: 2/10 LOCATION: Right lower quadrant MEASUREMENTS: TRANSPLANT KIDNEY: 11.1 x 4.6 x cm LOCATION: Right lower quadrant PREVIOUS ULTRASOUND: Jun 17 2016 PREVIOUS ARCUATE ARTERIES INDEX: Upper - 0.7 Mid - 0.7 Lower - 0.8 ARCUATE ARTERIES RESISTIVE INDEX: Upper - 0.8 Mid - 0.7 Lower - 0.7 MAIN RENAL ARTERY VELOCITY: (cm/sec): 167 cm/s MAIN RENAL VEIN: Patent EXTERNAL ILIAC ARTERY VELOCITY (cm/sec): 119 * NORMAL DOPPLER FINDINGS Arcuate arteries - RI = 0.6 - 0.8 Renal artery = under 200 cm/sec Renal vein = May be monophasic with continuous flow or demonstrate some pulsatility with cardiac cycl e FINDINGS: TRANSPLANT KIDNEY: Normal cortical thickness with stable questionable mild increased echotexture. No hydronephrosis, st one, or mass. However, there is mild fullness of the collecting system. There are 3 anechoic avascul ar lesion is identified measuring up to 15 mm. No peritransplant fluid collection. URINARY BLADDER: No wall thickening or mass. There is debris within the urinary bladder. CONCLUSION: 1. Renal transplant resistive indices remain at the upper limits for normal. Otherwise, renal vascula r assessment is within normal limits. 2. There is mild fullness of the collecting system without significant hydronephrosis. 3. There is debris within the urinary bladder. Jeffrey De Jesus MD on July 29, 2016 at 14:57 Board Certified Radiologist. This report was verified electronically.
--- NOTE | 2016-07-29 15:26 | PD.CONS ---
[facility] Service Nephrology Consult Requested By Reason for Consult Acute on CKD Primary Care Physician Non-Staff History of Present Illness This is a 76 y/o patient known to our service. Hx of living donor renal transplant in 2004, also has CKD 5. We saw her in out clinic last month, at that time creatinine was 3.54, GFR 13. Today her creatinine measures 4.2. Other PMH of HTN, apparently lost renal function due to uncontrolled HTN. She was brought for pain after a fall (on Monday due to weakness), also has been complaining of fever. She has a hx of frequent UTIs with proteus and Klebsiella. She is maintained on antirejection medication for which she reports compliance. The renal US done today shows no hydronephrosis of transplanted kidney. She is a full code. (Noa Vazquez) Review of Systems Constitutional: COMPLAINS OF: Fatigue, Fever, DENIES: Weight loss, Change in appetite Cardiovascular: DENIES: Chest pain, Lower Extremity Edema Gastrointestinal: DENIES: Abdominal pain, Constipation, Nausea, Vomiting Neurologic: DENIES: Abnormal gait (Noa Vazquez) Past Family Social History Allergies: Coded Allergies: Cipro (Verified Allergy, Severe, Itching, 07/29/16) Past Medical History CKD Stage V after renal transplant, Immunosuppressant Therapy Creatinine from June, 3.54, GFR 13 HTN Anemia Past Surgical History Living donor renal transplant 2004 Reported Medications Norvasc (Amlodipine Besylate) 5 Mg Tab 10 Mg PO DAILY Ampicillin 500 Mg Cap 500 Mg PO BID To complete treatment on 07/03/16 Sodium Bicarbonate 650 Mg Tab 650 Mg PO TID Ferrous Sulfate 325 Mg Tab 325 Mg PO DAILY Lactinex (Lactobacillus Acidophilus) 1 Chew 1 Tab CHEW DAILY Tacrolimus 0.5 Mg Cap 0.5 Mg PO HS Prograf (Tacrolimus) 1 Mg Cap 1 Mg PO HS Tacrolimus 1 Mg Cap 2 Mg PO DAILY IN THE MORNING Mycophenolate (Mycophenolate Mofetil) 500 Mg Tab 500 Mg PO BID K-Tab (Potassium Chloride) 20 Meq Tab 20 Meq PO DAILY Gabapentin 100 Mg Cap 100 Mg PO TID Metoprolol Tartrate 100 Mg Tab 100 Mg PO BID Prednisone 5 Mg Tab 5 Mg PO DAILY Sertraline (Sertraline HCl) 50 Mg Tab 50 Mg PO DAILY Isosorbide Dinitrate 10 Mg Tab 10 Mg PO DAILY Active Ordered Medications Current Medications Medications (Trade) Dose Ordered Sig/Paige Route Start Time Stop Time Status Last Admin (NS Flush) 2 ml UNSCH PRN IV FLUSH 07/29/16 15:00 (NS Flush) 2 ml BID IV FLUSH 07/29/16 21:00 (Senokot) 17.2 mg Q12H PRN PO 07/29/16 15:00 (Tylenol) 650 mg Q6H PRN PO 07/29/16 15:00 (Roxicodone) 5 mg Q4H PRN PO 07/29/16 15:00 (Narcan Inj) 0.4 mg UNSCH PRN IV 07/29/16 15:00 Family History No hx of renal disorders Social History She and her are from [place], live here seasonally through august former smoker ETOH very rare retired ambulatory full code (Noa Vazquez) Physical Exam Vital Signs Vital Signs Date Time Temp Pulse Resp B/P Pulse Ox O2 Delivery O2 Flow Rate FiO2 07/29/16 12:21 18 96 Nasal Cannula 2 07/29/16 11:58 100.0 77 16 138/64 96 Physical Exam Elderly female, lying supine, awake/alert but sleepy Neuro: follows commands, no deficit noted CV: S1/S2, Regular no murmurs Lungs: Clear in upper andres, decreased in bases Abd: soft, non tender; transplanted kidney RLQ non tender; she has small palpable mass close to surface, ? foreign body Ext: no edema, pedal pulses normal Laboratory Laboratory Tests Test 07/29/16 12:40 White Blood Count 15.2 Red Blood Count 2.91 Hemoglobin 8.8 Hematocrit 28.1 Mean Corpuscular Volume 96.6 Mean Corpuscular Hemoglobin 30.3 Mean Corpuscular Hemoglobin 31.4 Concent Red Cell Distribution Width 16.1 Platelet Count 168 Mean Platelet Volume 8.3 Neutrophils (%) (Auto) 87.6 Lymphocytes (%) (Auto) 5.7 Monocytes (%) (Auto) 6.2 Eosinophils (%) (Auto) 0.1 Basophils (%) (Auto) 0.4 Neutrophils # (Auto) 13.3 Lymphocytes # (Auto) 0.9 Monocytes # (Auto) 0.9 Eosinophils # (Auto) 0.0 Basophils # (Auto) 0.1 CBC Comment AUTO DIFF Differential Total Cells 100 Counted Neutrophils % (Manual) 71 Band Neutrophils % 18 Lymphocytes % 6 Monocytes % 4 Basophils % 1 Neutrophils # (Manual) 13.5 Differential Comment FINAL DIFF MANUAL Platelet Estimate NORMAL Platelet Morphology Comment NORMAL Prothrombin Time 10.9 Prothromb Time International 1.0 Ratio Activated Partial 28.6 Thromboplast Time Urine Color LIGHT-YELLOW Urine Turbidity HAZY Urine pH 6.5 Urine Specific [place] 1.011 Urine Protein 100 Urine Glucose (UA) NEG Urine Ketones NEG Urine Occult Blood TRACE Urine Nitrite POS Urine Bilirubin NEG Urine Urobilinogen LESS THAN 2.0 Urine Leukocyte Esterase LARGE Urine RBC 9 Urine WBC Urine WBC Clumps MANY Urine Bacteria MANY Microscopic Urinalysis Comment CATH-CULTURE IND Sodium Level 138 Potassium Level 3.7 Chloride Level 103 Carbon Dioxide Level 23.2 Anion Gap 12 Blood Urea Nitrogen 77 Creatinine 4.22 Estimat Glomerular Filtration 10 Rate Random Glucose 112 Lactic Acid Level 0.6 Calcium Level 8.4 Total Bilirubin 0.5 Aspartate Amino Transf 16 (AST/SGOT) Alanine Aminotransferase 16 (ALT/SGPT) Alkaline Phosphatase 62 Total Protein 6.6 Albumin 3.1 Date/Time Procedure Status Source Growth 07/29/16 12:40 Urine Culture Received Urine Catheterized Urine Pending 07/29/16 12:40 Aerobic Blood Culture Received Blood Peripheral Pending 07/29/16 12:40 Anaerobic Blood Culture Received Blood Peripheral Pending (Noa Vazqeuz) Result Diagram: 07/29/16 1240 07/29/16 1240 Imaging Last [address] 07/29/16 1209 Signed Impressions: Service Date/Time: Friday, July 29, 2016 13:06 - CONCLUSION: No acute disease. Dmitry Hanna MD Elbow X-Ray 07/29/16 1209 Signed Impressions: Service Date/Time: Friday, July 29, 2016 12:58 - CONCLUSION: Soft tissue swelling. Dmitry Hanna MD Chest X-Ray 07/29/16 1209 Signed Impressions: Service Date/Time: Friday, July 29, 2016 13:03 - CONCLUSION: Stable chest x-ray without an acute finding identified. Jeffrey De Jesus MD Cervical Spine CT 07/29/16 1209 Signed Impressions: Service Date/Time: Friday, July 29, 2016 13:09 - CONCLUSION: Severe degenerative changes without evidence for acute fracture. Dmitry Hanna MD (Noa Vazquez) Assessment and Plan Problem List: (1) Acute on chronic kidney failure Plan: Baseline CKD 5, creatinine 3.54, GFR 13 ALEXIA may be prerenal from dehydration K and C02 are unremarkable US negative for hydronephrosis she is on sodium bicarbonate at home, not required at this time ordered IVF, continue and monitor effect monitor urine output given vancomycin and Zosyn for UTI avoid nephrotoxic substances, renally dose medications she is nearing the need for dialysis, but is reluctant to begin the process again; we will discuss with the pt again (2) Anemia in CKD (chronic kidney disease) Plan: Hb 8.8, will give a dose of Epogen (3) HTN (hypertension) Plan: continue home medications avoid DON in light of ALEXIA (4) UTI (urinary tract infection) Plan: with fever hx of multiple UTIs on vancomycin and Zosyn (5) Renal transplant recipient Plan: continue immunosuppression with prednisone 5 mg tacrolimus 1 mg po BID cellcept 500 mg po BID check tacrolimus level on 07/31 in AM (Noa Vazquez) Assessment and Plan patient was seen and examined. Poor renal function to begin with. Possible UTI ( recurrent) in a patient with history of renal transplant. Cautious IVF. Monitor urine output and renal function. Patient is reluctant to restart dialysis. (Jett Diana MD) Problem Qualifiers (1) UTI (urinary tract infection): Qualified Code: N39.0 - Urinary tract infection with hematuria, site unspecified Noa Vazquez Jul 29, 2016 15:26 Jett Diana MD Jul 29, 2016 16:27
[2016-07-29] MEDS ORDERED: Vancomycin Consult Pharmacy 1 EA OTHER SCH (15:30)
--- NOTE | 2016-07-29 16:23 | HHI.HP ---
HPI Service Family Medicine Primary Care Physician Non-Staff Admission Diagnosis Sepsis, UTI, Acute on Chronic Renal Failure, Hx of Renal Transplant Diagnoses: International Travel<30 Days: No Contact w/Intl Traveler<30days: No Known Affected Area: No History of Present Illness 76 yo female with h/o CKD s/p renal transplant, now with repeat CKD not on HD, HTN, h/o RI s/p stenting presenting after a fall with subsequent h/o weakness for the last two days. Two days ago she fell at night time when she had to get up to pee. She does not remember anything about the event, but thinks she may have tripped over her feet. She does not recall feeling lightheaded. She denies current CP/SOB. She was not having pain after the fall so did not seek care, though her right elbow did get very swollen. After the fall however she continued to experience fatigue for the last two days. Still no CP/SOB. No dysuria, no abdominal pain. Endorses subjective fever. No sick contacts at home. (Husam Weaver MD R1) Review of Systems ROS Limitations: Poor Historian Constitutional: COMPLAINS OF: Fever Respiratory: DENIES: Cough, Wheezing, Shortness of breath Cardiovascular: DENIES: Chest pain, Dyspnea on Exertion, Lower Extremity Edema Gastrointestinal: DENIES: Abdominal pain, Constipation, Diarrhea, Nausea, Vomiting Genitourinary: DENIES: Abnormal vaginal bleeding Musculoskeletal: DENIES: Muscle aches Integumentary: DENIES: Rash Hematologic/lymphatic: DENIES: Bruising Immunologic/allergic: DENIES: Eczema Neurologic: DENIES: Headache, Localized weakness, Seizures Psychiatric: DENIES: Confusion, Depression (Husam Weaver MD R1) Past Family Social History Past Medical History Renal transplant CKD not on HD RI s/p stenting HTN Denies h/o heart failure, arrhythmia (Husam Weaver MD R1) Allergies: Coded Allergies: Cipro (Verified Allergy, Severe, Itching, 07/29/16) Physical Exam Vital Signs Vital Signs Date Time Temp Pulse Resp B/P Pulse Ox O2 Delivery O2 Flow Rate FiO2 07/29/16 12:21 18 96 Nasal Cannula 2 07/29/16 11:58 100.0 77 16 138/64 96 Physical Exam GENERAL: WDWN elderly white female lying in bed asleep SKIN: Large ecchymoses over dorsum of hands and forearms. No evidence of decubitus ulcers. HEAD: NC/AT EYES: PERRL. No conjunctival erythema or drainage. ENT: MMM. OP without erythema or exudate. NECK: No JVD. Carotid bruits present bilaterally. CARDIOVASCULAR: NRRR, normal S1/S2. II/ systolic murmur heard best in aortic and mitral areas. No S3/S4. RESPIRATORY: CTAB. No crackles or wheezes. GASTROINTESTINAL: Scar from prior renal transplant. Abdomen soft, non-tender, nondistended. No hepato-splenomegaly. Transplanted kidney palpable RLQ, non- tender. No guarding. MUSCULOSKELETAL: No peripheral edema of ankles. R elbow with significant hematoma, point tenderness over olecranon. NEUROLOGICAL: Drowsy, falls asleep intermittently during interview. Awakens to voice, light touch. Cranial nerves II through XII intact. Moves all extremities. Grossly nonfocal. Laboratory Laboratory Tests Test 07/29/16 12:40 White Blood Count 15.2 Red Blood Count 2.91 Hemoglobin 8.8 Hematocrit 28.1 Mean Corpuscular Volume 96.6 Mean Corpuscular Hemoglobin 30.3 Mean Corpuscular Hemoglobin 31.4 Concent Red Cell Distribution Width 16.1 Platelet Count 168 Mean Platelet Volume 8.3 Neutrophils (%) (Auto) 87.6 Lymphocytes (%) (Auto) 5.7 Monocytes (%) (Auto) 6.2 Eosinophils (%) (Auto) 0.1 Basophils (%) (Auto) 0.4 Neutrophils # (Auto) 13.3 Lymphocytes # (Auto) 0.9 Monocytes # (Auto) 0.9 Eosinophils # (Auto) 0.0 Basophils # (Auto) 0.1 CBC Comment AUTO DIFF Differential Total Cells 100 Counted Neutrophils % (Manual) 71 Band Neutrophils % 18 Lymphocytes % 6 Monocytes % 4 Basophils % 1 Neutrophils # (Manual) 13.5 Differential Comment FINAL DIFF MANUAL Platelet Estimate NORMAL Platelet Morphology Comment NORMAL Prothrombin Time 10.9 Prothromb Time International 1.0 Ratio Activated Partial 28.6 Thromboplast Time Urine Color LIGHT-YELLOW Urine Turbidity HAZY Urine pH 6.5 Urine Specific [place] 1.011 Urine Protein 100 Urine Glucose (UA) NEG Urine Ketones NEG Urine Occult Blood TRACE Urine Nitrite POS Urine Bilirubin NEG Urine Urobilinogen LESS THAN 2.0 Urine Leukocyte Esterase LARGE Urine RBC 9 Urine WBC Urine WBC Clumps MANY Urine Bacteria MANY Microscopic Urinalysis Comment CATH-CULTURE IND Sodium Level 138 Potassium Level 3.7 Chloride Level 103 Carbon Dioxide Level 23.2 Anion Gap 12 Blood Urea Nitrogen 77 Creatinine 4.22 Estimat Glomerular Filtration 10 Rate Random Glucose 112 Lactic Acid Level 0.6 Calcium Level 8.4 Total Bilirubin 0.5 Aspartate Amino Transf 16 (AST/SGOT) Alanine Aminotransferase 16 (ALT/SGPT) Alkaline Phosphatase 62 Total Protein 6.6 Albumin 3.1 Date/Time Procedure Status Source Growth 07/29/16 12:40 Urine Culture Received Urine Catheterized Urine Pending 07/29/16 12:40 Aerobic Blood Culture Received Blood Peripheral Pending 07/29/16 12:40 Anaerobic Blood Culture Received Blood Peripheral Pending (Husam Weaver MD R1) Result Diagram: 07/29/16 1240 07/29/16 1240 Imaging Last Impressions Head CT 07/29/16 1209 Signed Impressions: Service Date/Time: Friday, July 29, 2016 13:06 - CONCLUSION: No acute disease. Dmitry Hanna MD Elbow X-Ray 07/29/16 1209 Signed Impressions: Service Date/Time: Friday, July 29, 2016 12:58 - CONCLUSION: Soft tissue swelling. Dmitry Hanna MD Chest X-Ray 07/29/16 1209 Signed Impressions: Service Date/Time: Friday, July 29, 2016 13:03 - CONCLUSION: Stable chest x-ray without an acute finding identified. Jeffrey De Jesus MD Cervical Spine CT 07/29/16 1209 Signed Impressions: Service Date/Time: Friday, July 29, 2016 13:09 - CONCLUSION: Severe degenerative changes without evidence for acute fracture. Dmitry Hanna MD Renal Ultrasound 07/29/16 0000 Signed Impressions: Service Date/Time: Friday, July 29, 2016 14:10 - CONCLUSION: 1. Renal transplant resistive indices remain at the upper limits for normal. Otherwise, renal vascular assessment is within normal limits. 2. There is mild fullness of the collecting system without significant hydronephrosis. 3. There is debris within the urinary bladder. Jeffrey De Jesus MD (Husam Weaver MD R1) Septic Shock Reassessment Heart: Regular rate and rhythm, Murmur Lungs: Clear Skin: Warm Peripheral Pulses: Bounding Right Dorsalis Pedis Bounding Left Dorsalis Pedis (Husam Weaver MD R1) Assessment and Plan Assessment and Plan 76 yo female with h/o HTN, Kidney transplant, CKD not on dialysis presenting with: (Husam Weaver MD R1) Attending Attestation Patient seen, examined, and discussed with resident team. I agree with assessment and management as documented and discussed with me. The patient has been seen and examined. The chart and all resident notes have been reviewed. I agree that inpatient care is appropriate and that a two midnight stay is expected for the reasons documented in the resident history and physical. I have discussed this with the resident and certify the resident s order for inpatient admission. Cecile Macias is a 76yo lady with a complicated medical history admitted after a fall and found to have UTI and acute on chronic kidney failure. She has a transplanted kidney as well. Appreciate nephrology. (Marilu Cm MD) Problem List: (1) Sepsis Status: Acute Plan: Patient with fatigue, subjective fever. T 100.0 in ER, WBC ~15, mild tachycardia on arrival. Likely source urinary (UA showing many WBC and clumps). - Given h/o UTIs with resistant organisms as well as Proteus, covered with vancomycin and Zosyn - Continue vancomycin renally dosed per pharmacy - Continue Zosyn 2.25 gm IV Q6H (renal dosing for CrCl < 10 that provides anti- pseudomonal coverage) - F/u blood Cx - F/u urine Cx - Telemetry - Vitals Q4H - S/p 2L bolus in ER, additional fluids per nephrology recommendations (see below) (2) UTI (urinary tract infection) Status: Acute Plan: UA showing many WBC with clumps, likely pyelonephritis - Abx as above - Monitor renal function - Fluids per nephrology (see below) - S/p 2 L bolus in ER (3) Acute on chronic kidney failure Status: Acute Plan: Baseline Cr approx 3, brandon to 4.22 on admission. Followed by nephrology as outpatient. Per nephrology, patient trending toward dialysis. - Nephrology consulted, appreciate assistance - D5 1/2 NS at 60 cc/hr - Renally dose medications - Avoid nephrotoxic agents - Electrolytes stable, monitor and address PRN (especially K, bicarb) - Track renal function daily (4) Fall Status: Acute Plan: 2 days ago, questionable syncope. Per patient likely mechanical fall but patient is poor historian. Exam suggests aortic stenosis CT head negative for bleeding XR R elbow showing hematoma but no fracture - Echo to evaluate for aortic stenosis - Carotid U/S to evaluate bruit - Telemetry - Given timecourse of fall, unlikely to benefit from w/u for RI; continue CAD treatment as below (5) Heart murmur Status: Acute Plan: Likely aortic stenosis. - See w/u above under "Fall" (6) Kidney transplant recipient Status: Chronic Plan: Nephrology consulted, appreciate assistance - prednisone 5 mg - tacrolimus 1 mg po BID - cellcept 500 mg po BID (7) Anemia in CKD (chronic kidney disease) Status: Chronic Plan: Hgb 8.8, likely patient's baseline given renal disease, though she does have active hematoma at the elbow and several ecchymoses - pharmacologic DVT ppx contraindicated - track Hgb daily - if other signs of bleeding develop, additional w/u as indicated - Continue home iron (8) HTN (hypertension) Status: Acute Plan: BP stable - Continue home amlodipine (9) Depression Status: Acute Plan: Stable - Continue home Zoloft (10) CAD (coronary artery disease) Status: Acute Plan: Symptoms stable - Continue home nitrite, beta axel - Continue home aspirin 81 mg PO daily - Telemetry (11) FEN/PPX Status: Acute Plan: Fluids: D5 1/2 NS at 60 cc/hr Elecs: Monitor and replete PRN Nutrition: Diet Renal DVT: ppx contraindicated due to hematoma sdw Dr. Vu, Dr. Cm (Husam Weaver MD R1) Physician Certification 2 Midnight Certification Type: Admission for Inpatient Services Order for Inpatient Services The services are ordered in accordance with Medicare regulations or non- Medicare payer requirements, as applicable. In the case of services not specified as inpatient-only, they are appropriately provided as inpatient services in accordance with the 2-midnight benchmark. Estimated LOS (days): 2 days is the estimated time the patient will need to remain in the hospital, assuming treatment plan goals are met and no additional complications. Post-Hospital Plan: Home Health (Husam Weaver MD R1) Problem Qualifiers (1) Sepsis: Qualified Code: A41.9 - Sepsis, due to unspecified organism (2) UTI (urinary tract infection): Qualified Code: N39.0 - Urinary tract infection with hematuria, site unspecified (3) Fall: Qualified Code: W19.XXXA - Fall, initial encounter (4) HTN (hypertension): Qualified Code: I10 - Essential hypertension (5) Depression: Qualified Code: F32.9 - Depression, unspecified depression type (6) CAD (coronary artery disease): Qualified Code: I25.10 - Coronary artery disease involving [place] coronary artery of [place] heart without angina pectoris Husam Weaver MD R1 Jul 29, 2016 16:22 Marilu Cm MD Jul 29, 2016 21:46
[2016-07-29 16:24] LABS: MAGNESIUM 2.2 MG/DL (1.5-2.5)
[2016-07-29 16:58] VITALS: BP 134/72; TEMP 98.3
--- NOTE | 2016-07-29 16:59 | RADRPT ---
EXAM DATE/TIME: 07/29/2016 16:06 [facility] COMPARISON: No previous studies available for comparison. INDICATIONS : Syncope. MEDICAL HISTORY : Gastroesophageal reflux disease. Hypercholesterolemia. Renal failure, chronic. Thyroid disease. Hiata l hernia. Arthritis. Diabetes. Myocardial infarction. Blood transfusion. SURGICAL HISTORY : Coronary artery stent. Renal transplant. Toe surgery. Eyelid reconstruction. ENCOUNTER: Initial ACUITY: 1 day PAIN SCORE: 0/10 LOCATION: Bilateral neck PEAK SYSTOLIC VELOCITIES (cm/sec): ICA/CCA RATIO: Right: 0.6 Left: 2.4 ICA: Right: 98 Left: 146 CCA: Right: 169 Left: 61 ECA: Right: 148 Left: 179 VERTEBRAL: Right: 74 antegrade Left: 119 antegrade Elevated flow velocities and ICA/CCA ratios have been found to correlate with increased degrees of vessel stenosis, calculated as percentage of diameter relative to a normal segment of distal ICA/CCA FINDINGS: There is elevated velocity and ratio on the left of the internal carotid artery with an estimated 50- 69% stenosis. Grayscale images demonstrate moderate callus plaquing at the carotid bulb. There is ant egrade flow in the left vertebral artery. On the right, there is moderate calcific plaquing of the pr oximal external carotid artery and internal carotid artery without evidence for hemodynamically signi ficant stenosis. There is antegrade flow in the right vertebral artery. CONCLUSION: Atherosclerosis without evidence of hemodynamically significant stenosis. Dmitry Hanna MD on July 29, 2016 at 16:56 Board Certified Radiologist. This report was verified electronically.
[2016-07-29 19:00] VITALS: BP 170/81; PULSE 86; RESP 20; TEMP 99; O2SAT 97
[2016-07-29] MEDS: GABAPENTIN 100 MG CAP PO SCH (19:09)
[2016-07-29] MEDS: TACROLIMUS 1 MG CAP PO SCH (19:10)
[2016-07-29] MEDS: MYCOPHENOLATE MOFETIL 500 MG TAB PO SCH (19:10)
[2016-07-29] MEDS: DEXT 5%-NACL 0.9% 1000 ML INJ 1,000 ML IV SCH (19:11)
[2016-07-29 20:00] VITALS: BP 183/83; PULSE 86; RESP 18; TEMP 99; O2SAT 97
[2016-07-29] MEDS: METOPROLOL TARTRATE 100 MG TAB PO SCH (20:57)
[2016-07-29] MEDS: SODIUM CHLORIDE 0.9% FLUSH 10 ML FLUSH IV FLUSH SCH (20:57)
[2016-07-29] MEDS: PIPERACIL-TAZO 2.25 GM PREMIX 50 ML IV SCH (20:57)
[2016-07-30] VITALS (12 sets, daily range): BP systolic 111–176; BP diastolic 56–84; PULSE 63–81; RESP 16–18; TEMP 96.1–102.3; O2SAT 92–98
[2016-07-30] MEDS ORDERED: cloNIDine HCL 0.1 MG TAB PO PRN (00:45)
[2016-07-30] MEDS: ACETAMINOPHEN 325 MG TAB PO PRN ×2 (00:54→08:51)
[2016-07-30] MEDS: PIPERACIL-TAZO 2.25 GM PREMIX 50 ML IV SCH ×4 (01:01→22:38)
[2016-07-30] MEDS: TACROLIMUS 1 MG CAP PO SCH ×2 (05:21→16:55)
[2016-07-30] MEDS: MYCOPHENOLATE MOFETIL 500 MG TAB PO SCH ×2 (05:21→16:55)
--- NOTE | 2016-07-30 08:23 | HHI.FPPN ---
Subjective Remarks Patient seen and examined. She had a fever with Tmax of 102.3 overnight. Other vital signs stable. She denies any specific complaints this morning. (Mckenzie Navarro MD R3) Objective Vitals Vital Signs Date Time Temp Pulse Resp B/P Pulse Ox O2 Delivery O2 Flow Rate FiO2 07/30/16 05:06 99.2 80 17 118/57 96 07/30/16 03:01 98.7 07/30/16 02:10 150/67 07/30/16 00:58 102.3 81 17 170/78 96 07/29/16 20:00 99.0 86 18 183/83 97 07/29/16 19:00 99.0 86 20 170/81 97 07/29/16 16:58 98.3 134/72 98 Nasal Cannula 2 07/29/16 12:21 18 96 Nasal Cannula 2 07/29/16 11:58 100.0 77 16 138/64 96 I/O 07/29/16 07/29/16 07/29/16 07/30/16 07/30/16 07/30/16 07:00 15:00 23:00 07:00 15:00 23:00 Intake Total 940 ml Output Total 1950 ml Balance -1010 ml Intake Oral 120 ml IV Total 820 ml Output Urine Total 1950 ml (Mckenzie Navarro MD R3) Result Diagram: 07/29/16 1240 07/29/16 1240 Imaging Last Impressions Head CT 07/29/16 1209 Signed Impressions: Service Date/Time: Friday, July 29, 2016 13:06 - CONCLUSION: No acute disease. Dmitry Hanna MD Elbow X-Ray 07/29/16 120 Signed Impressions: Service Date/Time: Friday, July 29, 2016 12:58 - CONCLUSION: Soft tissue swelling. Dmitry Hanna MD Chest X-Ray 07/29/16 1209 Signed Impressions: Service Date/Time: Friday, July 29, 2016 13:03 - CONCLUSION: Stable chest x-ray without an acute finding identified. Jeffrey De Jesus MD Cervical Spine CT 07/29/16 1209 Signed Impressions: Service Date/Time: Friday, July 29, 2016 13:09 - CONCLUSION: Severe degenerative changes without evidence for acute fracture. Dmitry Hanna MD Renal Ultrasound 07/29/16 0000 Signed Impressions: Service Date/Time: Friday, July 29, 2016 14:10 - CONCLUSION: 1. Renal transplant resistive indices remain at the upper limits for normal. Otherwise, renal vascular assessment is within normal limits. 2. There is mild fullness of the collecting system without significant hydronephrosis. 3. There is debris within the urinary bladder. Jeffrey De Jesus MD Carotid Artery Ultrasound 07/29/16 0000 Signed Impressions: Service Date/Time: Friday, July 29, 2016 16:06 - CONCLUSION: Atherosclerosis without evidence of hemodynamically significant stenosis. Dmitry Hanna MD Objective Remarks GENERAL: WDWN elderly white female lying in bed asleep SKIN: Large ecchymoses over dorsum of hands and forearms. HEAD: NC/AT EYES: PERRL. No conjunctival erythema or drainage. ENT: MMM. OP without erythema or exudate. NECK: No JVD. Carotid bruits present bilaterally. CARDIOVASCULAR: NRRR, normal S1/S2. II/ systolic murmur heard best in aortic and mitral areas. No S3/S4. RESPIRATORY: CTAB. No crackles or wheezes. GASTROINTESTINAL: Scar from prior renal transplant. Abdomen soft, non-tender, nondistended. No hepato-splenomegaly. Transplanted kidney palpable RLQ, non- tender. No guarding. MUSCULOSKELETAL: No peripheral edema of ankles. R elbow with significant hematoma, point tenderness over olecranon, slightly improved since admission.. NEUROLOGICAL: More awake and alert this morning. Answers questions appropriately. (Mckenzie Navarro MD R3) A/P Assessment and Plan 76 yo female with h/o HTN, Kidney transplant, CKD not on dialysis presenting with: Discharge Planning Discharge pending clinical improvement, unsure of timeframe. (Mckenzie Navarro MD R3 ) Attending Attestation Patient seen, examined and discussed with resident team. I agree with assessment and management as documented and discussed with me. Pt appears more clinically stable and more alert today. She reports abdominal pain is improving. Fever overnight as documented. Consult ID in light of UTI, sepsis, and immunocompromise from kidney transplant. (Marilu Cm MD) Problem List: (1) Sepsis Status: Acute Plan: Febrile up to 102.3F overnight. Leukocytosis stable at 15.1. Lactic acid 0.6-->1.3 this morning. - Given h/o UTIs with resistant organisms as well as Proteus, Achrombacter, Enterococcus, and Klebsiella - Current on Vancomycin renally dosed per pharmacy and Zosyn 2.25 gm IV Q6H ( renal dosing for CrCl < 10 that provides anti-pseudomonal coverage). However given history of complicated UTIs as well as MDRO, will consult ID for further recommendations on antibiotic treatment - Blood and urine cx pending - Telemetry - Continue D5 1/2NS at 60cc/hr per nephrology. (2) UTI (urinary tract infection) Status: Acute Plan: UA showing many WBC with clumps, likely pyelonephritis. U/S: Renal transplant resistant indices remain at the upper limit of normal. Renal vascular assessment is within normal limits. Mild fullness of collecting system without significant hydronephrosis. There is debris within the urinary bladder. - Abx as above - Monitor renal function - Fluids per nephrology (see below) - S/p 2 L bolus in ER (3) Acute on chronic kidney failure Status: Acute Plan: Baseline Cr approx 3, brandon to 4.22 on admission. Slightly improved to 4.17. Followed by nephrology as outpatient. Per nephrology, patient trending toward dialysis. - Nephrology consulted, appreciate assistance - D5 1/2 NS at 60 cc/hr - Renally dose medications - Avoid nephrotoxic agents - Electrolytes stable, monitor and address PRN (especially K, bicarb) - Track renal function daily (4) Fall Status: Acute Plan: 2 days ago, questionable syncope. Per patient likely mechanical fall. Exam significant for 2/6 RAO suggestive of aortic stenosis and carotid bruits CT head negative for bleeding XR R elbow showing hematoma but no fracture - Echo to evaluate for aortic stenosis pending - Carotid U/S was unremarkable - Telemetry (5) Heart murmur Status: Acute Plan: Likely aortic stenosis. - See w/u above under "Fall" (6) Kidney transplant recipient Status: Chronic Plan: Nephrology consulted, appreciate assistance - prednisone 5 mg - tacrolimus 1 mg po BID. Tacrolimus level pending - cellcept 500 mg po BID (7) Anemia in CKD (chronic kidney disease) Status: Chronic Plan: Hgb stable, likely patient's baseline given renal disease - pharmacologic DVT ppx contraindicated - track Hgb daily - if other signs of bleeding develop, additional w/u as indicated - Continue home iron (8) HTN (hypertension) Status: Acute Plan: BP stable - Continue home amlodipine (9) Depression Status: Acute Plan: Stable - Continue home Zoloft (10) CAD (coronary artery disease) Status: Acute Plan: Symptoms stable - Continue home nitrite, beta axel - Continue home aspirin 81 mg PO daily - Telemetry (11) FEN/PPX Status: Acute Plan: Fluids: D5 1/2 NS at 60 cc/hr Elecs: Monitor and replete PRN Nutrition: Diet Renal DVT: ppx contraindicated due to hematoma sdw Dr. Cm and Dr. Weaver (Mckenzie Navarro MD R3) Problem Qualifiers (1) Sepsis: Qualified Code: A41.9 - Sepsis, due to unspecified organism (2) UTI (urinary tract infection): Qualified Code: N39.0 - Urinary tract infection with hematuria, site unspecified (3) Fall: Qualified Code: W19.XXXA - Fall, initial encounter (4) HTN (hypertension): Qualified Code: I10 - Essential hypertension (5) Depression: Qualified Code: F32.9 - Depression, unspecified depression type (6) CAD (coronary artery disease): Qualified Code: I25.10 - Coronary artery disease involving [place] coronary artery of [place] heart without angina pectoris Mckenzie Navarro MD R3 Jul 30, 2016 08:23 Marilu Cm MD Jul 30, 2016 13:38
[2016-07-30 08:33] LABS: AUTOMATED NEUTROPHIL # 13.3 TH/MM3 (1.8-7.7); BASOPHIL # 0.1 TH/MM3 (0-0.2); BASOPHIL % 0.4 % (0.0-2.0); EOSINOPHIL % 0.1 % (0.0-4.0); HEMATOCRIT 30.7 % (35.0-46.0); LYMPH % 7.7 % (9.0-44.0); LYMPHOCYTE # 1.2 TH/MM3 (1.0-4.8); MEAN CELL VOLUME 97.7 FL (80.0-100.0); MEAN CORPUSCULAR HEMOGLOBIN 31.1 PG (27.0-34.0); MEAN CORPUSCULAR HGB CONC 31.8 % (32.0-36.0); MONO % 3.9 % (0.0-8.0); NEUT % 87.9 % (16.0-70.0); PLATELET COUNT 173 TH/MM3 (150-450); RED BLOOD COUNT 3.14 MIL/MM3 (4.00-5.30); RED CELL DISTRIBUTION WIDTH 16.1 % (11.6-17.2); WHITE BLOOD COUNT 15.1 TH/MM3 (4.0-11.0)
[2016-07-30 08:38] LABS: HEMO FLAGS AUTO DIFF
[2016-07-30 08:48] LABS: BICARBONATE 21.5 MEQ/L (21.0-32.0); MAGNESIUM 2.2 MG/DL (1.5-2.5); POTASSIUM 4.1 MEQ/L (3.5-5.1)
[2016-07-30] MEDS: LACTOBACILLUS ACIDOPHILUS TAB PO SCH (08:51)
[2016-07-30] MEDS: predniSONE 5 MG TAB PO SCH (08:51)
[2016-07-30] MEDS: METOPROLOL TARTRATE 100 MG TAB PO SCH ×3 (08:51→22:37)
[2016-07-30] MEDS: FERROUS SULFATE 325 MG (65 MG ELEMENTAL IRON) TAB PO SCH (08:51)
[2016-07-30] MEDS: ISOSORBIDE DINITRATE 10 MG TAB PO SCH (08:51)
[2016-07-30] MEDS: GABAPENTIN 100 MG CAP PO SCH ×3 (08:51→16:55)
[2016-07-30] MEDS: SERTRALINE HCL 50 MG TAB PO SCH (08:52)
[2016-07-30] MEDS: amLODIPine BESYLATE 5 MG TAB PO SCH (08:52)
[2016-07-30] MEDS: SODIUM CHLORIDE 0.9% FLUSH 10 ML FLUSH IV FLUSH SCH ×2 (08:52→21:00)
[2016-07-30] MEDS: DEXT 5%-NACL 0.9% 1000 ML INJ 1,000 ML IV SCH (08:53)
[2016-07-30 09:42] LABS: BANDS 9 % (0-6); NEUTROPHIL # MANUAL DIFF 13.4 TH/MM3 (1.8-7.7); PLATELET ESTIMATE SMEAR NORMAL (NORMAL); PLATELET MORPHOLOGY NORMAL (NORMAL); POLYS (SEG NEUTROPHILS) 80 % (16-70); SCAN/DIFF FINAL DIFF MANUAL; WBC DIFF SAMPLE 100
[2016-07-30 09:43] LABS: DOHLE BODIES PRESENT (NONE SEEN)
--- NOTE | 2016-07-30 13:07 | MB ---
cc: NOY HIGH MD DATE OF CONSULTATION 07/30/[address] Navarro REASON FOR CONSULTATION Patient with kidney transplant on immunosuppressants admitted with worsening renal function. History of resistant UTI. HISTORY OF PRESENT ILLNESS This is a 76-year-old white female who presented to the emergency department after falling at home. The patient states that she got up to go to the bathroom and did not turn off a light and she fell over. She denies any dizziness or tripping over any object before she fell. She was evaluated in the emergency department because of weakness over the past several days and reportedly had low grade fever also. The patient is a poor historian. She has multiple medical problems including renal transplantation on immunosuppressants. She was recently admitted to the hospital in June and treated for sepsis and UTI. Urine culture at the time had Achromobacter and Enterococcus faecium. She was discharged from the hospital on June 24. The patient was evaluated in the emergency department and she had elevated temperature of 100 and white blood cell count 15.2. She also had abnormal urinalysis with many white blood cell clumps and large leukocyte esterase. Blood cultures were taken and the blood culture has gram-negative evans in one bottle. Temperature brandon to 102.3 degrees after admission. Her white blood cell count remains elevated. This consultation is requested for infection management and recommendations. CT scan of the head showed no acute disease. Chest x-ray showed stable chest x-ray without acute findings. The patient tells me that she feels okay. She is currently sitting up in a recliner chair and she appears awake and alert. She denies chills, nausea or vomiting. She is getting ready to eat lunch. She denies chest pain or shortness of breath and states that she was not experiencing any dizziness prior to falling. PAST MEDICAL HISTORY Hypertension, myocardial infarction status post coronary stent, chronic kidney disease, renal transplantation in 2004. Diabetes mellitus, gastroesophageal reflux disease, hiatal hernia, surgery on the toes, eyelid reconstruction. ALLERGIES CIPROFLOXACIN. MEDICATIONS 1. Piperacillin/Tazobactam. 2. Tacrolimus. 3. Lopressor. 4. Catapres. 5. Zoloft. 6. Lactinex. 7. Isordil. 8. Ferrous sulfate. 9. Norvasc. 10. Prednisone. 11. Neurontin. 12. Vancomycin IV dose was given on 07/29/2016. SOCIAL HISTORY No tobacco. Weekly alcohol intake. No illicit drugs. The patient was a former smoker. REVIEW OF SYSTEMS CONSTITUTIONAL: No chills. Significant for fever. Positive fatigue. HEAD, EARS, EYES, NOSE AND THROAT: No visual difficulties. No blurring of vision. No diplopia. No difficulty swallowing. No soreness of the throat. RESPIRATORY: No cough or shortness of breath. CARDIOVASCULAR: No palpitations, chest pain. GASTROINTESTINAL: No nausea, vomiting, abdominal pain or diarrhea. GENITOURINARY: Urinary frequency and abnormal vaginal bleeding. MUSCULOSKELETAL: No muscle aches or pain. INTEGUMENTARY: No skin rash or itching. HEMATOPOIETIC: No easy bruising or bleeding. NEUROLOGIC: No problems with coordination or dizziness or headaches. PSYCHIATRIC: No problems with confusion or mood changes. PHYSICAL EXAMINATION GENERAL: This is a frail thin female who is in no acute distress. She is awake and alert and oriented. VITAL SIGNS: Temperature 99.3, BP 176/84, respirations 16, heart rate 76. HEENT: Head atraumatic. Extraocular movements grossly intact, pupils reactive to light. No icterus. Oropharynx moist mucosa without lesions. NECK: Supple. No adenopathy. LUNGS: Clear, decreased breath sounds. HEART: Regular S1-S2 with a systolic murmur at the left sternal border 3/6. ABDOMEN: Bowel sounds present, soft, no tenderness appreciated. : The patient has a Hilliard catheter in place which has white cloudy sediment. RECTAL: Not performed. EXTREMITIES: No clubbing or cyanosis or edema. The patient has chronic dusky discoloration at the distal tibias. NEURO: Nonfocal. SKIN: No rash. LABORATORY DATA WBC 15.1, platelets 173, 87% neutrophils, hemoglobin 9.8, creatinine 4.17, BUN 74, estimated GFR 10, sodium 140. LFTs normal. IMPRESSION 1. Gram-negative sepsis. 2. UTI which is likely the source of sepsis. Patient with history of recurrent urinary tract infection. 3. Renal transplant status. 4. Leukocytosis secondary to infection. RECOMMENDATIONS 1. Continue piperacillin/Tazobactam. 2. Monitor blood the culture identity and sensitivity. 3. Monitor urine culture. 4. Monitor response to antibiotic treatment. The patient appears clinically stable and therefore I would just continue the current antibiotic but follow up on the cultures to determine whether she needs adjustment or change in antibiotic coverage. Thank you for this consultation. Noy High MD FD/CARLOS /12:26 PM /12:45 PM PEDRO
--- NOTE | 2016-07-30 16:54 | HHI.NPPN ---
Objective Data Data 07/29/16 07/30/16 19:00 07:00 Intake Total 940 ml Output Total 1950 ml Balance -1010 ml Intake Oral 120 ml IV Total 820 ml Output Urine Total 1950 ml Vital Signs Date Time Temp Pulse Resp B/P Pulse Ox O2 Delivery O2 Flow Rate FiO2 07/30/16 16:29 96.1 66 17 112/62 95 07/30/16 14:20 96.3 74 16 111/59 94 07/30/16 11:43 92 Nasal Cannula 21 07/30/16 08:58 99.3 76 16 176/84 93 07/30/16 06:00 64 07/30/16 05:06 99.2 80 17 118/57 96 07/30/16 03:01 98.7 07/30/16 02:10 150/67 07/30/16 00:58 102.3 81 17 170/78 96 07/29/16 20:00 99.0 86 18 183/83 97 07/29/16 19:00 99.0 86 20 170/81 97 07/29/16 16:58 98.3 134/72 98 Nasal Cannula 2 -: 07/30/16 0815 07/30/16 0815 Physical Exam General Appearance: Well Developed, Well Nourished Neck Neck Exam: Neck Supple Pulmonary Resp Exam: Clear Bilaterally, Breath Sounds Equal Cardiology CV Exam: Regular, Good Perfusion Gastrointestinal/Abdomen GI Exam: Soft, Non-Tender, Bowel Sounds Present Extremeties Extremities Exam: No Edema Assessment/Plan Problem List: (1) Acute on chronic kidney failure Plan: Baseline CKD 5, creatinine 3.5, GFR 13 ALEXIA may be prerenal from dehydration K and C02 are unremarkable US negative for hydronephrosis Cr improved 4.1 continue to observe (2) Anemia in CKD (chronic kidney disease) Plan: Hb 9.8, will give a dose of Epogen (3) HTN (hypertension) Plan: continue home medications avoid DON in light of ALEXIA (4) UTI (urinary tract infection) Plan: with fever hx of multiple UTIs on vancomycin and Zosyn (5) Renal transplant recipient Plan: continue immunosuppression with prednisone 5 mg tacrolimus 1 mg po BID cellcept 500 mg po BID check tacrolimus level on 07/31 in AM Problem Qualifiers (1) HTN (hypertension): Qualified Code: I10 - Essential hypertension (2) UTI (urinary tract infection): Qualified Code: N39.0 - Urinary tract infection with hematuria, site unspecified Kayode Moreira MD Jul 30, 2016 16:54
[2016-07-31] VITALS (10 sets, daily range): BP systolic 119–157; BP diastolic 62–80; PULSE 64–72; RESP 16–24; TEMP 96.6–97.6; O2SAT 95–99
[2016-07-31] MEDS: PIPERACIL-TAZO 2.25 GM PREMIX 50 ML IV SCH ×4 (01:19→21:38)
[2016-07-31] MEDS: DEXT 5%-NACL 0.9% 1000 ML INJ 1,000 ML IV SCH ×2 (01:21→18:49)
[2016-07-31] MEDS: MYCOPHENOLATE MOFETIL 500 MG TAB PO SCH ×2 (04:50→18:47)
[2016-07-31] MEDS: TACROLIMUS 1 MG CAP PO SCH ×2 (04:50→18:47)
[2016-07-31 07:57] LABS: AUTOMATED NEUTROPHIL # 7.8 TH/MM3 (1.8-7.7); BASOPHIL % 0.3 % (0.0-2.0); EOSINOPHIL # 0.1 TH/MM3 (0-0.4); EOSINOPHIL % 1.5 % (0.0-4.0); HEMATOCRIT 24.7 % (35.0-46.0); HEMO FLAGS DIFF FINAL; LYMPH % 14.1 % (9.0-44.0); LYMPHOCYTE # 1.4 TH/MM3 (1.0-4.8); MEAN CELL VOLUME 96.9 FL (80.0-100.0); MEAN CORPUSCULAR HEMOGLOBIN 30.6 PG (27.0-34.0); MEAN CORPUSCULAR HGB CONC 31.5 % (32.0-36.0); MONO % 5.1 % (0.0-8.0); PLATELET COUNT 138 TH/MM3 (150-450); RED BLOOD COUNT 2.55 MIL/MM3 (4.00-5.30); RED CELL DISTRIBUTION WIDTH 15.7 % (11.6-17.2); WHITE BLOOD COUNT 9.8 TH/MM3 (4.0-11.0)
[2016-07-31 08:18] LABS: MAGNESIUM 2.2 MG/DL (1.5-2.5); POTASSIUM 3.7 MEQ/L (3.5-5.1)
[2016-07-31] MEDS: SODIUM CHLORIDE 0.9% FLUSH 10 ML FLUSH IV FLUSH SCH ×2 (09:18→21:00)
[2016-07-31] MEDS: METOPROLOL TARTRATE 100 MG TAB PO SCH ×2 (09:19→21:39)
[2016-07-31] MEDS: GABAPENTIN 100 MG CAP PO SCH ×3 (09:19→18:47)
[2016-07-31] MEDS: SERTRALINE HCL 50 MG TAB PO SCH (09:19)
[2016-07-31] MEDS: amLODIPine BESYLATE 5 MG TAB PO SCH (09:19)
[2016-07-31] MEDS: FERROUS SULFATE 325 MG (65 MG ELEMENTAL IRON) TAB PO SCH (09:19)
[2016-07-31] MEDS: ISOSORBIDE DINITRATE 10 MG TAB PO SCH (09:19)
[2016-07-31] MEDS: predniSONE 5 MG TAB PO SCH (09:19)
[2016-07-31] MEDS: LACTOBACILLUS ACIDOPHILUS TAB PO SCH (09:19)
--- NOTE | 2016-07-31 10:50 | EC ---
Study Study Date:07/30/2016 STUDY CONCLUSIONS SUMMARY - Left ventricle: The cavity size was normal. Wall thickness was increased in a pattern of mild LVH. There was moderate focal basal hypertrophy of the septum. Systolic function was vigorous. The estimated ejection fraction was in the range of 65% to 70%. Wall motion was normal; there were no regional wall motion abnormalities. - Aortic valve: Valve area: 2.19cm^2(VTI). Valve area: 2.04cm^2 (Vmax). - Tricuspid valve: Mild-moderate regurgitation. - Pulmonary arteries: Systolic pressure was mildly to moderately increased. PA peak pressure: 49mm Hg (S). If LV function is below 40, please consider prescribing an ACEI or ARB or document rationale for non-use. PROCEDURE DATA STUDY STATUS: Elective. Procedure: Transthoracic echocardiography. Image quality was good. Scanning was performed from the parasternal, apical, and subcostal acoustic windows. Study completion: The patient tolerated the procedure well. Transthoracic echocardiography. M-mode, complete 2D, complete spectral Doppler, and color Doppler. Height: Height: 61in. Weight: Weight: 104.8lb. Body mass index: BMI: 19.8kg/m^2. Body surface area: BSA: 1.44m^2. Patient status: Inpatient. CARDIAC ANATOMY LEFT VENTRICLE: The cavity size was normal. Wall thickness was increased in a pattern of mild LVH. There was moderate focal basal hypertrophy of the septum. Systolic function was vigorous. The estimated ejection fraction was in the range of 65% to 70%. Wall motion was normal; there were no regional wall motion abnormalities. AORTIC VALVE: Trileaflet; normal thickness, mildly calcified leaflets. Doppler: Transvalvular velocity was within the normal range. There was no stenosis. No regurgitation. Valve area: 2.19cm^2(VTI). Indexed valve area: 1.52cm^2/m^2 (VTI). Valve area: 2.04cm^2 (Vmax). Indexed valve area: 1.42cm^2/m^2 (Vmax). Mean gradient: 11mm Hg (S). Peak gradient: 19mm Hg (S). AORTA: Aortic root: The aortic root was normal in size. MITRAL VALVE: Structurally normal valve. Doppler: Transvalvular velocity was within the normal range. There was no evidence for stenosis. No regurgitation. Peak gradient: 4mm Hg (D). LEFT ATRIUM: The atrium was normal in size. RIGHT VENTRICLE: The cavity size was normal. Wall thickness was normal. PULMONIC VALVE: Doppler: Transvalvular velocity was within the normal range. There was no evidence for stenosis. No regurgitation. TRICUSPID VALVE: Structurally normal valve. Doppler: Transvalvular velocity was within the normal range. Mild-moderate regurgitation. PULMONARY ARTERY: The main pulmonary artery was normal-sized. Systolic pressure was mildly to moderately increased. RIGHT ATRIUM: The atrium was normal in size. PERICARDIUM: There was no pericardial effusion. SYSTEMIC VEINS: Inferior vena cava: The vessel was mildly dilated. Patient weight: 104.8lb _Ejection fraction:_ 65-75% _Fractional shortening:_ 32% up to 5Kg 5-11.5Kg 11.6-22.9Kg 23-45Kg 45-57Kg Aortic Root 7-13 <17 13-22 17-27 17-27 LA diam 6-13 <23 24-38 33-47 37-40 RVID 10-17 7-15 7-15 7-18 8-17 LVIDd 12-22 <32 24-38 33-47 37-40 LVPW 2-4 3-6 5-7 6-8 7-8 IVS 2-4 3-6 5-7 6-8 7-8 BASIC MEASUREMENTS ADULT NORMAL Left ventricle LV internal dimension, ED, chordal *41.2 mm 43-52 level, PLAX LV internal dimension, ES, chordal 28 mm 23-38 level, PLAX Fractional shortening, chordal level, 32 % >29 PLAX LV posterior wall thickness, ED 11.8 mm IVS/LVPW ratio, ED 0.99 <1.3 Ventricular septum Septal thickness, ED 11.7 mm Aortic valve Leaflet separation 22 mm 15-26 Aorta Root diameter, ED 29 mm Left atrium Anterior-posterior dimension 36 mm Anterior-posterior dimension index *2.5 cm/m^2 <2.2 BASIC MEASUREMENTS ADULT NORMAL Aortic valve Leaflet separation 22 mm 15-26 DOPPLER MEASUREMENTS ADULT NORMAL Main pulmonary artery Pressure, S *49 mm Hg =30 Aortic valve Peak velocity, S 220 cm/s Mean velocity, S 154 cm/s VTI, S 47.5 cm Mean gradient, S 11 mm Hg Peak gradient, S 19 mm Hg Valve area, VTI 2.19 cm^2 Valve area index, VTI 1.52 cm^2/m^2 Valve area, Vmax 2.04 cm^2 Valve area index, Vmax 1.42 cm^2/m^2 Mitral valve Peak E-wave velocity 98.7 cm/s Peak A-wave velocity 86.4 cm/s Deceleration time 208 ms 150-230 Peak gradient, D 4 mm Hg Peak E/A ratio 1.1 Tricuspid valve Regurgitant peak velocity 326 cm/s Peak RV-RA gradient, S 43 mm Hg Maximal regurgitant velocity 326 cm/s Systemic veins Estimated CVP 10 mm Hg Right ventricle RV pressure, S *53 mm Hg <30 Pulmonic valve Peak velocity, S 96.3 cm/s LEGEND: Mean values are shown as u=mean value. Asterisk (*) morrell values outside specified normal range. Prepared and signed by Matthias Knapp [id number]
--- NOTE | 2016-07-31 10:59 | HHI.FPPN ---
Subjective Remarks Sitting up in bed, no acute events. Hemoglobin dropped 2 points but she is asymptomatic. Getting hemoccult test and repeating H&H in the afternoon. Reports feeling back to her baseline. Reports no pain. No lightheadedness with standing. No syncope. Objective Vitals Vital Signs Date Time Temp Pulse Resp B/P Pulse Ox O2 Delivery O2 Flow Rate FiO2 07/31/16 09:37 97.1 68 16 157/76 97 07/31/16 05:15 97.1 68 16 140/76 99 07/31/16 00:18 97.4 70 18 138/72 99 07/30/16 20:44 97.8 67 18 112/56 98 07/30/16 19:00 63 07/30/16 18:19 95 Nasal Cannula 2.00 07/30/16 16:29 96.1 66 17 112/62 95 07/30/16 14:20 96.3 74 16 111/59 94 07/30/16 11:43 92 Nasal Cannula 21 I/O 07/30/16 07/30/16 07/30/16 07/31/16 07/31/16 07/31/16 07:00 15:00 23:00 07:00 15:00 23:00 Intake Total 940 ml 240 ml Output Total 1950 ml 450 ml 700 ml Balance -1010 ml -210 ml -700 ml Intake Oral 120 ml 240 ml IV Total 820 ml Output Urine Total 1950 ml 450 ml 700 ml # Bowel Movements 1 0 Result Diagram: 07/31/16 0724 07/31/16 0724 Imaging Last [address] 07/29/161208 Signed Impressions: Service Date/Time: Friday, July 29, 2016 13:06 - CONCLUSION: No acute disease. Dmitry Hanna MD Elbow X-Ray 07/29/161208 Signed Impressions: Service Date/Time: Friday, July 29, 2016 12:58 - CONCLUSION: Soft tissue swelling. Dmitry Hanna MD Chest X-Ray 07/29/161208 Signed Impressions: Service Date/Time: Friday, July 29, 2016 13:03 - CONCLUSION: Stable chest x-ray without an acute finding identified. Jeffrey De Jesus MD Cervical Spine CT 07/29/161208 Signed Impressions: Service Date/Time: Friday, July 29, 2016 13:09 - CONCLUSION: Severe degenerative changes without evidence for acute fracture. Dmitry Hanna MD Renal Ultrasound 07/29/16 0000 Signed Impressions: Service Date/Time: Friday, July 29, 2016 14:10 - CONCLUSION: 1. Renal transplant resistive indices remain at the upper limits for normal. Otherwise, renal vascular assessment is within normal limits. 2. There is mild fullness of the collecting system without significant hydronephrosis. 3. There is debris within the urinary bladder. Jeffrey De Jesus MD Carotid Artery Ultrasound 07/29/16 0000 Signed Impressions: Service Date/Time: Friday, July 29, 2016 16:06 - CONCLUSION: Atherosclerosis without evidence of hemodynamically significant stenosis. Dmitry Hanna MD Objective Remarks GENERAL: No distress, lying in bed, comfortable SKIN: Large ecchymoses over dorsum of hands and forearms. HEAD: NC/AT EYES: PERRL. No conjunctival erythema or drainage. ENT: MMM. OP without erythema or exudate. NECK: No JVD. Carotid bruits present bilaterally. CARDIOVASCULAR: NRRR, normal S1/S2. II/ systolic murmur heard best in aortic and mitral areas. No S3/S4. RESPIRATORY: CTAB. No crackles or wheezes. GASTROINTESTINAL: Scar from prior renal transplant. Abdomen soft, non-tender, nondistended. No hepato-splenomegaly. Transplanted kidney palpable RLQ, non- tender. No guarding. MUSCULOSKELETAL: No peripheral edema of ankles. R elbow with significant hematoma, point tenderness over olecranon, slightly improved since admission.. NEUROLOGICAL: Awake and alert. Answers questions appropriately. A/P Assessment and Plan 76 yo female with h/o HTN, Kidney transplant, CKD not on dialysis presenting with fall at home, found to have ALEXIA and UTI. Discharge Planning Discharge pending afebrile, no leukocytosis, kidney function back to baseline. Problem List: (1) UTI (urinary tract infection) Status: Acute Plan: UA showing many WBC with clumps. U/S: Renal transplant resistant indices remain at the upper limit of normal. Renal vascular assessment is within normal limits. Mild fullness of collecting system without significant hydronephrosis. There is debris within the urinary bladder. Urine growing Klebsiella Oxytoca. Creatinine 3.92 today, baseline is about 3.5 per chart review. - Infectious disease on board due to complicated UTI's in the past. - Recommending Zosyn for the time being. - Monitor renal function (2) Acute on chronic kidney failure Status: Acute Plan: Baseline Cr approx 3.5, brandon to 4.22 on admission. Improving today. Followed by nephrology as outpatient. Per nephrology, patient trending toward dialysis. - Nephrology consulted, appreciate assistance - D5 1/2 NS at 60 cc/hr - Renally dose medications - Avoid nephrotoxic agents - Electrolytes stable, monitor and replace as needed. - Track renal function (3) Fall Status: Acute Plan: 2 days ago, questionable syncope, but more likely mechanical fall. She reports tripping over her feet in the dark, but does say the details are foggy in her memory. Exam significant for 2/[address] head negative for bleeding XR R elbow showing hematoma but no fracture Carotid ultrasound unremarkable. - Fall precautions - Physical therapy (4) Kidney transplant recipient Status: Chronic Plan: Nephrology consulted, appreciate assistance - prednisone 5 mg - tacrolimus 1 mg po BID. Tacrolimus level pending - cellcept 500 mg po BID (5) Anemia in CKD (chronic kidney disease) Status: Chronic Plan: Hgb stable, likely patient's baseline given renal disease - pharmacologic DVT ppx contraindicated - track Hgb daily - if other signs of bleeding develop, additional w/u as indicated - Continue home iron (6) HTN (hypertension) Status: Acute Plan: BP stable - Continue home amlodipine (7) Depression Status: Chronic Plan: Stable - Continue home Zoloft (8) CAD (coronary artery disease) Status: Chronic Plan: Symptoms stable - Continue home nitrite, beta axel - Continue home aspirin 81 mg PO daily (9) FEN/PPX Status: Acute Plan: Fluids: D5 1/2 NS at 60 cc/hr Elecs: Monitor and replete PRN Nutrition: Diet Renal DVT: ppx contraindicated due to hematoma dw Dr. Cm Problem Qualifiers (1) UTI (urinary tract infection): Qualified Code: N39.0 - Urinary tract infection with hematuria, site unspecified (2) Fall: Qualified Code: W19.XXXA - Fall, initial encounter (3) HTN (hypertension): Qualified Code: I10 - Essential hypertension (4) Depression: Qualified Code: F32.9 - Depression, unspecified depression type (5) CAD (coronary artery disease): Qualified Code: I25.10 - Coronary artery disease involving [place] coronary artery of [place] heart without angina pectoris Errol Vu MD R2 Jul 31, 2016 10:59
--- NOTE | 2016-07-31 12:47 | HHI.NPPN ---
Subjective History of Present Illness 76 year old with Kidney transplant anemia Objective Data Data 07/30/16 07/31/16 19:00 07:00 Intake Total 240 ml Output Total 450 ml 700 ml Balance -210 ml -700 ml Intake Oral 240 ml Output Urine Total 450 ml 700 ml # Bowel Movements 1 0 Vital Signs Date Time Temp Pulse Resp B/P Pulse Ox O2 Delivery O2 Flow Rate FiO2 07/31/16 10:58 95 High Flow Nasal Cannula 2.00 07/31/16 09:37 97.1 68 16 157/76 97 07/31/16 07:00 64 07/31/16 05:15 97.1 68 16 140/76 99 07/31/16 00:18 97.4 70 18 138/72 99 07/30/16 20:44 97.8 67 18 112/56 98 07/30/16 19:00 63 07/30/16 18:19 95 Nasal Cannula 2.00 07/30/16 16:29 96.1 66 17 112/62 95 07/30/16 14:20 96.3 74 16 111/59 94 -: 07/31/16 0724 07/31/16 0724 Physical Exam General Appearance: Well Developed, Pale Neck Neck Exam: Neck Supple Pulmonary Resp Exam: Clear Bilaterally, Breath Sounds Equal Cardiology CV Exam: Regular, Normal Sinus Rhythm Gastrointestinal/Abdomen GI Exam: Soft, Non-Tender, Bowel Sounds Present Integumentary Skin Exam: Clear Extremeties Extremities Exam: No Edema Assessment/Plan Problem List: (1) Acute on chronic kidney failure Plan: Baseline CKD 5, ALEXIA may be prerenal from dehydration K and C02 are unremarkable US negative for hydronephrosis Cr improved 3.92 Hb low Procrit ordered continue to observe (2) Anemia in CKD (chronic kidney disease) Plan: Hb 7.8, will give a dose of Epogen (3) HTN (hypertension) Plan: continue home medications avoid DON in light of ALEXIA (4) UTI (urinary tract infection) Plan: with fever hx of multiple UTIs on vancomycin and Zosyn (5) Renal transplant recipient Plan: continue immunosuppression with prednisone 5 mg tacrolimus 1 mg po BID cellcept 500 mg po BID check tacrolimus level on 07/31 in AM Problem Qualifiers (1) HTN (hypertension): Qualified Code: I10 - Essential hypertension (2) UTI (urinary tract infection): Qualified Code: N39.0 - Urinary tract infection with hematuria, site unspecified Kayode Moreira MD Jul 31, 2016 12:47
[2016-07-31] MEDS ORDERED: EPOETIN ALFA 10,000 UNITS/ML VIAL SQ ONE (14:00)
[2016-07-31] MEDS ORDERED: VANCOMYCIN INJ 800 MG in SODIUM CHLOR 0.9% 250 ML INJ 250 ML IV ONE (14:00)
[2016-07-31 14:32] LABS: TRANSFERRIN IRON PROFILE 105 MG/DL (200-360)
[2016-07-31 19:40] LABS: HEMATOCRIT 27.2 % (35.0-46.0); REVIEW FLAG FINAL
[2016-08-01] VITALS: BP 155/78; PULSE 18; RESP 18; TEMP 97.2; O2SAT 95
[2016-08-01] MEDS: DEXT 5%-NACL 0.9% 1000 ML INJ 1,000 ML IV SCH (01:21)
[2016-08-01] MEDS: PIPERACIL-TAZO 2.25 GM PREMIX 50 ML IV SCH ×2 (01:31→07:48)
[2016-08-01 04:00] VITALS: BP 168/80; PULSE 65; RESP 20; TEMP 98.6; O2SAT 95
[2016-08-01] MEDS: MYCOPHENOLATE MOFETIL 500 MG TAB PO SCH ×2 (05:02→16:47)
[2016-08-01] MEDS: TACROLIMUS 1 MG CAP PO SCH ×2 (05:02→16:47)
[2016-08-01] MEDS: FERROUS SULFATE 325 MG (65 MG ELEMENTAL IRON) TAB PO SCH (07:46)
[2016-08-01] MEDS: predniSONE 5 MG TAB PO SCH (07:46)
[2016-08-01] MEDS: GABAPENTIN 100 MG CAP PO SCH ×3 (07:46→16:47)
[2016-08-01] MEDS: SERTRALINE HCL 50 MG TAB PO SCH (07:47)
[2016-08-01] MEDS: amLODIPine BESYLATE 5 MG TAB PO SCH (07:47)
[2016-08-01] MEDS: ISOSORBIDE DINITRATE 10 MG TAB PO SCH (07:47)
[2016-08-01] MEDS: LACTOBACILLUS ACIDOPHILUS TAB PO SCH (07:47)
[2016-08-01] MEDS: METOPROLOL TARTRATE 100 MG TAB PO SCH ×2 (07:47→22:09)
[2016-08-01] MEDS: SODIUM CHLORIDE 0.9% FLUSH 10 ML FLUSH IV FLUSH SCH ×2 (07:48→21:00)
[2016-08-01 08:00] VITALS: BP 173/84; PULSE 70; RESP 20; TEMP 96.1; O2SAT 90
[2016-08-01 08:46] LABS: HEMATOCRIT 27.5 % (35.0-46.0); MEAN CELL VOLUME 97.6 FL (80.0-100.0); MEAN CORPUSCULAR HEMOGLOBIN 30.9 PG (27.0-34.0); MEAN CORPUSCULAR HGB CONC 31.6 % (32.0-36.0); PLATELET COUNT 166 TH/MM3 (150-450); RED BLOOD COUNT 2.82 MIL/MM3 (4.00-5.30); RED CELL DISTRIBUTION WIDTH 15.8 % (11.6-17.2); WHITE BLOOD COUNT 10.1 TH/MM3 (4.0-11.0)
[2016-08-01 09:10] LABS: BICARBONATE 19.6 MEQ/L (21.0-32.0)
--- NOTE | 2016-08-01 10:44 | HHI.NPPN ---
Subjective General Problems: Anemia Renal Failure: Chronic, Acute, Stage V History of Present Illness 76 year old with hx of Kidney transplant, anemia, admitted for UTI with ALEXIA. Interval History She looks better, feels better. Renal function has improved. (Noa Vazquez) Objective Data Data 07/31/16 08/01/16 19:00 07:00 Output Total 1200 ml Balance -1200 ml Output Urine Total 1200 ml Vital Signs Date Time Temp Pulse Resp B/P Pulse Ox O2 Delivery O2 Flow Rate FiO2 08/01/16 08:00 96.1 70 20 173/84 90 08/01/16 04:00 98.6 65 20 168/80 95 08/01/16 00:00 97.2 18 18 155/78 95 07/31/16 20:00 96.6 69 24 155/80 97 07/31/16 17:35 97.6 70 16 149/72 96 07/31/16 15:01 72 07/31/16 13:50 97.0 69 16 119/62 96 07/31/16 12:00 97.0 69 16 119/62 96 07/31/16 10:58 95 High Flow Nasal Cannula 2.00 (Noa Vazquez) -: 08/01/16 0808 08/01/16 0808 Microbiology 07/31/16 Stool Occult Blood (SHARON) - Final, Complete HEMOCCULT NEGATIVE Imaging Last [address] 07/29/16 1209 Signed Impressions: Service Date/Time: Friday, July 29, 2016 13:06 - CONCLUSION: No acute disease. Dmitry Hanna MD Elbow X-Ray 07/29/16 120 Signed Impressions: Service Date/Time: Friday, July 29, 2016 12:58 - CONCLUSION: Soft tissue swelling. Dmitry Hanna MD Chest X-Ray 07/29/16 1209 Signed Impressions: Service Date/Time: Friday, July 29, 2016 13:03 - CONCLUSION: Stable chest x-ray without an acute finding identified. Jeffrey De Jesus MD Cervical Spine CT 07/29/16 1209 Signed Impressions: Service Date/Time: Friday, July 29, 2016 13:09 - CONCLUSION: Severe degenerative changes without evidence for acute fracture. Dmitry Hanna MD (Noa Vazquez) Physical Exam General Appearance: Well Developed, Well Nourished, No Acute Distress, Comfortable ( Noa Vazquez) Throat Throat Exam: Oral Mucosa [place] & Moist (Noa Vazquez) Neck Neck Exam: Neck Supple, Trachea Midline (Noa VazquezP) Pulmonary Resp Exam: Clear Bilaterally, Breath Sounds Equal (Noa Vazquez) Cardiology CV Exam: Regular, Good Perfusion (Noa Vazquez) Gastrointestinal/Abdomen GI Exam: Soft, Non-Tender, Bowel Sounds Present (Noa Vazquez) Musculoskeletal MS Exam: Joints Intact, Normal Tone (Noa Vazquez) Integumentary Skin Exam: Clear, Warm, Dry, Intact (Noa Vazquez) Extremeties Extremities Exam: No Edema, Pedal Pulses Palpable (Noa Vazquez) Neurologic Neuro Exam: Alert, Awake, Oriented, Speech Clear, Moving All Extremities ( Noa Vazquez) Assessment/Plan Discussed Condition With: Patient Assessment Summary: ALEXIA/Acute Renal Failure, Anemia of CKD, CKD Stage V Problem List: (1) Acute on chronic kidney failure Plan: Baseline CKD 5, creatinine 3.5, GFR 13 ALEXIA from dehydration , also has UTI renal function is better K and C02 are unremarkable tolerating diet/fluids stable for discharge from renal standpoint avoid nephrotoxins taper off IVF (2) Anemia in CKD (chronic kidney disease) Plan: given Epogen (3) HTN (hypertension) Plan: continue home medications avoid DON in light of ALEXIA (4) UTI (urinary tract infection) Plan: on rocephin, Zosyn and vancomycin were stopped may need reclamation engineer Abx therapy; can place Gilliland catheter in right IJ, avoid PICC lines (5) Renal transplant recipient Plan: continue immunosuppression with prednisone 5 mg tacrolimus 1 mg po BID cellcept 500 mg po BID tacrolimus level noted (Noa Vazquez) Plan patient was seen and examined. Renal function is better. For continued IV antibiotic, I would recommend to avoid Picc line, instead tunneled Gilliland in the IJ is a better option. Discussed with primary care attending. (Jett Diana MD) Problem Qualifiers (1) HTN (hypertension): Qualified Code: I10 - Essential hypertension (2) UTI (urinary tract infection): Qualified Code: N39.0 - Urinary tract infection with hematuria, site unspecified Noa VazquezP Aug 01, 2016 10:44 Jett Diana MD Aug 02, 2016 11:09
--- NOTE | 2016-08-01 10:45 | HHI.FF ---
Face to Face Verification Diagnosis: (1) UTI (urinary tract infection) (2) Bacteremia (3) Fall (4) CAD (coronary artery disease) Physical Therapy Order: Evaluate and Treat Home Health Nursing Order: Medical education Nursing assessment with vital signs IV medication administration I have seen patient Cecile Macias on 08/01/16. My clinical findings support the need for the requested home health care services because: High risk of falls Injectable med education/admin I certify that my clinical findings support that this patient is homebound because: Unsteady gait/balance Need for psychosocial assistance Husam Weaver MD R1 Aug 01, 2016 10:44
--- NOTE | 2016-08-01 11:39 | HHI.FPPN ---
Subjective Remarks No acute events overnight. AFVSS. Feeling well today, much improved from admission. No CP, SOB, abdominal pain. No swelling. (Husam Weaver MD R1) Objective Vitals Vital Signs Date Time Temp Pulse Resp B/P Pulse Ox O2 Delivery O2 Flow Rate FiO2 08/01/16 08:00 96.1 70 20 173/84 90 08/01/16 04:00 98.6 65 20 168/80 95 08/01/16 00:00 97.2 18 18 155/78 95 07/31/16 20:00 96.6 69 24 155/80 97 07/31/16 17:35 97.6 70 16 149/72 96 07/31/16 15:01 72 07/31/16 13:50 97.0 69 16 119/62 96 07/31/16 12:00 97.0 69 16 119/62 96 I/O 07/31/16 07/31/16 07/31/16 08/01/16 08/01/16 08/01/16 07:00 15:00 23:00 07:00 15:00 23:00 Output Total 700 ml 1200 ml Balance -700 ml -1200 ml Output Urine Total 700 ml 1200 ml # Bowel Movements 0 (Husam Weaver MD R1) Result Diagram: 08/01/16 0808 08/01/16 0808 Imaging Last Impressions Head CT 07/29/16 120 Signed Impressions: Service Date/Time: Friday, July 29, 2016 13:06 - CONCLUSION: No acute disease. Dmitry Hanna MD Elbow X-Ray 07/29/16 120 Signed Impressions: Service Date/Time: Friday, July 29, 2016 12:58 - CONCLUSION: Soft tissue swelling. Dmitry Hanna MD Chest X-Ray 07/29/16 120 Signed Impressions: Service Date/Time: Friday, July 29, 2016 13:03 - CONCLUSION: Stable chest x-ray without an acute finding identified. Jeffrey De Jesus MD Cervical Spine CT 07/29/16 120 Signed Impressions: Service Date/Time: Friday, July 29, 2016 13:09 - CONCLUSION: Severe degenerative changes without evidence for acute fracture. Dmitry Hanna MD Renal Ultrasound 07/29/16 0000 Signed Impressions: Service Date/Time: Friday, July 29, 2016 14:10 - CONCLUSION: 1. Renal transplant resistive indices remain at the upper limits for normal. Otherwise, renal vascular assessment is within normal limits. 2. There is mild fullness of the collecting system without significant hydronephrosis. 3. There is debris within the urinary bladder. Jeffrey De Jesus MD Carotid Artery Ultrasound 07/29/16 0000 Signed Impressions: Service Date/Time: Friday, July 29, 2016 16:06 - CONCLUSION: Atherosclerosis without evidence of hemodynamically significant stenosis. Dmitry Hanna MD Objective Remarks GENERAL: No distress, lying in bed, comfortable SKIN: Large ecchymoses over dorsum of hands and forearms. HEAD: NC/AT EYES: PERRL. No conjunctival erythema or drainage. ENT: MMM. OP without erythema or exudate. NECK: No JVD. Carotid bruits present bilaterally. CARDIOVASCULAR: NRRR, normal S1/S2. II/ systolic murmur heard best in aortic and mitral areas. No S3/S4. RESPIRATORY: CTAB. No crackles or wheezes. GASTROINTESTINAL: Scar from prior renal transplant. Abdomen soft, non-tender, nondistended. No hepato-splenomegaly. Transplanted kidney palpable RLQ, non- tender. No guarding. MUSCULOSKELETAL: No peripheral edema of ankles. R elbow with significant hematoma, point tenderness over olecranon, slightly improved since admission.. NEUROLOGICAL: Awake and alert. Answers questions appropriately. (Husam Weaver MD R1) A/P Assessment and Plan 76 yo female with h/o HTN, Kidney transplant, CKD not on dialysis presenting with fall at home, found to have ALEXIA and UTI. Discharge Planning Home tomorrow after placement of Gilliland IJ, outpatient antibiotic arrangements (Husam Weaver MD R1) Attending Attestation Patient seen and examined, discussed with Dr Weaver. I agree with assessment and management as documented and discussed with me. Pt without complaints. No abd pain, no nausea. Pt will need 10 day course of IV antibiotics (total). Plan for Gilliland IJ to provide IV antibiotics as an outpatient, once home health is arranged. (Marilu Cm MD) Problem List: (1) UTI (urinary tract infection) Status: Acute Plan: UA showing many WBC with clumps. U/S: Renal transplant resistant indices remain at the upper limit of normal. Renal vascular assessment is within normal limits. Mild fullness of collecting system without significant hydronephrosis. There is debris within the urinary bladder. Urine growing Klebsiella Oxytoca. Creatinine 3.92 today, baseline is about 3.5 per chart review. UCx showing Klebsiella sensitive to everything but ampicillin - ID consulted, appreciate assistance - D/C Zosyn and start Rocephin dosed daily - Will need 10 total days IV antibiotics - Monitor renal function (2) Acute on chronic kidney failure Status: Acute Plan: Baseline Cr approx 3.5, brandon to 4.22 on admission. Improving today. Followed by nephrology as outpatient. Per nephrology, patient trending toward dialysis. Cr today 3.75 (steadily improving since admission) - Nephrology consulted, appreciate assistance - D5 1/2 NS at 60 cc/hr - Renally dose medications - Avoid nephrotoxic agents - Electrolytes stable, monitor and replace as needed. - Track renal function (3) Fall Status: Acute Plan: 2 days ago, questionable syncope, but more likely mechanical fall. She reports tripping over her feet in the dark, but does say the details are foggy in her memory. Exam significant for 2/[address] head negative for bleeding XR R elbow showing hematoma but no fracture Carotid ultrasound unremarkable Echo showing normal flow across aortic valve, normal valve area, normal EF - Fall precautions - Physical therapy recommending home health PT (4) Kidney transplant recipient Status: Chronic Plan: Nephrology consulted, appreciate assistance - prednisone 5 mg - tacrolimus 1 mg po BID. Tacrolimus level pending - cellcept 500 mg po BID (5) Anemia in CKD (chronic kidney disease) Status: Chronic Plan: Hgb stable, likely patient's baseline given renal disease - pharmacologic DVT ppx contraindicated - track Hgb daily - if other signs of bleeding develop, additional w/u as indicated - Continue home iron (6) HTN (hypertension) Status: Acute Plan: BP stable - Continue home amlodipine (7) Depression Status: Chronic Plan: Stable - Continue home Zoloft (8) CAD (coronary artery disease) Status: Chronic Plan: Symptoms stable - Continue home nitrite, beta axel - Continue home aspirin 81 mg PO daily (9) FEN/PPX Status: Acute Plan: Fluids: D5 1/2 NS at 60 cc/hr Elecs: Monitor and replete PRN Nutrition: Diet Renal DVT: ppx contraindicated due to hematoma dw Dr. Cm (Husam Weaver MD R1) Problem Qualifiers (1) UTI (urinary tract infection): Qualified Code: N39.0 - Urinary tract infection with hematuria, site unspecified (2) Fall: Qualified Code: W19.XXXA - Fall, initial encounter (3) HTN (hypertension): Qualified Code: I10 - Essential hypertension (4) Depression: Qualified Code: F32.9 - Depression, unspecified depression type (5) CAD (coronary artery disease): Qualified Code: I25.10 - Coronary artery disease involving [place] coronary artery of [place] heart without angina pectoris Husam Weaver MD R1 Aug 01, 2016 11:39 Marilu Cm MD Aug 01, 2016 14:28
[2016-08-01] MEDS: cefTRIAXone INJ 2,000 MG in SODIUM CHLORIDE 0.9% INJ 100 ML IV SCH (11:41)
[2016-08-01 12:00] VITALS: BP 141/70; PULSE 68; RESP 21; TEMP 96.6; O2SAT 98
[2016-08-01] MEDS ORDERED: VANCOMYCIN INJ 1,000 MG in SODIUM CHLOR 0.9% 250 ML INJ 250 ML IV SCH (13:00)
--- NOTE | 2016-08-01 13:57 | HHI.FF ---
Infusion Therapy Location of Infusion Therapy: Home Health Care IV Infusion Order Patient Information Patient Weight 53.2 kg Diagnosis: (1) Sepsis (2) UTI (urinary tract infection) Coded Allergies: Cipro (Verified Allergy, Severe, Itching, 07/29/16) Administer Medication Ceftriaxone 2 grams IV q 24 hours Stop Treatment: Aug 09, 2016 Additional Information Venous access: Implanted Port Additional Instructions [x] Peripheral flush and dressing changes per protocol [x] Implanted port and central line helper: * Implanted port: 10 ml Normal Saline followed by 5 ml Heparin 100 units/ml Heparin flush after each use and monthly to maintain. [] May leave port accessed during therapy. [] May leave peripheral site accessed for duration of therapy. [x] If patient has SOB or respiratory distress, check oxygen saturation. If less than 90% or clinical signs of respiratory distress, administer oxygen at 2 L/min. via nasal cannula and notify physician. [x] Anaphylaxis/Reaction orders: * Stop infusion. * Keep IV line open with saline flush. * Notify physician. * Monitor vital signs every 15 minutes until symptoms resolve. * Check Oxygen saturation; Oxygen at 2 L/min. via nasal cannula if less than 90% or clinical signs of respiratory distress. * Administer diphenhydramine (Benadryl) 25 mg IV STAT, (unless patient has received as pre-med). May repeat once, if necessary. * Solu-Cortef 250 mg IVP over 30-60 seconds, use 100 mg vials for each dissolution. * Epinephrine (1mg/1 ml) 0.3 mg subcutaneously or IVP now with any signs of respiratory distress. * Check with physician for new additional pre-med orders if patient is re- challenged or re-treated. [x] May remove PICC line when treatment complete, after confirming with Physician. [x] If the patient is admitted to the hospital, the ED, or transferred via [facility] , complete transfer form including medication reconciliation order sheet. Laboratory Tests Weekly Labs: Erickson Grey MD Aug 01, 2016 13:56
--- NOTE | 2016-08-01 14:03 | HHI.IDPN ---
Note Infectious Disease Note Patient without complaints. Afebrile. PAST MEDICAL HISTORY Hypertension, myocardial infarction status post coronary stent, chronic kidney disease, renal transplantation in 2004. Diabetes mellitus, gastroesophageal reflux disease, hiatal hernia, surgery on the toes, eyelid reconstruction. ALLERGIES CIPROFLOXACIN. Current Medications Medications (Trade) Dose Ordered Sig/Paige Route PRN Reason Start Time Stop Time Status Last Admin Dose Admin Sodium Chloride (NS Flush) 2 ml UNSCH PRN IV FLUSH FLUSH AFTER USING IV ACCESS 07/29/16 15:00 Sodium Chloride (NS Flush) 2 ml BID IV FLUSH 07/29/16 21:00 08/01/16 07:48 Sennosides (Senokot) 17.2 mg Q12H PRN PO CONSTIPATION 07/29/16 15:00 Acetaminophen (Tylenol) 650 mg Q6H PRN PO PAIN 3 TO 6 or fever >100.4 07/29/16 15:00 07/30/16 08:51 Oxycodone HCl (Roxicodone) 5 mg Q4H PRN PO PAIN SCALE 7 TO 10 07/29/16 15:00 07/29/16 20:58 Naloxone HCl 0.4 mg 0.4 mg UNSCH PRN IV SEE LABEL COMMENTS 07/29/16 15:00 Pharmacy Profile Note (Vancomycin Consult Pharmacy) 0 ml @ 0 mls/hr UNSCH OTHER 07/29/16 15:30 Prednisone (Deltasone) 5 mg DAILY PO 07/30/16 09:00 08/01/16 07:46 Tacrolimus (Prograf) 1 mg BID@,18 PO 07/29/16 18:00 08/01/16 05:02 Mycophenolate Mofetil 500 mg 500 mg BID@,18 PO 07/29/16 18:00 08/01/16 05:02 Dextrose/Sodium Chloride (D5W-NS 1000 ml Inj) 1,000 ml @ 60 mls/hr [id number] IV 07/29/16 17:00 08/01/16 01:21 Amlodipine Besylate (Norvasc) 10 mg DAILY PO 07/30/16 09:00 08/01/16 07:47 Ferrous Sulfate (Ferrous Sulfate) 325 mg DAILY PO 07/30/16 09:00 08/01/16 07:46 Gabapentin (Neurontin) 100 mg TID PO 07/29/16 18:00 08/01/16 11:41 Isosorbide Dinitrate (Isordil) 10 mg DAILY PO 07/30/16 09:00 08/01/16 07:47 Metoprolol Tartrate (Lopressor) 100 mg BID PO 07/29/16 21:00 08/01/16 07:47 Sertraline HCl (Zoloft) 50 mg DAILY PO 07/30/16 09:00 08/01/16 07:47 Lactobacillus Acidophilus (Lactinex) 1 tab DAILY PO NS 07/30/16 09:00 08/01/16 07:47 Clonidine 0.1 mg 0.1 mg Q6H PRN PO SEE LABEL COMMENTS 07/30/16 00:45 07/30/16 00:54 Ceftriaxone Sodium/Sodium Chloride (Rocephin Inj/NS Inj) 100 ml @ 200 mls/hr Q24H IV 08/01/16 12:00 08/01/16 11:41 SOCIAL HISTORY No tobacco. Weekly alcohol intake. No illicit drugs. The patient was a former smoker. OBJECTIVE: Vital Signs Date Time Temp Pulse Resp B/P Pulse Ox O2 Delivery O2 Flow Rate FiO2 08/01/16 12:00 96.6 68 21 141/70 98 08/01/16 08:00 96.1 70 20 173/84 90 08/01/16 04:00 98.6 65 20 168/80 95 08/01/16 00:00 97.2 18 18 155/78 95 07/31/16 20:00 96.6 69 24 155/80 97 07/31/16 17:35 97.6 70 16 149/72 96 07/31/16 15:01 72 07/31/16 07/31/16 08/01/16 15:00 23:00 07:00 Output Total 1200 ml Balance -1200 ml Output Urine Total 1200 ml Laboratory Tests Test 07/31/16 07/31/16 08/01/16 07:24 18:49 08:08 White Blood Count 9.8 TH/MM3 10.1 TH/MM3 Red Blood Count 2.55 MIL/MM3 2.82 MIL/MM3 Hemoglobin 7.8 GM/DL 8.9 GM/DL 8.7 GM/DL Hematocrit 24.7 % 27.2 % 27.5 % Mean Corpuscular Volume 96.9 FL 97.6 FL Mean Corpuscular Hemoglobin 30.6 PG 30.9 PG Mean Corpuscular Hemoglobin 31.5 % 31.6 % Concent Red Cell Distribution Width 15.7 % 15.8 % Platelet Count 138 TH/MM3 166 TH/MM3 Mean Platelet Volume 8.4 FL 8.5 FL Neutrophils (%) (Auto) 79.0 % Lymphocytes (%) (Auto) 14.1 % Monocytes (%) (Auto) 5.1 % Eosinophils (%) (Auto) 1.5 % Basophils (%) (Auto) 0.3 % Neutrophils # (Auto) 7.8 TH/MM3 Lymphocytes # (Auto) 1.4 TH/MM3 Monocytes # (Auto) 0.5 TH/MM3 Eosinophils # (Auto) 0.1 TH/MM3 Basophils # (Auto) 0.0 TH/MM3 CBC Comment DIFF FINAL Differential Comment Laboratory Tests Test 07/31/16 08/01/16 07:24 08:08 Sodium Level 141 MEQ/L 139 MEQ/L Potassium Level 3.7 MEQ/L 4.0 MEQ/L Chloride Level 108 MEQ/L 108 MEQ/L Carbon Dioxide Level 23.0 MEQ/L 19.6 MEQ/L Anion Gap 10 MEQ/L 11 MEQ/L Blood Urea Nitrogen 73 MG/DL 66 MG/DL Creatinine 3.92 MG/DL 3.75 MG/DL Estimat Glomerular Filtration 11 ML/MIN 12 ML/MIN Rate Random Glucose 99 MG/DL 101 MG/DL Calcium Level 8.1 MG/DL 8.7 MG/DL Phosphorus Level 4.1 MG/DL Magnesium Level 2.2 MG/DL Iron Level 65 MCG/DL Total Iron Binding Capacity 147 MCG/DL Percent Iron Saturation 44.2 % Microbiology Date/Time Procedure Status Source Growth 07/31/16 15:48 Stool Occult Blood (SHARON) - Final Complete Stool Stool HEMOCCULT NEGATIVE PHYSICAL EXAMINATION GENERAL: Patient in no acute distress. She is awake and alert and oriented. HEENT: No icterus. Oropharynx moist mucosa without lesions. NECK: Supple. No adenopathy. LUNGS: Clear, decreased breath sounds. HEART: Regular S1-S2 with a systolic murmur at the left sternal border 3/6. ABDOMEN: Bowel sounds present, soft, no tenderness appreciated. EXTREMITIES: No clubbing or cyanosis or edema. The patient has chronic dusky discoloration at the distal tibias. NEURO: Nonfocal. SKIN: No rash. IMPRESSION 1. Gram-negative sepsis. Klebsiella. 2. UTI - Klebsiella. 3. Renal transplant status. 4. Leukocytosis secondary to infection. improved. RECOMMENDATIONS Continue IV Ceftriaxone until 08/09. Orders written on infusion form. Case management to arrange antibiotics. Erickson Oviedo MD Aug 01, 2016 14:03
--- NOTE | 2016-08-01 14:35 | HHI.DCPOC ---
Discharge Care Plan Diagnosis: (1) UTI (urinary tract infection) (2) Bacteremia (3) Acute on chronic kidney failure (4) Anemia in CKD (chronic kidney disease) (5) CAD (coronary artery disease) Goals to Promote Your Health * To prevent worsening of your condition and complications * To maintain your health at the optimal level Directions to Meet Your Goals Take your medications as prescribed Follow your dietary instruction Follow activity as directed Keep your appointments as scheduled Take your immunizations and boosters as scheduled If your symptoms worsen call your PCP, if no PCP go to Urgent Care Center or Emergency Room Smoking is Dangerous to Your Health. Avoid second hand smoke Call the 24-hour hour crisis hotline for domestic abuse at Husam Weaver MD R1 Aug 01, 2016 2:35 pm
[2016-08-01 16:00] VITALS: BP 166/80; PULSE 75; RESP 20; TEMP 96; O2SAT 96
[2016-08-01 21:19] VITALS: BP 156/85; PULSE 73; RESP 18; TEMP 97.2; O2SAT 96
[2016-08-02] VITALS (7 sets, daily range): BP systolic 120–166; BP diastolic 60–86; PULSE 65–72; RESP 18–21; TEMP 97.2–97.9; O2SAT 92–97
[2016-08-02] MEDS: DEXT 5%-NACL 0.9% 1000 ML INJ 1,000 ML IV SCH (04:20)
[2016-08-02] MEDS: TACROLIMUS 1 MG CAP PO SCH (06:00)
[2016-08-02] MEDS: MYCOPHENOLATE MOFETIL 500 MG TAB PO SCH (06:00)
[2016-08-02] MEDS: amLODIPine BESYLATE 5 MG TAB PO SCH (08:55)
[2016-08-02] MEDS: SERTRALINE HCL 50 MG TAB PO SCH (08:55)
[2016-08-02] MEDS: METOPROLOL TARTRATE 100 MG TAB PO SCH (08:55)
[2016-08-02] MEDS: GABAPENTIN 100 MG CAP PO SCH ×2 (08:55→12:57)
[2016-08-02] MEDS: ISOSORBIDE DINITRATE 10 MG TAB PO SCH (08:56)
[2016-08-02] MEDS: FERROUS SULFATE 325 MG (65 MG ELEMENTAL IRON) TAB PO SCH (08:56)
[2016-08-02] MEDS: LACTOBACILLUS ACIDOPHILUS TAB PO SCH (08:56)
[2016-08-02] MEDS: SODIUM CHLORIDE 0.9% FLUSH 10 ML FLUSH IV FLUSH SCH (08:56)
[2016-08-02] MEDS: predniSONE 5 MG TAB PO SCH (08:56)
[2016-08-02 09:42] LABS: HEMATOCRIT 29.2 % (35.0-46.0); MEAN CELL VOLUME 96.6 FL (80.0-100.0); MEAN CORPUSCULAR HEMOGLOBIN 31.3 PG (27.0-34.0); MEAN CORPUSCULAR HGB CONC 32.4 % (32.0-36.0); PLATELET COUNT 195 TH/MM3 (150-450); RED BLOOD COUNT 3.03 MIL/MM3 (4.00-5.30); RED CELL DISTRIBUTION WIDTH 15.9 % (11.6-17.2); REVIEW FLAG FINAL; WHITE BLOOD COUNT 8.8 TH/MM3 (4.0-11.0)
[2016-08-02] MEDS ORDERED: LIDOCAINE 1%/EPINEPHrine 1:100,000 SOLN 20 ML VIAL ONE (10:17)
[2016-08-02 10:23] LABS: BICARBONATE 20.9 MEQ/L (21.0-32.0); MAGNESIUM 2.2 MG/DL (1.5-2.5); POTASSIUM 4.1 MEQ/L (3.5-5.1)
[2016-08-02] MEDS ORDERED: MIDAZOLAM HCL 5 MG/5 ML VIAL ONE (10:37)
[2016-08-02] MEDS ORDERED: fentaNYL CITRATE 250 MCG/5 ML AMP ONE (10:37)
[2016-08-02] MEDS ORDERED: SODIUM CHLORIDE 0.9% FLUSH 10 ML FLUSH IVF PRN (11:15)
--- NOTE | 2016-08-02 11:15 | PD.RAD ---
Post Procedure Progress Note Pre Procedure Diagnosis: (1) UTI (urinary tract infection) Post Procedure Diagnosis: (1) UTI (urinary tract infection) Procedure Date: Aug 02, 2016 Supervising Radiologist: Sohan Leone Proceduralist/Assist: Nicole Santos, RT(R)(CV), Kerry Rosales RT(R)() Anesthesia: Local, Conscious Sedation Plan of Activity Patient to Unit: Nursing Unit Patient Condition: Good See PACS Report for procedural detail/treatment Central Venous Access Device Procedure 1 Right Internal Jugular Tunneled Central Line Placement single lumen [place]: 6 Sohan Leone MD Aug 02, 2016 11:15
--- NOTE | 2016-08-02 11:20 | RADRPT ---
EXAM DATE/TIME: 08/02/2016 11:32 [facility] COMPARISON: No previous studies available for comparison. INDICATIONS : Patient is in need of placement of a right sided Gilliland catheter for medication administration. MEDICAL HISTORY : History of sepsis, UTI, acute on chronic renal failure, HTN, ND. SURGICAL HISTORY : History of renal transplant, cardiac stent. ENCOUNTER: Subsequent ACUITY: 4-6 days PAIN SCORE: 0/10 FLUORO TIME: 0.2 minutes IMAGE SERIES: 1 SEDATION TIME: 15 minutes ACCESS: Right internal jugular vein SEDATION: 1.) 1.5 mg midazolam (Versed) IV 2.) 75 mcg fentanyl (Sublimaze) IV Prophylactic antibiotics were administered with appropriate pre-procedure timing. Vancomycin within 2 hours of procedure, Ancef (or alternative) within 1 hour of procedure. DEVICE: 1. single lumen 6.6Fr Gilliland catheter PROCEDURE : 1. Fluoroscopic guidance. 2. Gilliland catheter placement 3. Conscious sedation with continuous EKG and oximetry monitoring. The risks, benefits and alternatives to the procedure were explained and verbal and written consent w as obtained. The site was prepped in sterile fashion. Full sterile technique was used, including ca p, mask, sterile gloves and gown and a large sterile sheet. Hand hygiene and 2% chlorhexidine and Be tadine was utilized per protocol for cutaneous antisepsis with appropriate dry time for site. The sk in and subcutaneous tissues were infiltrated with local anesthetic solution. With fluoroscopic guidance a dermatotomy was created in the supraclavicular region. A micropuncture set was used to access to the prescribed vein and serial dilatation was performed to accept a Gilliland catheter. A subcutaneous tunnel was created and in antegrade fashion the catheter was pulled throug h the tunnel, cut to the appropriate length and place through the sheath. The catheter was locked wi th heparin and sutured in place. Conscious sedation was performed with the prescribed dosages and duration as above in the presence of an independent trained radiology nurse to assist in the monitoring of the patient. EKG and oximetry remained stable throughout the procedure. The patient tolerated the procedure well and there were no complications. The patient was sent to post anesthesia recovery in stable condition. CONCLUSION: Uncomplicated Gilliland catheter placement as above. Sohan Leone MD on August 02, 2016 at 11:18 Board Certified Radiologist. This report was verified electronically.
[2016-08-02] MEDS: cefTRIAXone INJ 2,000 MG in SODIUM CHLORIDE 0.9% INJ 100 ML IV SCH (12:57)
[2016-08-02] MEDS ORDERED: TACR1 PO (14:32)
--- NOTE | 2016-08-02 14:33 | HHI.FPPN ---
Subjective Remarks No acute events overnight. Denies CP, SOB, N/V, abdominal pain, swelling. ( Husam Weaver MD R1) Objective Vitals Vital Signs Date Time Temp Pulse Resp B/P Pulse Ox O2 Delivery O2 Flow Rate FiO2 08/02/16 11:58 67 18 142/73 92 08/02/16 11:28 68 20 120/60 95 08/02/16 11:13 97.9 72 18 132/62 92 08/02/16 08:00 97.3 66 21 162/85 96 08/02/16 04:00 97.7 70 20 166/86 97 08/02/16 00:57 97.2 65 20 162/82 95 08/01/16 21:19 97.2 73 18 156/85 96 08/01/16 16:00 96.0 75 20 166/80 96 I/O 08/01/16 08/01/16 08/01/16 08/02/16 08/02/16 08/02/16 07:00 15:00 23:00 07:00 15:00 23:00 Intake Total 240 ml 240 ml Balance 240 ml 240 ml Intake Oral 240 ml 240 ml # Voids 6 1 2 # Bowel Movements 2 1 (Husam Weaver MD R1) Result Diagram: 08/02/16 0832 08/02/16 0832 Objective Remarks GENERAL: No distress, sitting up in chair, comfortable SKIN: Large ecchymoses over dorsum of hands and forearms. CARDIOVASCULAR: NRRR, normal S1/S2. II/ systolic murmur heard best in aortic and mitral areas. No S3/S4. RESPIRATORY: CTAB. No crackles or wheezes. GASTROINTESTINAL: Abdomen soft, non-tender, nondistended. Transplanted kidney palpable RLQ, non-tender. No guarding. MUSCULOSKELETAL: No peripheral edema of ankles. R elbow with significant hematoma, point tenderness over olecranon, improved since admission.. NEUROLOGICAL: Awake and alert. Answers questions appropriately. Procedures Gilliland IJ placement 08/02/16 (Husam Weaver MD R1) A/P Assessment and Plan 76 yo female with h/o HTN, Kidney transplant, CKD not on dialysis presenting with fall at home, found to have ALEXIA and UTI. Discharge Planning Home tomorrow after placement of Gilliland IJ, outpatient antibiotic arrangements (Husam Weaver MD R1) Attending Attestation Patient seen and examined. Case reviewed and discussed with the resident team. Agree with plan of care as discussed with me and documented in the resident note. (Noa Blancas MD) Problem List: (1) UTI (urinary tract infection) Status: Acute Plan: UA showing many WBC with clumps. U/S: Renal transplant resistant indices remain at the upper limit of normal. Renal vascular assessment is within normal limits. Mild fullness of collecting system without significant hydronephrosis. There is debris within the urinary bladder. Urine growing Klebsiella Oxytoca. Creatinine 3.92 today, baseline is about 3.5 per chart review. UCx showing Klebsiella sensitive to everything but ampicillin - ID consulted, appreciate assistance - D/C Zosyn and start Rocephin dosed daily - Will need 10 total days IV antibiotics - Arranged outpatient antibiotic treatment via Gilliland IJ placed 08/02 (2) Acute on chronic kidney failure Status: Acute Plan: Baseline Cr approx 3.5, brandon to 4.22 on admission. Improving today. Followed by nephrology as outpatient. Per nephrology, patient trending toward dialysis. Cr today 3.54 (steadily improving since admission) - Nephrology consulted, appreciate assistance - Immunosuppressive therapy for renal transplant (see below) - D/C IVF now that patient hydrating well by mouth - Repeat BMP in 2-3 days, f/u with nephrology outpatient (3) Fall Status: Resolved Plan: 2 days ago, questionable syncope, but more likely mechanical fall. She reports tripping over her feet in the dark, but does say the details are foggy in her memory. Exam significant for 2/[address] head negative for bleeding XR R elbow showing hematoma but no fracture Carotid ultrasound unremarkable Echo showing normal flow across aortic valve, normal valve area, normal EF - Home health PT per physical therapy (4) Kidney transplant recipient Status: Chronic Plan: Nephrology consulted, appreciate assistance - prednisone 5 mg - tacrolimus 1 mg po BID. Tacrolimus level pending - cellcept 500 mg po BID (5) Anemia in CKD (chronic kidney disease) Status: Chronic Plan: Hgb stable, likely patient's baseline given renal disease - pharmacologic DVT ppx contraindicated - track Hgb daily - if other signs of bleeding develop, additional w/u as indicated - Continue home iron (6) HTN (hypertension) Status: Acute Plan: BP stable - Continue home amlodipine (7) Depression Status: Chronic Plan: Stable - Continue home Zoloft (8) CAD (coronary artery disease) Status: Chronic Plan: Symptoms stable - Continue home nitrite, beta axel - Continue home aspirin 81 mg PO daily (9) FEN/PPX Status: Acute Plan: Fluids: PO only at this time Elecs: Monitor and replete PRN Nutrition: Diet 2200 ADA cons carb DVT: ppx contraindicated due to hematoma dw Dr. Blancas (Husam Weaver MD R1) Problem Qualifiers (1) UTI (urinary tract infection): Qualified Code: N39.0 - Urinary tract infection with hematuria, site unspecified (2) Fall: Qualified Code: W19.XXXA - Fall, initial encounter (3) HTN (hypertension): Qualified Code: I10 - Essential hypertension (4) Depression: Qualified Code: F32.9 - Depression, unspecified depression type (5) CAD (coronary artery disease): Qualified Code: I25.10 - Coronary artery disease involving [place] coronary artery of [place] heart without angina pectoris Husam Weaver MD R1 Aug 02, 2016 14:33 Noa Blancas MD Aug 07, 2016 16:11
--- NOTE | 2016-08-02 17:36 | HHI.DS ---
Discharge Summary Admission Date Jul 29, 2016 at 1:56 pm Discharge Date: Aug 02, 2016 Admitting Diagnosis Sepsis, UTI, Acute on Chronic Renal Failure, Hx of Renal Transplant (1) UTI (urinary tract infection) Diagnosis: Principal Plan: UA showing many WBC with clumps. U/S: Renal transplant resistant indices remain at the upper limit of normal. Renal vascular assessment is within normal limits. Mild fullness of collecting system without significant hydronephrosis. There is debris within the urinary bladder. Urine growing Klebsiella Oxytoca. Creatinine 3.92 today, baseline is about 3.5 per chart review. UCx showing Klebsiella sensitive to everything but ampicillin - ID consulted, appreciate assistance - D/C Zosyn and start Rocephin dosed daily - Will need 10 total days IV antibiotics - Arranged outpatient antibiotic treatment via Gilliland IJ placed 08/02 (2) Acute on chronic kidney failure Diagnosis: Secondary Plan: Baseline Cr approx 3.5, brandon to 4.22 on admission. Improving today. Followed by nephrology as outpatient. Per nephrology, patient trending toward dialysis. Cr today 3.54 (steadily improving since admission) - Nephrology consulted, appreciate assistance - Immunosuppressive therapy for renal transplant (see below) - D/C IVF now that patient hydrating well by mouth - Repeat BMP in 2-3 days, f/u with nephrology outpatient (3) Fall Diagnosis: Secondary Plan: 2 days ago, questionable syncope, but more likely mechanical fall. She reports tripping over her feet in the dark, but does say the details are foggy in her memory. Exam significant for 2/[address] head negative for bleeding XR R elbow showing hematoma but no fracture Carotid ultrasound unremarkable Echo showing normal flow across aortic valve, normal valve area, normal EF - Home health PT per physical therapy (4) Kidney transplant recipient Diagnosis: Secondary Plan: Nephrology consulted, appreciate assistance - prednisone 5 mg - tacrolimus 1 mg po BID. Tacrolimus level pending - cellcept 500 mg po BID (5) Anemia in CKD (chronic kidney disease) Diagnosis: Secondary Plan: Hgb stable, likely patient's baseline given renal disease - pharmacologic DVT ppx contraindicated - track Hgb daily - if other signs of bleeding develop, additional w/u as indicated - Continue home iron (6) HTN (hypertension) Diagnosis: Secondary Plan: BP stable - Continue home amlodipine (7) Depression Diagnosis: Secondary Plan: Stable - Continue home Zoloft (8) CAD (coronary artery disease) Diagnosis: Secondary Plan: Symptoms stable - Continue home nitrite, beta axel - Continue home aspirin 81 mg PO daily [facility] Nephrology - Dr. Diana ID - Dr. Oviedo Procedures Gilliland IJ placement 08/02/16 Brief History 76 yo female with h/o CKD s/p renal transplant, now with repeat CKD not on HD, HTN, h/o NH s/p stenting presenting after a fall with subsequent h/o weakness for the last two days. Two days ago she fell at night time when she had to get up to pee. She does not remember anything about the event, but thinks she may have tripped over her feet. She does not recall feeling lightheaded. She denies current CP/SOB. She was not having pain after the fall so did not seek care, though her right elbow did get very swollen. After the fall however she continued to experience fatigue for the last two days. Still no CP/SOB. No dysuria, no abdominal pain. Endorses subjective fever. No sick contacts at home. CBC/BMP: 08/02/16 0832 08/02/16 0832 Significant Findings Laboratory Tests Test 07/31/16 07/31/16 08/01/16 08/02/16 07:24 18:49 08:08 08:32 Red Blood Count 2.55 MIL/MM3 2.82 MIL/MM3 3.03 MIL/MM3 (4.00-5.30) (4.00-5.30) (4.00-5.30) Hemoglobin 7.8 GM/DL 8.9 GM/DL 8.7 GM/DL 9.5 GM/DL (11.6-15.3) (11.6-15.3) (11.6-15.3) (11.6-15.3) Hematocrit 24.7 % 27.2 % 27.5 % 29.2 % (35.0-46.0) (35.0-46.0) (35.0-46.0) (35.0-46.0) Mean Corpuscular Hemoglobin 31.5 % 31.6 % Concent (32.0-36.0) (32.0-36.0) Platelet Count 138 TH/MM3 (150-450) Neutrophils (%) (Auto) 79.0 % (16.0-70.0) Neutrophils # (Auto) 7.8 TH/MM3 (1.8-7.7) Chloride Level 108 MEQ/L 108 MEQ/L (98-107) (98-107) Blood Urea Nitrogen 73 MG/DL (7-18) 66 MG/DL (7-18) 63 MG/DL (7-18) Creatinine 3.92 MG/DL 3.75 MG/DL 3.54 MG/DL (0.50-1.00) (0.50-1.00) (0.50-1.00) Estimat Glomerular Filtration 11 ML/MIN (>89) 12 ML/MIN (>89) 13 ML/MIN (>89) Rate Calcium Level 8.1 MG/DL (8.5-10.1) Total Iron Binding Capacity 147 MCG/DL (250-450) Carbon Dioxide Level 19.6 MEQ/L 20.9 MEQ/L (21.0-32.0) (21.0-32.0) Imaging Last Impressions Catheter Placement X-Ray 08/02/16 0000 Signed Impressions: Service Date/Time: Tuesday, August 02, 2016 11:32 - CONCLUSION: Uncomplicated Gilliland catheter placement as above. Sohan Leone MD Head CT 07/29/16 120 Signed Impressions: Service Date/Time: Friday, July 29, 2016 13:06 - CONCLUSION: No acute disease. Dmitry Hanna MD Elbow X-Ray 07/29/16 120 Signed Impressions: Service Date/Time: Friday, July 29, 2016 12:58 - CONCLUSION: Soft tissue swelling. Dmitry Hanna MD Chest X-Ray 07/29/16 1209 Signed Impressions: Service Date/Time: Friday, July 29, 2016 13:03 - CONCLUSION: Stable chest x-ray without an acute finding identified. Jeffrey De Jesus MD Cervical Spine CT 07/29/16 120 Signed Impressions: Service Date/Time: Friday, July 29, 2016 13:09 - CONCLUSION: Severe degenerative changes without evidence for acute fracture. Dmitry Hanna MD Renal Ultrasound 07/29/16 0000 Signed Impressions: Service Date/Time: Friday, July 29, 2016 14:10 - CONCLUSION: 1. Renal transplant resistive indices remain at the upper limits for normal. Otherwise, renal vascular assessment is within normal limits. 2. There is mild fullness of the collecting system without significant hydronephrosis. 3. There is debris within the urinary bladder. Jeffrey De Jesus MD Carotid Artery Ultrasound 07/29/16 0000 Signed Impressions: Service Date/Time: Friday, July 29, 2016 16:06 - CONCLUSION: Atherosclerosis without evidence of hemodynamically significant stenosis. Dmitry Hanna MD PE at Discharge GENERAL: No distress, sitting up in chair, comfortable SKIN: Large ecchymoses over dorsum of hands and forearms. CARDIOVASCULAR: NRRR, normal S1/S2. II/ systolic murmur heard best in aortic and mitral areas. No S3/S4. RESPIRATORY: CTAB. No crackles or wheezes. GASTROINTESTINAL: Abdomen soft, non-tender, nondistended. Transplanted kidney palpable RLQ, non-tender. No guarding. MUSCULOSKELETAL: No peripheral edema of ankles. R elbow with significant hematoma, point tenderness over olecranon, improved since admission.. NEUROLOGICAL: Awake and alert. Answers questions appropriately. Hospital Course 76 yo female with h/o HTN and renal transplant admitted for altered mental status due to UTI. Initially started on vancomycin and Zosyn due to h/o UTI with resistant/atypical organisms and immunosuppressed state. Culture grew Klebsiella sensitive to everything but ampicillin, and antibiotic coverage narrowed to Rocephin by ID. Recommended IV antibiotics for 10 total days, arranged on discharge. Patient's mental status returned to baseline day 2 of hospital stay. Nephrology consulted due to [id number] renal failure in transplant patient. IV fluids were given per nephrology recs and ALEXIA resolved, likely was due to dehydration and acute infection. Gilliland IJ placed by IR on for outpatient administration of treatment. Due to questionable history of syncope prior to admission, work-up including carotid U/S and echocardiogram was performed. Carotid U/S showed no significant stenosis, and Echo showed normal aortic valve area and velocity across valve as well as normal EF. Questionable syncopal event likely related to altered mental status from UTI. Pt Condition on Discharge: Good Discharge Disposition: Disch w/ Home Health Serv Discharge Instructions DIET: Follow Instructions for: Diabetic Diet Activities you can perform: Regular-No Restrictions Follow up Referrals: Nephrology - 1 Week PCP Follow-up - 2 Weeks with [facility],Physician New Orders: BASIC METABOLIC PROF - 2-3 Days New Medications: Tacrolimus (Prograf) 1 Mg Cap 1 MG PO BID@ #60 CAP Continued Medications: Amlodipine (Norvasc) 5 Mg Tab 10 MG PO DAILY Blood Pressure Management #30 TAB Ferrous Sulfate (Ferrous Sulfate) 325 Mg Tab 325 MG PO DAILY Build Red Blood Cells #30 TAB Gabapentin (Gabapentin) 100 Mg Cap 100 MG PO TID #90 Ref 0 CAP Isosorbide Dinitrate (Isosorbide Dinitrate) 10 Mg Tab 10 MG PO DAILY #60 Ref 0 TAB Lactobacillus Acidophilus (Lactinex) 1 Chew 1 TAB CHEW DAILY Nutritional Supplement #30 Ref 0 TAB Metoprolol Tartrate (Metoprolol Tartrate) 100 Mg Tab 100 MG PO BID #60 Ref 0 TAB Mycophenolate (Mycophenolate) 500 Mg Tab 500 MG PO BID Immunosuppression #120 Ref 0 TAB Potassium Chloride ER (K-Tab) 20 Meq Tab 20 MEQ PO DAILY Electrolyte Replacement #30 Ref 0 TAB Prednisone (Prednisone) 5 Mg Tab 5 MG PO DAILY Ref 0 TAB Sertraline (Sertraline) 50 Mg Tab 50 MG PO DAILY #30 Ref 0 TAB Sodium Bicarbonate (Sodium Bicarbonate) 650 Mg Tab 650 MG PO TID Electrolyte Replacement #90 TAB Discontinued Medications: Tacrolimus (Tacrolimus) 1 Mg Cap 2 MG PO DAILY IN THE MORNING Prevent Transplant Reject #120 Ref 0 CAP Tacrolimus (Prograf) 1 Mg Cap 1 MG PO HS Prevent Transplant Reject #30 Ref 0 CAP Tacrolimus (Tacrolimus) 0.5 Mg Cap 0.5 MG PO HS Prevent Transplant Reject #60 Ref 0 CAP Husam Weaver MD R1 Aug 02, 2016 5:36 pm
[2016-08-03] MEDS ORDERED: SODIUM CHLORIDE 0.9% FLUSH 10 ML FLUSH IVF SCH (09:00)
== END 2016-08-02 18:35 | disposition home health service (06) | DRG 872 ==
LOC: NEPE 11:18 → NEDA 13:56 → N05B 17:26
PROVIDERS: ADMIT Family Medicine; ATTEND Family Medicine
PROC: 05H533Z Insertion of Infusion Device into Right Subclavian Vein, Percutaneous Approach (ICD-10-PCS; principal; 2016-08-02)
PROC: B516ZZA Fluoroscopy of Right Subclavian Vein, Guidance (ICD-10-PCS; 2016-08-02)
DX: A41.50 Gram-negative sepsis, unspecified (principal); N17.9 Acute kidney failure, unspecified; D63.1 Anemia in chronic kidney disease; Z94.0 Kidney transplant status; S50.11XA Contusion of right forearm, initial encounter; N12 Tubulo-interstitial nephritis, not specified as acute or chronic; I12.0 Hypertensive chronic kidney disease with stage 5 chronic kidney disease or end stage renal disease; N18.5 Chronic kidney disease, stage 5; E11.22 Type 2 diabetes mellitus with diabetic chronic kidney disease; F32.9 Major depressive disorder, single episode, unspecified; I35.0 Nonrheumatic aortic (valve) stenosis; E86.0 Dehydration; I25.10 Atherosclerotic heart disease of native coronary artery without angina pectoris; K21.9 Gastro-esophageal reflux disease without esophagitis; Y92.009 Unspecified place in unspecified non-institutional (private) residence as the place of occurrence of the external cause; I25.2 Old myocardial infarction; E78.5 Hyperlipidemia, unspecified; S60.222A Contusion of left hand, initial encounter; S60.221A Contusion of right hand, initial encounter; S50.12XA Contusion of left forearm, initial encounter; G47.00 Insomnia, unspecified; M19.90 Unspecified osteoarthritis, unspecified site; W01.0XXA Fall on same level from slipping, tripping and stumbling without subsequent striking against object, initial encounter; Y92.002 Bathroom of unspecified non-institutional (private) residence as the place of occurrence of the external cause; Z87.440 Personal history of urinary (tract) infections; Z87.891 Personal history of nicotine dependence; Z88.1 Allergy status to other antibiotic agents; Z95.5 Presence of coronary angioplasty implant and graft
CPT/HCPCS: 36558; 70450; 71010; 72125; 73080; 76776; 76937; 77001; 80048; 80053; 80197; 80202; 81001; 82272; 82948; 83540; 83550; 83605; 83735; 84100; 85007; 85014; 85018; 85025; 85027; 85610; 85730; 87040; 87077; 87086; 87186; 87205; 93306; 93880; 96360; 99152; C1751; J0696; J1642; J2250; J2543; J3010; J3370; J7030; J7040; J7042; J7050; J7507; J7512; J7517; P9612; Q4081

== ENCOUNTER 2017-03-06 13:44 | Observation (INO) | payer MEDICARE, OTHER ==
[~2017-03-06] VITALS: Ht 124.5 cm; Wt 49.5 kg
[2017-03-06] VITALS (7 sets, daily range): BP systolic 146–197; BP diastolic 67–91; PULSE 64–67; RESP 16–20; TEMP 97.5–98; O2SAT 96–100
[~2017-03-06 13:44] MED LIST changes: -AMPI500C8 PO; -TACR0.5C PO; -TACR1CAP PO
[2017-03-06] MEDS ORDERED: SODIUM CHLORIDE 0.9% FLUSH 5 ML FLUSH IV FLUSH PRN (14:30)
[2017-03-06] MEDS ORDERED: AMBI10TA PO (14:42)
[2017-03-06] MEDS ORDERED: FURO1TAB62 PO (14:42)
[2017-03-06] MEDS ORDERED: ZOLO50TA PO (14:42)
[2017-03-06] MEDS ORDERED: ASPI81CH7 CHEW (14:42)
[2017-03-06] MEDS ORDERED: BUSP15TA PO (14:42)
[2017-03-06] MEDS ORDERED: LIPI20TA PO (14:42)
[2017-03-06] MEDS ORDERED: SYNT25TA PO (14:42)
[2017-03-06 15:00] LABS: AUTOMATED NEUTROPHIL # 3.9 TH/MM3 (1.8-7.7); BASOPHIL # 0.1 TH/MM3 (0-0.2); EOSINOPHIL # 0.2 TH/MM3 (0-0.4); EOSINOPHIL % 3.3 % (0.0-4.0); HEMATOCRIT 34.9 % (35.0-46.0); HEMO FLAGS DIFF FINAL; LYMPH % 31.1 % (9.0-44.0); LYMPHOCYTE # 2.3 TH/MM3 (1.0-4.8); MEAN CELL VOLUME 103.1 FL (80.0-100.0); MONO % 11.1 % (0.0-8.0); NEUT % 53.5 % (16.0-70.0); PLATELET COUNT 159 TH/MM3 (150-450); RED BLOOD COUNT 3.38 MIL/MM3 (4.00-5.30); RED CELL DISTRIBUTION WIDTH 14.7 % (11.6-17.2); WHITE BLOOD COUNT 7.2 TH/MM3 (4.0-11.0)
--- NOTE | 2017-03-06 15:19 | RADRPT ---
EXAM DATE/TIME: 03/06/2017 14:57 [facility] COMPARISON: CT BRAIN W/O CONTRAST, July 29, 2016, 13:06. INDICATIONS : Altered mental status. RADIATION DOSE: 31.56 CTDIvol (mGy) MEDICAL HISTORY : Cardiovascular disease. Hernia, hiatal. Diabetes mellitus type 2. SURGICAL HISTORY : None. ENCOUNTER: Initial ACUITY: 1 day PAIN SCALE: 0/10 LOCATION: cranial TECHNIQUE: Multiple contiguous axial images were obtained of the head. Using automated exposure control and adj ustment of the mA and/or kV according to patient size, radiation dose was kept as low as reasonably a chievable to obtain optimal diagnostic quality images. DICOM format image data is available electro nically for review and comparison. FINDINGS: CEREBRUM: Mild to moderate diffuse cerebral volume loss. The ventricles are normal for degree of atrophy. No e vidence of midline shift, mass lesion, hemorrhage or acute infarction. No extra-axial fluid collecti ons are seen. POSTERIOR FOSSA: The cerebellum and brainstem are intact. The 4th ventricle is midline. The cerebellopontine angle i s unremarkable. EXTRACRANIAL: The visualized portion of the orbits is intact. SKULL: The calvaria is intact. No evidence of skull fracture. CONCLUSION: 1. No acute intracranial abnormality or interval change. Stew Martines MD on March 06, 2017 at 15:14 Board Certified Radiologist. This report was verified electronically.
[2017-03-06 15:22] LABS: APTT (PATIENT) 25.3 SEC (24.3-30.1); PROTHROMBIN TIME - PATIENT 10.5 SEC (9.8-11.6)
[2017-03-06 15:33] LABS: ALT (GPT) 29 U/L (10-53); ANION GAP 11 MEQ/L (5-15); AST (GOT) 26 U/L (15-37); BICARBONATE 26.5 MEQ/L (21.0-32.0); BLOOD UREA NITROGEN 35 MG/DL (7-18); CHLORIDE 105 MEQ/L (98-107); GLOMERULAR FILTRATION RATE 13 ML/MIN (>89); POTASSIUM 4.1 MEQ/L (3.5-5.1); SODIUM (NA) 142 MEQ/L (136-145)
--- NOTE | 2017-03-06 15:33 | RADRPT ---
EXAM DATE/TIME: 03/06/2017 15:20 [facility] COMPARISON: CHEST SINGLE AP, July 29, 2016, 13:03. INDICATIONS : Syncope, short of breath MEDICAL HISTORY : Cardiovascular disease. Diabetes mellitus type II. Hiatal hernia. SURGICAL HISTORY : None. ENCOUNTER: Initial ACUITY: 1 day PAIN SCORE: 0/10 LOCATION: Bilateral chest FINDINGS: Mild left lower lobe airspace disease and probable trace associated effusion. Subtle right lung base airspace disease with mild blunting of the right costophrenic angle may reflect trace right-sided ple ural effusion. Cardiac silhouette is in the upper limits of normal in size. Remainder of the exam is unchanged. CONCLUSION: 1. Mild left lower lobe airspace disease and associated probable trace pleural effusion. 2. Subtle right lung base airspace disease and questionable trace associated effusion. 3. Differential considerations include aspiration and pneumonia in the proper clinical setting. Stew Martines MD on March 06, 2017 at 15:29 Board Certified Radiologist. This report was verified electronically.
[2017-03-06 15:43] LABS: ALKALINE PHOSPHATASE 81 U/L (45-117); CREATINE KINASE 61 U/L (26-192); TOTAL BILIRUBIN ADULT 0.4 MG/DL (0.2-1.0)
[2017-03-06] MEDS ORDERED: cefTRIAXone INJ 1,000 MG in SODIUM CHLORIDE 0.9% INJ 100 ML IV ONE (16:00)
[2017-03-06] MEDS ORDERED: METOPROLOL TARTRATE 100 MG TAB PO ONE (16:00)
[2017-03-06] MEDS ORDERED: AZITHROMYCIN INJ 500 MG in SODIUM CHLOR 0.9% 250 ML INJ 250 ML IV ONE (16:00)
--- NOTE | 2017-03-06 16:14 | PD ---
HPI Chief Complaint: Altered Mental Status Time Seen by Provider: 14:05 Travel History International Travel<30 days: No Contact w/Intl Traveler<30days: No Traveled to known affect area: No History of Present Illness HPI Patient is a 77 year old female who comes in because of an episode of unresponsiveness at home. Her found her slumped over in a chair. Per EMS, she was fine in the ambulance. She has history of renal transplant that has recently failed and she is back on dialysis, last dialyzed yesterday. She currently has no symptoms. She says she is always tired. She just came down here from [place] and during the trip, her medications spilled out of their bottles, so she is trying to sort them out, but has not been taking them. She denies chest pain, SOB. She denies nausea or vomiting. PFSH Past Medical History Hx Anticoagulant Therapy: Yes (PLAVIX) Arthritis: Yes Blood Disorders: No Heart Rhythm Problems: No Cancer: No Cardiovascular Problems: Yes (MURMUR, DE, STENTS) High Cholesterol: Yes Chemotherapy: No Chest Pain: No Congestive Heart Failure: No Cerebrovascular Accident: No Diabetes: Yes Patient Takes Glucophage: No Diminished Hearing: No Endocrine: Yes Gastrointestinal Disorders: Yes (GERD) GERD: Yes Genitourinary: Yes Hiatal Hernia: Yes ("double hernia") Hypertension: Yes Immune Disorder: No Insomnia: Yes Medical other: Yes (KIDNEY TRANSPLANT) Musculoskeletal: Yes Neurologic: No Psychiatric: No Reproductive: No Respiratory: No Immunizations Current: Yes Myocardial Infarction: Yes Renal Failure: Yes (ONLY 1 KIDNEY ) Thyroid Disease: Yes ?: Not Menopausal: Yes Past Surgical History Body Medical Devices: 2 stents, "screws in toes" Cardiac Surgery: Yes (2 stents) Coronary Stent: Yes Eye Surgery: Yes (eyelid reconstruction) Genitourinary Surgery: Yes (KIDNEY TRANSPLANT 2004) Hysterectomy: No Other Surgery: Yes Social History Alcohol Use: Yes (WEEKLY) Tobacco Use: No (quit 30 yrs ago) Substance Use: No Allergies-Medications (Allergen,Severity, Reaction): Coded Allergies: ciprofloxacin (Unverified Allergy, Mild, Itching, 03/06/17) Reported Meds & Prescriptions Reported Meds & Active Scripts Active Prograf (Tacrolimus) 1 Mg Cap 1 Mg PO BID@ Norvasc (Amlodipine Besylate) 5 Mg Tab 10 Mg PO DAILY Sodium Bicarbonate 650 Mg Tab 650 Mg PO TID Reported Ambien (Zolpidem Tartrate) 10 Mg Tab 10 Mg PO HS PRN Lasix (Furosemide) 20 Mg Tab 20 Mg PO DAILY Aspirin Children's (Aspirin) 81 Mg Chew 81 Mg CHEW DAILY Lipitor (Atorvastatin Calcium) 20 Mg Tab 20 Mg PO HS Zoloft (Sertraline HCl) 50 Mg Tab 50 Mg PO DAILY Buspirone (Buspirone HCl) 15 Mg Tab 15 Mg PO BID Synthroid (Levothyroxine Sodium) 25 Mcg Tab 25 Mcg PO DAILY K-Tab (Potassium Chloride) 20 Meq Tab 20 Meq PO DAILY Gabapentin 100 Mg Cap 100 Mg PO TID Metoprolol Tartrate 100 Mg Tab 100 Mg PO BID Prednisone 5 Mg Tab 5 Mg PO DAILY Isosorbide Dinitrate 10 Mg Tab 10 Mg PO DAILY Review of Systems Except as stated in HPI: all other systems reviewed are Neg General / Constitutional: No: Fever, Chills HENT: No: Headaches, Lightheadedness Cardiovascular: No: Chest Pain or Discomfort Respiratory: No: Shortness of Breath Gastrointestinal: No: Nausea, Vomiting Musculoskeletal: No: Myalgias, Edema Skin: No Rash, No Change in Pigmentation Neurologic: No: Weakness, Dizziness Physical Exam Narrative GENERAL: Awake and alert, in no acute distress. SKIN: Focused skin assessment warm/dry. Bruising to both arms (chronic). HEAD: Atraumatic. Normocephalic. EYES: Pupils equal and round. No scleral icterus. No injection or drainage. ENT: No nasal bleeding or discharge. NECK: Trachea midline. No JVD. CARDIOVASCULAR: Regular rate and rhythm. No murmur appreciated. RESPIRATORY: No accessory muscle use. Clear to auscultation. Breath sounds equal bilaterally. GASTROINTESTINAL: Abdomen soft, non-tender, nondistended. MUSCULOSKELETAL: No obvious deformities. No clubbing. No cyanosis. No edema. NEUROLOGICAL: Awake and alert. No obvious cranial nerve deficits. Motor grossly within normal limits. Normal speech. PSYCHIATRIC: Appropriate mood and affect; insight and judgment normal. Data Data Last Documented VS Vital Signs Date Time Temp Pulse Resp B/P (MAP) Pulse Ox O2 Delivery O2 Flow Rate FiO2 03/06/17 16:00 66 20 197/77 (117) 100 Room Air 03/06/17 13:54 97.8 Orders Orders Electrocardiogram (03/06/17 14:16) Ammonia (03/06/17 14:16) Complete Blood Count With Diff (03/06/17 14:16) Comprehensive Metabolic Panel (03/06/17 14:16) Creatine Kinase (Cpk) (03/06/17 14:16) Prothrombin Time / Inr (Pt) (03/06/17 14:16) Act Partial Throm Time (Ptt) (03/06/17 14:16) Troponin I (03/06/17 14:16) Thyroid Stimulating Hormone (03/06/17 14:16) Urinalysis - C+S If Indicated (03/06/17 14:16) Lactic Acid Sepsis Protocol (03/06/17 14:16) Chest, Single Ap (03/06/17 14:16) Ct Brain W/O Iv Contrast(Rout) (03/06/17 14:16) Blood Glucose (03/06/17 14:16) Ecg Monitoring (03/06/17 14:16) Iv Access Insert/Monitor (03/06/17 14:16) Oximetry (03/06/17 14:16) Sodium Chloride 0.9% Flush (Ns Flush) (03/06/17 14:30) Ceftriaxone Inj (Rocephin Inj) (03/06/17 16:00) Azithromycin Inj (Zithromax Inj) (03/06/17 16:00) Metoprolol Tartrate (Lopressor) (03/06/17 16:00) Admit Order (Ed Use Only) (03/06/17 ) Labs Laboratory Tests Test 03/06/17 14:25 White Blood Count 7.2 TH/MM3 Red Blood Count 3.38 MIL/MM3 Hemoglobin 11.2 GM/DL Hematocrit 34.9 % Mean Corpuscular Volume 103.1 FL Mean Corpuscular Hemoglobin 33.0 PG Mean Corpuscular Hemoglobin Concent 32.0 % Red Cell Distribution Width 14.7 % Platelet Count 159 TH/MM3 Mean Platelet Volume 8.1 FL Neutrophils (%) (Auto) 53.5 % Lymphocytes (%) (Auto) 31.1 % Monocytes (%) (Auto) 11.1 % Eosinophils (%) (Auto) 3.3 % Basophils (%) (Auto) 1.0 % Neutrophils # (Auto) 3.9 TH/MM3 Lymphocytes # (Auto) 2.3 TH/MM3 Monocytes # (Auto) 0.8 TH/MM3 Eosinophils # (Auto) 0.2 TH/MM3 Basophils # (Auto) 0.1 TH/MM3 CBC Comment DIFF FINAL Differential Comment Prothrombin Time 10.5 SEC Prothromb Time International Ratio 1.0 RATIO Activated Partial Thromboplast Time 25.3 SEC Blood Urea Nitrogen 35 MG/DL Creatinine 3.55 MG/DL Random Glucose 74 MG/DL Total Protein 6.1 GM/DL Albumin 3.4 GM/DL Calcium Level 8.1 MG/DL Alkaline Phosphatase 81 U/L Aspartate Amino Transf (AST/SGOT) 26 U/L Alanine Aminotransferase (ALT/SGPT) 29 U/L Total Bilirubin 0.4 MG/DL Sodium Level 142 MEQ/L Potassium Level 4.1 MEQ/L Chloride Level 105 MEQ/L Carbon Dioxide Level 26.5 MEQ/L Anion Gap 11 MEQ/L Estimat Glomerular Filtration Rate 13 ML/MIN Lactic Acid Level 0.9 mmol/L Ammonia 17 MCMOL/L Total Creatine Kinase 61 U/L Troponin I 0.02 NG/ML Thyroid Stimulating Hormone 3rd Gen 3.510 uIU/ML MDM Medical Decision Making Medical Screen Exam Complete: Yes Emergency Medical Condition: Yes Medical Record Reviewed: Yes Interpretation(s) ECG shows LBBB Differential Diagnosis Sepsis vs stroke vs electrolyte abnormalities vs ACS Narrative Course Patient is a 77 year old female who comes in after an episode of unresponsiveness. Exam shows no acute abnormalities. Patient is hypertensive, but has not taken her blood pressure medication today. IV established, labs sent. Labs show a Cr of 3.55, no other abnormalities. Given her Metoprolol. CXR concerning for pneumonia. Treated with antibiotics and admitted for further management. Diagnosis Primary Impression: Pneumonia Qualified Codes: J18.9 - Pneumonia, unspecified organism Additional Impression: HTN (hypertension) Qualified Codes: I10 - Essential (primary) hypertension Admitting Information Admitting Physician Requests: Admit Kianna Razo MD Mar 06, 2017 16:14
[2017-03-06] MEDS ORDERED: LACTULOSE SYRUP 20 GM/30 ML CUP PO PRN (17:15)
[2017-03-06] MEDS ORDERED: MAGNESIUM HYDROXIDE SUSP 30 ML CUP PO PRN (17:15)
[2017-03-06] MEDS ORDERED: SODIUM CHLORIDE 0.9% FLUSH 10 ML FLUSH IV FLUSH PRN (17:15)
[2017-03-06] MEDS ORDERED: BISACODYL 10 MG SUPP RECTAL PRN (17:15)
[2017-03-06] MEDS ORDERED: SENNOSIDES 8.6 MG TAB PO PRN (17:15)
[2017-03-06] MEDS ORDERED: NALOXONE HCL 0.4 MG/ML AMP IV PUSH PRN (17:15)
[2017-03-06 17:27] LABS: BLOOD, URINE NEG (NEG); GLUCOSE,URINE NEG (NEG); KETONE, URINE NEG (NEG); NITRITE,URINE NEG (NEG); PH, URINE 7.5 (5.0-8.5); SQUAMOUS EPITHELIAL CELL URINE <1 /hpf (0-5); URINE COLOR YELLOW (YELLW/STRAW)
[2017-03-06 17:28] LABS: CULTURE IF INDICATED CATH CULTURE NOT IND
--- NOTE | 2017-03-06 17:57 | HHI.HP ---
HPI Service Family Medicine Primary Care Physician Non-Staff Admission Diagnosis pneumonia, AMS Diagnoses: International Travel<30 Days: No Contact w/Intl Traveler<30days: No Known Affected Area: No History of Present Illness Patient is a 77-year-old Female with PMHx of ESRD (on HD), s/p kidney transplant , HTN brought in by EMS due to AMS witness by . was at bedside and provide most of the history. stated around noon he left their home for about an hour and when he returned found her siting and she appeared to be sleeping. However, she did not respond to him when tried to wake her up by calling her name. He also reports she was confused when she woke up. He called 911 because he was concerned this was a sign of a possible infection. endorses she had normal respirations and denies observing any convulsions or foaming at the mouth during this time. Patient states that she does not remember how she came to the emergency room. reports she had a similar episode of unresponsiveness a long time ago, and pt was also brought to the hospital but he does not remember the diagnosis. Currently patient and both agree that she is now at her normal mental status baseline. Pt has no other concerns. Of note patient gctid23kg of ambien QHS. stated pt has drowsy side- effects to ambien in the past. About a wk ago pt also started a medication to reduce the amount of phosphorus in her system (does not remember name). Denies any falls, hitting her head, biting her tongue, LOC, urine or bowel incontinence. Denies SOB, CP, fever, cough, chills, abdominal pain. Pt stated she did not take any of her daily medication this morning. Of note patient splits her residence between [place] and [place]. She arrived to [place] yesterday afternoon around 2 PM after a [address] from [place], drove about 8hr/day. She received dialysis yesterday. (Miranda Edouard MD, R1) Review of Systems Constitutional: DENIES: Fever, Weight loss, Chills, Change in appetite Eyes: DENIES: Blurred vision, Vision loss Ears, nose, mouth, throat: DENIES: Nasal discharge, Throat pain Respiratory: DENIES: Cough, Snoring, Sputum production, Shortness of breath Cardiovascular: COMPLAINS OF: Lower Extremity Edema, DENIES: Chest pain, Palpitations, Syncope Gastrointestinal: COMPLAINS OF: Bloody stools (this past wk Pt stated she notive a streak of bright red blood in her towel paper after a BM. ), DENIES: Abdominal pain, Black stools, Nausea Musculoskeletal: DENIES: Back pain Neurologic: DENIES: Headache, Seizures Psychiatric: COMPLAINS OF: Confusion (Miranda Edouard MD, R1) Past Family Social History Past Medical History HTN Neuropathy Anxiety ESRD on HD mon,mon,mon hx of hemorrhoids Past Surgical History Right kidney transplant- 2004 av fistula revision- Nov 2016 possible heart stents? (Miranda Edouard MD, R1) Allergies: Coded Allergies: ciprofloxacin (Unverified Allergy, Mild, Itching, 03/06/17) Family History Father- , from heart attack at age 69yo Mother- Sister- , lung CA at age 72yo Son- heart condition with pace maker Social History Patient splits residence between [place] and [place] Lives with Former smoker, quit Denies EoTH or illicit drug use (Miranda Edouard MD, R1) Physical Exam Vital Signs Vital Signs Date Time Temp Pulse Resp B/P (MAP) Pulse Ox O2 Delivery O2 Flow Rate FiO2 03/06/17 17:07 67 18 177/87 (117) 100 Room Air 03/06/17 16:00 66 20 197/77 (117) 100 Room Air 03/06/17 14:34 66 20 149/89 (109) 98 Room Air 03/06/17 13:54 97.8 67 16 146/91 (109) 100 Physical Exam GENERAL: This is a well-nourished, well-developed patient, in no apparent distress. SKIN: No rashes, or lesions. Cool and dry. Ecchymoses, erythema and swelling on Left arm with av fistula, per pt chronic issue since Nov 2016. LE skin discoloration, chronic issue. HEAD: Atraumatic. Normocephalic. No temporal or scalp tenderness. EYES: Pupils equal round and reactive. Extraocular motions intact. No scleral icterus. No injection or drainage. ENT: Nose without bleeding, purulent drainage or septal hematoma. Throat without erythema, tonsillar hypertrophy or exudate. Uvula midline. Airway patent. NECK: Trachea midline. No JVD or lymphadenopathy. Supple, nontender, no meningeal signs. CARDIOVASCULAR: Normal s1 and s2. Regular rate and rhythm without murmurs, gallops, or rubs. RESPIRATORY: Crackles at lower lung bases BL. GASTROINTESTINAL: Abdomen soft, non-tender, nondistended. No hepato-splenomegaly , or palpable masses. No guarding. MUSCULOSKELETAL: Extremities without clubbing, cyanosis. +1 LE edema BL. No joint tenderness, effusion, or edema noted. No calf tenderness. Negative Homans sign bilaterally. +2 DP pulse BL. NEUROLOGICAL: Awake and alert. Cranial nerves II through XII intact. Motor and sensory grossly within normal limits. Five out of 5 muscle strength in all muscle groups. Normal speech. Laboratory Laboratory Tests Test 03/06/17 14:25 03/06/17 17:15 White Blood Count 7.2 Red Blood Count 3.38 Hemoglobin 11.2 Hematocrit 34.9 Mean Corpuscular Volume 103.1 Mean Corpuscular Hemoglobin 33.0 Mean Corpuscular Hemoglobin Concent 32.0 Red Cell Distribution Width 14.7 Platelet Count 159 Mean Platelet Volume 8.1 Neutrophils (%) (Auto) 53.5 Lymphocytes (%) (Auto) 31.1 Monocytes (%) (Auto) 11.1 Eosinophils (%) (Auto) 3.3 Basophils (%) (Auto) 1.0 Neutrophils # (Auto) 3.9 Lymphocytes # (Auto) 2.3 Monocytes # (Auto) 0.8 Eosinophils # (Auto) 0.2 Basophils # (Auto) 0.1 CBC Comment DIFF FINAL Differential Comment Prothrombin Time 10.5 Prothromb Time International Ratio 1.0 Activated Partial Thromboplast Time 25.3 Blood Urea Nitrogen 35 Creatinine 3.55 Random Glucose 74 Total Protein 6.1 Albumin 3.4 Calcium Level 8.1 Alkaline Phosphatase 81 Aspartate Amino Transf (AST/SGOT) 26 Alanine Aminotransferase (ALT/SGPT) 29 Total Bilirubin 0.4 Sodium Level 142 Potassium Level 4.1 Chloride Level 105 Carbon Dioxide Level 26.5 Anion Gap 11 Estimat Glomerular Filtration Rate 13 Lactic Acid Level 0.9 Ammonia 17 Total Creatine Kinase 61 Troponin I 0.02 Thyroid Stimulating Hormone 3rd Gen 3.510 Urine Color YELLOW Urine Turbidity CLEAR Urine pH 7.5 Urine Specific [place] 1.007 Urine Protein 100 Urine Glucose (UA) NEG Urine Ketones NEG Urine Occult Blood NEG Urine Nitrite NEG Urine Bilirubin NEG Urine Urobilinogen LESS THAN 2.0 Urine Leukocyte Esterase SMALL Urine RBC 1 Urine WBC 4 Urine Squamous Epithelial Cells <1 (Miranda Edouard MD, R1) Result Diagram: 03/06/17 1425 03/06/17 1425 Imaging Last Impressions Head CT 03/06/17 1416 Signed Impressions: Service Date/Time: Monday, March 06, 2017 14:57 - CONCLUSION: 1. No acute intracranial abnormality or interval change. Stew Martines MD Chest X-Ray 03/06/17 141 Signed Impressions: Service Date/Time: Monday, March 06, 2017 15:20 - CONCLUSION: 1. Mild left lower lobe airspace disease and associated probable trace pleural effusion. 2. Subtle right lung base airspace disease and questionable trace associated effusion. 3. Differential considerations include aspiration and pneumonia in the proper clinical setting. Stew Martines MD (Miranda Edouard MD, R1) Caprini VTE Risk Assessment Caprini VTE Risk Assessment: Mod/High Risk (score >= 2) Caprini Risk Assessment Model Point Value = 1 Point Value = 2 Point Value = 3 Point Value = 5 Age 41-60 Minor surgery BMI > 25 kg/m2 Swollen legs Varicose veins or History of unexplained or recurrent spontaneous Oral contraceptives or hormone replacement Sepsis (< 1 month) Serious lung disease, including pneumonia (< 1 month) Abnormal pulmonary function Acute myocardial infarction Congestive heart failure (< 1 month) History of inflammatory bowel disease Medical patient at bed rest Age 61-74 Arthroscopic surgery Major open surgery (> 45 min) Laparoscopic surgery (> 45 min) Malignancy Confined to bed (> 72 hours) Immobilizing plaster cast Central venous access Age >= 75 History of VTE Family history of VTE Factor V Leiden Prothrombin [id number] Lupus anticoagulant Anticardiolipin antibodies Elevated serum homocysteine Heparin-induced thrombocytopenia Other congenital or acquired thrombophilia Stroke (< 1 month) Elective arthroplasty Hip, pelvis, or leg fracture Acute spinal cord injury (< 1 month) Prophylaxis Regimen Total Risk Factor Score Risk Level Prophylaxis Regimen 0-1 Low Early ambulation 2 Moderate Order ONE of the following: *Sequential Compression Device (SCD) *Heparin 5000 units SQ BID 3-4 Higher Order ONE of the following medications: *Heparin 5000 units SQ TID *Enoxaparin/Lovenox 40 mg SQ daily (WT < 150 kg, CrCl > 30 mL/min) *Enoxaparin/Lovenox 30 mg SQ daily (WT < 150 kg, CrCl > 10-29 mL/min) *Enoxaparin/Lovenox 30 mg SQ BID (WT < 150 kg, CrCl > 30 mL/min) AND/OR *Sequential Compression Device (SCD) 5 or more Highest Order ONE of the following medications: *Heparin 5000 units SQ TID (Preferred with Epidurals) *Enoxaparin/Lovenox 40 mg SQ daily (WT < 150 kg, CrCl > 30 mL/min) *Enoxaparin/Lovenox 30 mg SQ daily (WT < 150 kg, CrCl > 10-29 mL/min) *Enoxaparin/Lovenox 30 mg SQ BID (WT < 150 kg, CrCl > 30 mL/min) AND *Sequential Compression Device (SCD) (Miranda Edouard MD, R1) Assessment and Plan Assessment and Plan Patient is a 77-year-old Female with PMHx of ESRD (on HD), s/p kidney transplant , HTN brought in by EMS due to AMS witness by . Pt back to baseline mental status. No other complains. Afebrile, VS WNL. Pt admitted for observation. Code Status Full code Discussed Condition With sdw Dr. Vu wdw Dr. Echols (Miranda Edouard MD, R1) Attending Attestation THIS CASE WAS DISCUSSED WITH THE RESIDENT PHYSICIAN. I HAVE REVIEWED THE RECORD AND AGREE WITH THE ABOVE NOTE AND PLAN OF CARE WAS DISCUSSED. I HAVE AUTHORIZED THE ORDER FOR PLACEMENT IN OUT-PATIENT OBSERVATION STATUS. (Muriel Echols MD) Problem List: (1) Encephalopathy ICD Codes: G93.40 - Encephalopathy, unspecified Status: Resolved Plan: Patient back to baseline mental status. No other complains. Afebrile, VS WNL. DDX incliude: medication induced ams, infection with possible source pna, encephalopathy caused by ammonia accumulation, seizure -WCB-7.2, CMP WNL, lactic acid- 0.9, troponin, negative UA, ammonia WNL -CT head: No acute intracranial abnormality -CXR: BL pleural effusion, ddx aspiration vs pna -f/u neuro checks Q4h -Patient placed on tele, f/u EKG -f/u bnp, legionella and pneuno urine ag, mag, phosphorus,hemoccult, -f/u am labs: cbc with diff, (2) Kidney transplant recipient ICD Codes: Z94.0 - Kidney transplant status Status: Chronic Plan: -c/w tacrolimus 1mg BID (3) End stage kidney disease ICD Codes: N18.6 - End stage renal disease Status: Chronic Plan: -monitor electrolytes, I/O -renally dose meds -no nephrotoxic agents -Last HD 03/05/17 (4) HTN (hypertension) ICD Codes: I10 - Hypertension Status: Chronic Plan: -c/w home medications (5) Nutrition, metabolism, and development symptoms ICD Codes: R63.8 - Other symptoms and signs concerning food and fluid intake Plan: Fluids: no indicated at this time Electrolytes: WNL, replete as needed Nutrition: Renal diet DVT ppx: heparin 5,000 units Q8H SQ CODE: FULL CODE (Miranda Edouard MD, R1) Problem Qualifiers (1) HTN (hypertension): Qualified Codes: I10 - Essential (primary) hypertension Miranda Edouard MD, R1 Mar 06, 2017 17:57 Muriel Echols MD Mar 07, 2017 11:52
[2017-03-06] MEDS: GABAPENTIN 100 MG CAP PO SCH (18:00)
[2017-03-06] MEDS: TACROLIMUS 1 MG CAP PO SCH (18:00)
[2017-03-06] MEDS: SODIUM BICARBONATE 650 MG TAB PO SCH (18:00)
[2017-03-06] MEDS: HEPARIN SODIUM - SQ 10,000 UNITS/ML VIAL SQ SCH (18:00)
[2017-03-06] MEDS ORDERED: ATORVASTATIN 20 MG TAB PO SCH (21:00)
[2017-03-06] MEDS: busPIRone HCL 5 MG TAB PO SCH (21:14)
[2017-03-06] MEDS: METOPROLOL TARTRATE 100 MG TAB PO SCH (21:14)
[2017-03-06] MEDS: SODIUM CHLORIDE 0.9% FLUSH 10 ML FLUSH IV FLUSH SCH (21:14)
[2017-03-06] MEDS: DOCUSATE SODIUM 50 MG/SENNA 8.6 MG TAB PO SCH (21:14)
[2017-03-06 22:31] LABS: MAGNESIUM 2.5 MG/DL (1.5-2.5)
[2017-03-07] MEDS: HEPARIN SODIUM - SQ 10,000 UNITS/ML VIAL SQ SCH ×2 (02:00→10:15)
[2017-03-07 04:15] VITALS: BP 153/72; PULSE 63; RESP 18; TEMP 98.1; O2SAT 96
[2017-03-07 05:18] LABS: AUTOMATED NEUTROPHIL # 2.4 TH/MM3 (1.8-7.7); BASOPHIL # 0.1 TH/MM3 (0-0.2); BASOPHIL % 1.3 % (0.0-2.0); EOSINOPHIL # 0.2 TH/MM3 (0-0.4); EOSINOPHIL % 4.3 % (0.0-4.0); HEMATOCRIT 34.4 % (35.0-46.0); HEMO FLAGS DIFF FINAL; LYMPH % 36.6 % (9.0-44.0); LYMPHOCYTE # 1.9 TH/MM3 (1.0-4.8); MEAN CELL VOLUME 102.7 FL (80.0-100.0); MEAN CORPUSCULAR HEMOGLOBIN 33.6 PG (27.0-34.0); MEAN CORPUSCULAR HGB CONC 32.7 % (32.0-36.0); MONO % 9.8 % (0.0-8.0); PLATELET COUNT 147 TH/MM3 (150-450); RED BLOOD COUNT 3.35 MIL/MM3 (4.00-5.30); RED CELL DISTRIBUTION WIDTH 14.8 % (11.6-17.2); WHITE BLOOD COUNT 5.1 TH/MM3 (4.0-11.0)
[2017-03-07] MEDS: TACROLIMUS 1 MG CAP PO SCH (05:46)
[2017-03-07 05:54] LABS: ALT (GPT) 25 U/L (10-53); ANION GAP 11 MEQ/L (5-15); AST (GOT) 24 U/L (15-37); BICARBONATE 24.7 MEQ/L (21.0-32.0); BLOOD UREA NITROGEN 39 MG/DL (7-18); CHLORIDE 105 MEQ/L (98-107); GLOMERULAR FILTRATION RATE 12 ML/MIN (>89); POTASSIUM 4.3 MEQ/L (3.5-5.1); SODIUM (NA) 141 MEQ/L (136-145)
[2017-03-07 05:57] LABS: ALKALINE PHOSPHATASE 75 U/L (45-117); TOTAL BILIRUBIN ADULT 0.3 MG/DL (0.2-1.0)
[2017-03-07] MEDS ORDERED: LEVOTHYROXINE SODIUM 25 MCG TAB PO SCH (06:00)
[2017-03-07 07:11] VITALS: PULSE 59
[2017-03-07 07:57] VITALS: BP 197/85; PULSE 66; RESP 20; TEMP 97.6; O2SAT 97
[2017-03-07] MEDS: SODIUM BICARBONATE 650 MG TAB PO SCH (08:07)
[2017-03-07] MEDS: GABAPENTIN 100 MG CAP PO SCH (08:07)
[2017-03-07] MEDS: busPIRone HCL 5 MG TAB PO SCH (08:08)
[2017-03-07] MEDS: METOPROLOL TARTRATE 100 MG TAB PO SCH (08:09)
[2017-03-07] MEDS: SODIUM CHLORIDE 0.9% FLUSH 10 ML FLUSH IV FLUSH SCH (08:15)
[2017-03-07] MEDS: DOCUSATE SODIUM 50 MG/SENNA 8.6 MG TAB PO SCH (08:15)
[2017-03-07] MEDS ORDERED: ISOSORBIDE DINITRATE 10 MG TAB PO SCH (09:00)
[2017-03-07] MEDS ORDERED: SERTRALINE HCL 50 MG TAB PO SCH (09:00)
[2017-03-07] MEDS ORDERED: predniSONE 5 MG TAB PO SCH (09:00)
[2017-03-07] MEDS ORDERED: ASPIRIN 81 MG CHEW TAB CHEW SCH (09:00)
[2017-03-07] MEDS ORDERED: POTASSIUM CHLORIDE 20 MEQ CONTROLLED RELEASE TAB PO SCH (09:00)
[2017-03-07] MEDS ORDERED: FUROSEMIDE 20 MG TAB PO SCH (09:00)
--- NOTE | 2017-03-07 10:13 | HHI.FPPN ---
Problem Problem List: (1) Encephalopathy (2) CKD (chronic kidney disease) stage 5, GFR less than 15 ml/min (3) DM (diabetes mellitus) (4) HTN (hypertension) (5) Hypothyroidism (6) Anemia in CKD (chronic kidney disease) Subjective Subjective 77 year old women that was brought to the ED via [facility] because her was worried when he returned home from running errands that the patient was sleeping in a chair and he had a hard time arousing the patient. Once she was aroused she also appeared to be a little confused. The patient was admitted for observation for transient AMS that had resolved while in the ED prior to admission. The patient denied any confusion or other neurologic symptoms, denied fever/chills or systemic symptoms either at admission. The patient does have a complicated medical history and she is a snow-bird from [place] and has spent the last three days traveling in a car. She also uses ambien for sleep and reports she did take this medication the night prior and this often makes her groggy/confused. She is ESRD on dialysis. On time of the exam this am -- she reports no symptoms, she is alert, oriented and at her baseline for how she feels. She had no events overnight of monitoring and she was not given any therapies overnight. ROS negative except as listed above Past Medical History HTN Neuropathy Anxiety ESRD on HD mon,mon,mon likely CAD Past Surgical History Right kidney transplant- 2004 av fistula revision- Nov 2016 Please see the resident H and P for further information regarding the [facility] [place]PS/ /[facility] Objective Objective Last Impressions Head CT 03/06/171415 Signed Impressions: Service Date/Time: Monday, March 06, 2017 14:57 - CONCLUSION: 1. No acute intracranial abnormality or interval change. Stew Martines MD Chest X-Ray 03/06/171415 Signed Impressions: Service Date/Time: Monday, March 06, 2017 15:20 - CONCLUSION: 1. Mild left lower lobe airspace disease and associated probable trace pleural effusion. 2. Subtle right lung base airspace disease and questionable trace associated effusion. 3. Differential considerations include aspiration and pneumonia in the proper clinical setting. Stew Martines MD Laboratory Tests - Abnormals Test 03/06/17 14:25 03/06/17 17:15 03/07/17 04:47 Red Blood Count 3.38 MIL/MM3 3.35 MIL/MM3 Hemoglobin 11.2 GM/DL 11.3 GM/DL Hematocrit 34.9 % 34.4 % Mean Corpuscular Volume 103.1 FL 102.7 FL Monocytes (%) (Auto) 11.1 % 9.8 % Blood Urea Nitrogen 35 MG/DL 39 MG/DL Creatinine 3.55 MG/DL 3.70 MG/DL Total Protein 6.1 GM/DL 5.7 GM/DL Calcium Level 8.1 MG/DL 8.1 MG/DL Estimat Glomerular Filtration Rate 13 ML/MIN 12 ML/MIN Phosphorus Level 5.3 MG/DL B-Type Natriuretic Peptide 1166 PG/ML Urine Protein 100 mg/dL Urine Leukocyte Esterase SMALL Platelet Count 147 TH/MM3 Eosinophils (%) (Auto) 4.3 % Random Glucose 69 MG/DL Albumin 2.9 GM/DL Vital Signs 03/06/17 03/06/17 03/06/17 03/06/17 13:54 14:34 16:00 17:07 Temp 97.8 Pulse 67 66 66 67 Resp 16 20 20 18 B/P (MAP) 146/91 (109) 149/89 (109) 197/77 (117) 177/87 (117) Pulse Ox 100 98 100 100 O2 Delivery Room Air Room Air Room Air 03/06/17 03/06/17 03/06/17 03/06/17 18:14 18:36 19:39 23:46 Temp 98.0 97.5 98.0 Pulse 65 66 64 Resp 18 20 18 B/P (MAP) 187/82 (117) 184/86 (118) 152/67 (95) Pulse Ox 100 98 96 03/07/17 03/07/17 03/07/17 04:15 07:11 07:57 Temp 98.1 97.6 Pulse 63 59 66 Resp 18 20 B/P (MAP) 153/72 (99) 197/85 (122) Pulse Ox 96 97 Physical exam CONSTITUTIONAL/GEN: normally nourished, in NAD. EYES: conjunctiva normal, PERRLA, EOMI. ENT: Mouth and pharynx normal. NECK: thyroid midline, carotids symmetrical. LUNGS: clear A-P, respiratory effort is normal. CARDIOVASCULAR: RR without murmur or gallop. No significant edema. GI/ABD: soft without masses, without organomegaly. : no CVA tenderness NEURO: No focal deficits. Gait is normal SKIN: color normal, no rashes noted. HEME/LYMPH: no bruising, petechia or significant adenopathy MUSC: back is normal in appearance. Extremities are normal in appearance. PSYCH/MENTAL STATUS: Alert and oriented x 3. Assessment Assessment: (1) Encephalopathy Plan: This has completely resolved even prior to admission. She was admitted for observation overnight and there were no further symptoms or events noted. Patient is completely back to her baseline. CT head was negative, CXR report states possible pneumonia vs atelectasis. Reviewed the film personally and do not feel there is a pneumonia on xray and the clinical picture does not support the diagnosis of pneumonia. Patients WBC are normal, no fever, and no respiratory symptoms. I suspect this could be related to the long days of travel and extreme fatigue along with the use of 10mg Ambien. DWPT at length that I recommend she d/c the use of Ambien as this type of sedative medication, especially in the setting of a patient with ESRD on dialysis, has the potential to cause side effects, problems and falls, etc. She is back to her baseline will d.c home with fu for dialysis this afternoon which she already has set up and fu with nephrology here and her PCP here. (2) CKD (chronic kidney disease) stage 5, GFR less than 15 ml/min Plan: Stable -- due for dialysis this afternoon -- she already has appointment set up and ready to go at her outpatient center (3) Anemia in CKD (chronic kidney disease) Plan: This appears to be stable -- no intervention needed at this time (4) DM (diabetes mellitus) Plan: This is stable-- no changes -- cont her fu with PCP (5) HTN (hypertension) Plan: This is stable - no changes -- cont her fu with PCP (6) Hypothyroidism Plan: Stable Assessment 77 year old patient with ESRD on hemodialysis with a transient episode of difficulty to arouse and confusion following three day car trip and use of Ambien for sedation. Workup was unrevealing and patient resolved her symptoms without any intervention. Suspect due to combination of fatigue and Ambien in this patient. No sign of CVA/TIA or systemic infection. PLAN PLAN Patient seen and dw the resident team -- Dr. Weaver, Dr. Edouard, Dr. Horace Echols,Muriel Torres MD Mar 07, 2017 10:13
--- NOTE | 2017-03-07 10:16 | HHI.DCPOC ---
Discharge Care Plan Diagnosis: (1) Encephalopathy Goals to Promote Your Health * To prevent worsening of your condition and complications * To maintain your health at the optimal level Directions to Meet Your Goals Take your medications as prescribed Follow your dietary instruction Follow activity as directed Keep your appointments as scheduled Take your immunizations and boosters as scheduled If your symptoms worsen call your PCP, if no PCP go to Urgent Care Center or Emergency Room Smoking is Dangerous to Your Health. Avoid second hand smoke Call the 24-hour hour crisis hotline for domestic abuse at Miranda Edouard MD, R1 Mar 07, 2017 10:16
--- NOTE | 2017-03-07 19:15 | EKG ---
Date Performed: 03/06/2017 Time Performed: 14:49:10 PTAGE: 77 years EKG: Sinus rhythm WITH SINUS ARRHYTHMIA MARKED LEFT AXIS DEVIATION LEFT BUNDLE BRANCH BLOCK Since previous tracing, no significant change noted ABNORMAL ECG PREVIOUS TRACING : 06/20/2016 15.18 DOCTOR: Spike Killian Interpretating Date/Time 03/07/2017 19:13:13
== END 2017-03-07 14:35 | disposition home or self-care (01) ==
LOC: NEPC 13:44 → INTOOBSV 16:16 → NEDA 16:16 → NEPFCDU 18:34
PROVIDERS: ADMIT Family Medicine; ATTEND Family Medicine
DX: G93.40 Encephalopathy, unspecified (principal); J90 Pleural effusion, not elsewhere classified; R41.82 Altered mental status, unspecified; R55 Syncope and collapse; I44.7 Left bundle-branch block, unspecified; R94.31 Abnormal electrocardiogram [ECG] [EKG]; I49.8 Other specified cardiac arrhythmias; I12.0 Hypertensive chronic kidney disease with stage 5 chronic kidney disease or end stage renal disease; E11.22 Type 2 diabetes mellitus with diabetic chronic kidney disease; N18.6 End stage renal disease; D63.1 Anemia in chronic kidney disease; E78.00 Pure hypercholesterolemia, unspecified; I25.2 Old myocardial infarction; K21.9 Gastro-esophageal reflux disease without esophagitis; E03.9 Hypothyroidism, unspecified; E11.40 Type 2 diabetes mellitus with diabetic neuropathy, unspecified; F41.9 Anxiety disorder, unspecified; M19.90 Unspecified osteoarthritis, unspecified site; Z99.2 Dependence on renal dialysis; Z87.891 Personal history of nicotine dependence; Z94.0 Kidney transplant status
CPT/HCPCS: 70450; 71010; 80053; 81001; 82140; 82550; 83605; 83735; 83880; 84100; 84443; 84484; 85025; 85610; 85730; 87449; 93005; 96372; 99285; G0378; J0456; J0696; J1644; J7050; J7507; J7512